=== PATIENT | male | born 1975 | race Caucasian/White ===

== ENCOUNTER 2022-03-02 08:08 | Inpatient (IN) | payer BC ==
--- NOTE | 2022-03-02 08:35 | ED ---
General Adult HPI - General Chief complaint: Chest Pain Stated complaint: Chest pain Time Seen by Provider: 03/02/22 08:16 Source: patient, RN notes reviewed, old records reviewed Mode of arrival: ambulatory Limitations: no limitations - History of Present Illness Initial comments: 46-year-old male with an episode of chest pain while at rest or patient was driving his car, developed pain in the center of his chest with bilateral arm pain. Patient did have associated nausea without vomiting.. He has no prior history of coronary artery disease. No cough. No fever. No dyspnea. He is a current smoker. Patient has since improved. - Related Data Allergies Allergy/AdvReac Type Severity Reaction Status Date / Time No Known Allergies Allergy Verified 03/02/22 08:18 Review of Systems ROS Statement: Those systems with pertinent positive or pertinent negative responses have been documented in the HPI. ROS Other: All systems not noted in ROS Statement are negative. Past Medical History Past Medical History: No Reported History History of Any Multi-Drug Resistant Organisms: None Reported Past Surgical History: Appendectomy Past Psychological History: Anxiety Smoking Status: Current every day smoker Past Alcohol Use History: Occasional Past Drug Use History: None Reported General Exam Limitations: no limitations General appearance: alert, in no apparent distress Head exam: Present: atraumatic, normocephalic Eye exam: Present: normal appearance, PERRL ENT exam: Present: normal exam Neck exam: Present: normal inspection. Absent: tenderness, meningismus Respiratory exam: Present: normal lung sounds bilaterally. Absent: respiratory distress, wheezes, rales Cardiovascular Exam: Present: regular rate, normal rhythm GI/Abdominal exam: Present: soft. Absent: distended, tenderness, guarding Extremities exam: Present: normal inspection, normal capillary refill. Absent: pedal edema, calf tenderness Neurological exam: Present: alert, oriented X3, CN II-XII intact. Absent: motor sensory deficit Psychiatric exam: Present: normal affect, normal mood Skin exam: Present: warm, dry, intact. Absent: cyanosis, diaphoretic Course Vital Signs 03/02/22 08:16 Temperature 97.7 F Pulse Rate 85 Respiratory 20 Rate Blood Pressure 163/99 O2 Sat by Pulse 98 Oximetry - Reevaluation(s) Reevaluation #1: 03/02/22 10:11 Patient is asymptomatic. EKG Findings - EKG Comments: EKG Findings:: EKG: Sinus rhythm rate of 84, W[place] interval 196, QRS duration 99, QTC 42, either tremor artifact versus flutter wave. No ST segment elevation. Medical Decision Making - Medical Decision Making 46-year-old male with no prior history of CAD presents with an episode of typical chest pain. EKG sinus rhythm without ST segment elevation. Chest x-ray is clear. Normal CBC, normal electrolytes, patient does have an elevated troponin at 0.07. His symptoms began just prior to arrival in the emergency department. Believe this is consistent with a non-ST segment elevated [place]. Patient is given aspirin and started on heparin in the emergency department. He will be admitted with cardiology on consult. The admitting physician and playground attendant have been paged. - Lab Data Result diagrams: 03/02/22 08:31 03/02/22 08:31 Lab Results 03/02/22 03/02/22 03/02/22 Range/Units 08:31 08:31 08:31 WBC 8.0 (3.8-10.6) k/uL RBC 4.57 (4.30-5.90) m/uL Hgb 14.0 (13.0-17.5) gm/dL Hct 38.7 L (39.0-53.0) % MCV 84.7 (80.0-100.0) fL MCH 30.6 (25.0-35.0) pg MCHC 36.2 (31.0-37.0) g/dL RDW 13.0 (11.5-15.5) % Plt Count 283 (150-450) k/uL MPV 8.4 Neutrophils % 63 % Lymphocytes % 24 % Monocytes % 8 % Eosinophils % 2 % Basophils % 0 % Neutrophils # 5.1 (1.3-7.7) k/uL Lymphocytes # 1.9 (1.0-4.8) k/uL Monocytes # 0.6 (0-1.0) k/uL Eosinophils # 0.2 (0-0.7) k/uL Basophils # 0.0 (0-0.2) k/uL PT 10.0 (9.0-12.0) sec INR 0.9 (<1.2) APTT 22.3 (22.0-30.0) sec D-Dimer 0.37 (<0.60) mg/L FEU Sodium 138 (137-145) mmol/L Potassium 4.7 (3.5-5.1) mmol/L Chloride 109 H (98-107) mmol/L Carbon Dioxide 17 L (22-30) mmol/L Anion Gap 12 mmol/L BUN 14 (9-20) mg/dL Creatinine 0.74 (0.66-1.25) mg/dL Est GFR (CKD-EPI)AfAm >90 (>60 ml/min/1.73 sqM) Est GFR (CKD-EPI)NonAf >90 (>60 ml/min/1.73 sqM) Glucose 123 H (74-99) mg/dL Calcium 9.7 (8.4-10.2) mg/dL Magnesium 1.9 (1.6-2.3) mg/dL Total Bilirubin 0.5 (0.2-1.3) mg/dL AST 38 (17-59) U/L ALT 49 (4-49) U/L Alkaline Phosphatase 71 (38-126) U/L Troponin I (0.000-0.034) ng/mL Total Protein 7.0 (6.3-8.2) g/dL Albumin 4.5 (3.5-5.0) g/dL Lipase 101 (23-300) U/L 03/02/22 Range/Units 08:31 WBC (3.8-10.6) k/uL RBC (4.30-5.90) m/uL Hgb (13.0-17.5) gm/dL Hct (39.0-53.0) % MCV (80.0-100.0) fL MCH (25.0-35.0) pg MCHC (31.0-37.0) g/dL RDW (11.5-15.5) % Plt Count (150-450) k/uL MPV Neutrophils % % Lymphocytes % % Monocytes % % Eosinophils % % Basophils % % Neutrophils # (1.3-7.7) k/uL Lymphocytes # (1.0-4.8) k/uL Monocytes # (0-1.0) k/uL Eosinophils # (0-0.7) k/uL Basophils # (0-0.2) k/uL PT (9.0-12.0) sec INR (<1.2) APTT (22.0-30.0) sec D-Dimer (<0.60) mg/L FEU Sodium (137-145) mmol/L Potassium (3.5-5.1) mmol/L Chloride (98-107) mmol/L Carbon Dioxide (22-30) mmol/L Anion Gap mmol/L BUN (9-20) mg/dL Creatinine (0.66-1.25) mg/dL Est GFR (CKD-EPI)AfAm (>60 ml/min/1.73 sqM) Est GFR (CKD-EPI)NonAf (>60 ml/min/1.73 sqM) Glucose (74-99) mg/dL Calcium (8.4-10.2) mg/dL Magnesium (1.6-2.3) mg/dL Total Bilirubin (0.2-1.3) mg/dL AST (17-59) U/L ALT (4-49) U/L Alkaline Phosphatase (38-126) U/L Troponin I 0.077 H* (0.000-0.034) ng/mL Total Protein (6.3-8.2) g/dL Albumin (3.5-5.0) g/dL Lipase (23-300) U/L Critical Care Time Critical Care Time: Yes Total Critical Care Time: 35 Disposition Clinical Impression: Acute non-ST elevation myocardial infarction (NSTEMI) Disposition: ADMITTED IP TO THIS HOSP Condition: Stable Is patient prescribed a controlled substance at d/c from ED?: No Referrals: Karissa Whitten MD [Primary Care Provider] - 1-2 days Time of Disposition: 10:12
--- NOTE | 2022-03-02 08:49 | XR ---
EXAMINATION TYPE: XR chest 2V DATE OF EXAM: 03/02/2022 COMPARISON: NONE HISTORY: Chest pain TECHNIQUE: Frontal and lateral views of the chest are obtained. FINDINGS: There is no focal air space opacity, pleural effusion, or pneumothorax seen. The cardiac silhouette size is within normal limits. The osseous structures are intact. There are overlying cynthia ds. IMPRESSION: No acute cardiopulmonary process.
[2022-03-02 08:50] LABS: Basophils % (A) 0 %; Eosinophils # (A) 0.2 k/uL (0-0.7); Eosinophils % (A) 2 %; HCT 38.7 % (39.0-53.0); Lymphocytes # (A) 1.9 k/uL (1.0-4.8); Lymphocytes % (A) 24 %; MCH 30.6 pg (25.0-35.0); MCHC 36.2 g/dL (31.0-37.0); MCV 84.7 fL (80.0-100.0); Mean Platelet Volume 8.4; Monocytes # (A) 0.6 k/uL (0-1.0); Monocytes % (A) 8 %; Neutrophils # (A) 5.1 k/uL (1.3-7.7); Neutrophils % (A) 63 %; Platelet Count 283 k/uL (150-450); RBC 4.57 m/uL (4.30-5.90)
[2022-03-02 09:12] LABS: ALT 49 U/L (4-49); AST 38 U/L (17-59); African American GFR (CKD) >90 (>60 ml/min/1.73 sqM); Albumin 4.5 g/dL (3.5-5.0); Alkaline Phosphatase 71 U/L (38-126); Anion Gap 12 mmol/L; Blood Urea Nitrogen 14 mg/dL (9-20); Calcium 9.7 mg/dL (8.4-10.2); Carbon Dioxide 17 mmol/L (22-30); Chloride 109 mmol/L (98-107); Glucose 123 mg/dL (74-99); Lipase 101 U/L (23-300); Magnesium 1.9 mg/dL (1.6-2.3); Non-African American GFR(CKD) >90 (>60 ml/min/1.73 sqM); Potassium 4.7 mmol/L (3.5-5.1); Sodium 138 mmol/L (137-145); Total Bilirubin 0.5 mg/dL (0.2-1.3)
[2022-03-02 09:14] LABS: INR 0.9 (<1.2); Partial Thromboplastin Time 22.3 sec (22.0-30.0)
[2022-03-02] MEDS ORDERED: ASPIRIN 325 MG TAB PO STA (10:08)
[2022-03-02] MEDS ORDERED: HEPARIN SODIUM 1,000 UN/ML (10ML VL) IV ONE ×2 (10:10→11:58)
[2022-03-02] MEDS ORDERED: NITROGLYCERIN SL TABS 0.4 MG TAB SUBLINGUAL PRN (10:10)
[2022-03-02] MEDS ORDERED: HEPARIN SOD,PORK IN 0.45% NACL 25,000 UNIT in 0.45% NACL 1 250ML.BAG IV SCH ×2 (10:15→16:00)
[2022-03-02] MEDS: ATORVASTATIN 80 MG TAB PO SCH (10:16)
[2022-03-02] MEDS ORDERED: ALPRAZolam 0.5 MG TAB PO PRN (11:08)
[2022-03-02] MEDS ORDERED: ATORVASTATIN 80 MG TAB PO STA (11:08)
[2022-03-02] MEDS ORDERED: ALPRAZolam 0.25 MG TAB PO PRN (11:08)
[2022-03-02] MEDS ORDERED: NITROGLYCERIN OINT 1 INCH/GM PACKET TOPICAL STA (11:13)
[2022-03-02] MEDS: SODIUM CHLORIDE 0.9% 1,000 ML in EMPTY BAG 1 BAG IV SCH (11:19)
[2022-03-02] MEDS ORDERED: VERAPAMIL 2.5 MG/ML 2 ML AMP ONE (11:32)
--- NOTE | 2022-03-02 11:36 | P.CRDCN ---
History of Present Illness History of present illness: This is a 46 year old male with a past medical history of hypertension currently not on medication, dyslipidemia, chronic tobacco use, family history of CAD (mother had IL in her 40s). 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 We have been asked to see in consultation for NSTEMI. He presents to the ER with chest discomfort. Began this morning, he was getting ready for work. It was located on the left side of his chest, radiating to his bilateral arms. He had associated shortness of breath and nausea. It progressively got worse throughout the day. Aggravated by activity. He denies any palpitations, lightheadedness, dizziness, syncope or near syncope. No specific alleviating factors. He states his chest pain resolved on its own when he arrived to the emergency department. He denies any history of CAD, IL, stroke, diabetes. He currently smokes one pack per day. Occasional alcohol use. Denies illicit drug use. DIAGNOSTICS * EKG reveals sinus rhythm, heart rate 84, nonspecific STT wave abnormalities. * Telemetry tracings indicate at bedside, sinus rhythm. * Chest xray no acute cardiopulmonary process * Laboratory reviewed, troponin 0.07 sodium 138, potassium 4.7, BUN 14, serum c rit 0.7, magnesium 1.9, WBC 8.0, hemoglobin 14, platelets 283, d-dimer negative * Current home cardiac medications include simvastatin 20 mg daily. REVIEW OF SYSTEMS At the time of my exam: CONSTITUTIONAL: Denies fever or chills. CARDIOVASCULAR: + chest pain,Denies shortness of breath, orthopnea, PND or palpitations. RESPIRATORY: Denies cough. GASTROINTESTINAL: Denies abdominal pain, diarrhea, constipation, nausea or vomiting. MUSCULOSKELETAL: Denies myalgias. NEUROLOGIC: Denies numbness, tingling, headacbe or weakness. ENDOCRINE: Denies fatigue, weight change, polydipsia or polyurina. GENITOURINARY: Denies burning, hematuria or urgency with micturation. HEMATOLOGIC: Denies history of anemia or bleeding. PHYSICAL EXAMINATION Blood pressure 152/94, heart rate 82, afebrile, oxygen saturation 95% on room air CONSTITUTIONAL: No apparent distress. HEENT: Head is normocephalic. Pupils are equal, round. Sclerae anicteric. Mucous membranes of the mouth are moist. No JVD. No carotid bruit. CHEST EXAMINATION: Lungs are clear to auscultation. No chest wall tenderness is noted on palpation or with deep breathing. HEART EXAMINATION: Regular rate and rhythm. S1, S2 heard. No murmurs, gallops or rub. ABDOMEN: Soft, nontender. Positive bowel sounds. EXTREMITIES: 2+ peripheral pulses, no lower extremity edema and no calf tenderness. NEUROLOGIC EXAMINATION: Patient is awake, alert and oriented x3. ASSESSMENT NSTEMI History of hypertension Dyslipidemia Chronic nicotine dependence Family history of coronary artery disease PLAN Plan for cardiac catheterization today with Dr. Young. Keep patient NPO Aspirin, statin, nitropaste Obtain 2D echocardiogram and doppler study to assess cardiac structure and function. I have discussed the risks, benefits and alternative therapies for the above- mentioned procedure and for both sedation/analgesia as well as necessary blood product administration, if indicated, as they pertain to this patient. The patient has indicated understanding and acceptance of the risks and procedures discussed. Questions have been answered appropriately and he is agreeable to move forward with the above-stated procedure. Further recommendations based on clinical course Nurse practitioner note has been reviewed by physician. Signing provider agrees with the documented findings, assessment, and plan of care. Past Medical History Past Medical History: No Reported History History of Any Multi-Drug Resistant Organisms: None Reported Past Surgical History: Appendectomy Past Psychological History: Anxiety Smoking Status: Current every day smoker Past Alcohol Use History: Occasional Past Drug Use History: None Reported Medications and Allergies Home Medications Medication Instructions Recorded Confirmed Type Rosuvastatin [Crestor] 20 mg PO DAILY 03/02/22 03/02/22 History Vortioxetine Hydrobromide 10 mg PO DAILY 03/02/22 03/02/22 History [Trintellix] Allergies Allergy/AdvReac Type Severity Reaction Status Date / Time No Known Allergies Allergy Verified 03/02/22 10:40 Physical Exam Vitals: Vital Signs Temp Pulse Resp BP Pulse Ox 03/02/22 08:16 97.7 F 85 20 163/99 98 Intake and Output 03/01/22 03/02/22 03/02/22 22:59 06:59 14:59 Other: Weight 99.79 kg Results 03/02/22 08:31 03/02/22 08:31 Cardiac Enzymes 03/02/22 03/02/22 Range/Units 08:31 08:31 AST 38 (17-59) U/L Troponin I 0.077 H* (0.000-0.034) ng/mL Coagulation 03/02/22 Range/Units 08:31 PT 10.0 (9.0-12.0) sec APTT 22.3 (22.0-30.0) sec CBC 03/02/22 Range/Units 08:31 WBC 8.0 (3.8-10.6) k/uL RBC 4.57 (4.30-5.90) m/uL Hgb 14.0 (13.0-17.5) gm/dL Hct 38.7 L (39.0-53.0) % Plt Count 283 (150-450) k/uL Comprehensive Metabolic Panel 03/02/22 Range/Units 08:31 Sodium 138 (137-145) mmol/L Potassium 4.7 (3.5-5.1) mmol/L Chloride 109 H (98-107) mmol/L Carbon Dioxide 17 L (22-30) mmol/L BUN 14 (9-20) mg/dL Creatinine 0.74 (0.66-1.25) mg/dL Glucose 123 H (74-99) mg/dL Calcium 9.7 (8.4-10.2) mg/dL AST 38 (17-59) U/L ALT 49 (4-49) U/L Alkaline Phosphatase 71 (38-126) U/L Total Protein 7.0 (6.3-8.2) g/dL Albumin 4.5 (3.5-5.0) g/dL Current Medications Generic Name Dose Route Start Last Admin Trade Name Freq PRN Reason Stop Dose Admin Aspirin 325 mg 03/03/22 09:00 Aspirin 325 Mg Tab PO DAILY [facility] Atorvastatin Calcium 80 mg 03/02/22 10:15 03/02/22 10:16 Atorvastatin 80 Mg Tab PO 80 mg DAILY [facility] Administration Heparin Sodium/Sodium Chloride 250 mls @ 9.999 mls/hr 03/02/22 10:15 03/02/22 10:22 25,000 unit/ Sodium Chloride IV 10.02 units/kg/hr .Q24H RICHA 9.999 mls/hr Administration Protocol 10.02 UNITS/KG/HR Nitroglycerin 0.4 mg 03/02/22 10:10 Nitroglycerin Sl Tabs 0.4 Mg Tab SUBLINGUAL Q5M PRN Chest Pain Intake and Output 03/01/22 03/02/22 03/02/22 22:59 06:59 14:59 Other: Weight 99.79 kg Patient Weight 03/03/22 06:59 Weight 99.79 kg 03/02/22 08:31 03/02/22 08:31
[2022-03-02] MEDS ORDERED: SODIUM CHLORIDE 0.9% 1,000 ML IV ONE (11:43)
[2022-03-02] MEDS ORDERED: fentaNYL (PF) 50 MCG/ML 2 ML AMP ONE (11:49)
[2022-03-02] MEDS ORDERED: fentaNYL (PF) 50 MCG/ML 2 ML AMP IV ONE (11:53)
[2022-03-02] MEDS ORDERED: LIDOCAINE 1% INJ 10MG/ML (30 ML VIAL-PF) SQ ONE (11:55)
[2022-03-02] MEDS ORDERED: MIDAZOLAM 2 MG/2 ML VIAL IV ONE (11:55)
[2022-03-02] MEDS ORDERED: VERAPAMIL SYRINGE (5 MG/10 ML) INTRAARTER ONE (11:56)
[2022-03-02] MEDS ORDERED: NITROGLYCERIN OINT 1 INCH/GM PACKET TOPICAL ONE ×2 (12:09→12:11)
[2022-03-02] MEDS ORDERED: IOPAMIDOL-370 125ML BTL INJ ONE (12:33)
[2022-03-02] MEDS ORDERED: RX INFO: IV CONTRAST WAS GIVEN 1 EACH MISC MISCELLANE PRN (12:39)
[2022-03-02] MEDS ORDERED: MD COMMUNICATION TO PHARMACY 1 EACH MISC PO ONE ×2 (14:12)
[2022-03-02] MEDS: lisinopriL 5 MG TAB PO SCH (14:19)
[2022-03-02] MEDS: SODIUM CHLORIDE 0.9% 1,000 ML IV SCH (14:30)
--- NOTE | 2022-03-02 14:54 | P.CONS ---
History of Present Illness - Reason for Consult Consult date: 03/02/22 History of colon polyps Requesting physician: Kj Kaba - Chief Complaint Chest pain - History of Present Illness This a pleasant 46-year-old male with a past medical history including hypertension, dyslipidemia, chronic tobacco use who presented to the emergency department today with complaints of chest pain. Apparently patient was driving and had substernal chest pain that radiated down both of his arms. He had associated nausea but no vomiting. 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 Reportedly had extensive LAD disease and is scheduled for coronary bypass on Saturday with cardiothoracic. Cardio thoracic surgery reached out to gastroenterology because they had some concerns patient had previous history of colon polyps last colonoscopy 15 years ago and has had some intermittent bright red blood per rectum with stools. Patient states last colonoscopy about 15 years ago while he was in the , at that time it was related to blood in stool. He was told that he had colon polyps, hemorrhoids and bleeding was likely related to his hemorrhoids. Patient never had a follow-up colonoscopy since that time. He states his bowel movements are regular, usually daily, denies any hard stools or straining. However he does state that he will have intermittent bright red blood with stools on occasion. He notes it as small amount. On admission hemoglobin stable at 14. He denies any history of colitis or Crohn's disease, no associated abdominal cramping or pain with bleeding. Denies any previous history of ulcers. Denies any current rectal bleeding or blood in his stool. Review of Systems REVIEW OF SYSTEMS: CARDIOPULMONARY: Presented with chest pain, shortness of breath. Resolved at this time. Gastrointestinal: Denies any abdominal pain. No nausea or vomiting. No hematemesis, coffee-ground emesis. No rectal bleeding, or melena. GENITOURINARY: No dysuria or hematuria. MUSCULOSKELETAL: Reports normal range of motion., Joint pain. SKIN: No rashes. No jaundice. ENDOCRINE: No chills, fevers. No excessive weight gain or loss. No polydipsia or polyuria. PSYCHIATRIC: Unremarkable. NEUROLOGY: No change in mental status. Denies dizziness, headache. ENT: Vision unremarkable. CONSTITUTIONAL: No recent weight loss. No fever, chills, night sweats. Past Medical History Past Medical History: No Reported History History of Any Multi-Drug Resistant Organisms: None Reported Past Surgical History: Appendectomy Past Psychological History: Anxiety Smoking Status: Current every day smoker Past Alcohol Use History: Occasional Past Drug Use History: None Reported - Past Family History Mother Family Medical History: Diabetes Mellitus, Myocardial Infarction (ID) (At age 48) Father Family Medical History: No Reported History Medications and Allergies Home Medications Medication Instructions Recorded Confirmed Type Rosuvastatin [Crestor] 20 mg PO DAILY 03/02/22 03/02/22 History Vortioxetine Hydrobromide 10 mg PO DAILY 03/02/22 03/02/22 History [Trintellix] Allergies Allergy/AdvReac Type Severity Reaction Status Date / Time No Known Allergies Allergy Verified 03/02/22 10:40 Physical Exam Vitals: Vital Signs Temp Pulse Pulse Resp BP BP Pulse Ox 03/02/22 13:54 67 16 139/73 97 03/02/22 13:24 77 16 148/74 98 03/02/22 13:09 67 16 143/70 97 03/02/22 12:54 68 16 143/68 98 03/02/22 12:42 82 16 150/82 97 03/02/22 11:00 82 18 152/94 95 03/02/22 10:30 72 22 140/90 97 03/02/22 10:00 64 22 137/87 96 03/02/22 09:30 77 22 129/83 97 03/02/22 09:00 82 18 156/91 97 03/02/22 08:16 97.7 F 85 20 163/99 98 Intake and Output 03/01/22 03/02/22 03/02/22 22:59 06:59 14:59 Intake Total 400 Balance 400 Intake: IV 400 Other: Weight 99.79 kg General appearance: The patient is alert, oriented, appears in no acute distress. HET: Head is normocephalic and atraumatic. Conjunctiva pink. Sclera anicteric. Neck: Supple without lymphadenopathy. Trachea midline. Heart: S1 S2. Regular rate and rhythm. Lungs: Clear to auscultation. Abdomen: Soft, nontender, nondistended with bowel sounds. No guarding or rigidity. Skin: No rashes. No jaundice. Extremities: Normal skin color and turgor. No pedal edema. Neurological: No focal deficits. Alert and oriented x3. Results CBC & Chem 7: 03/02/22 08:31 03/02/22 08:31 Labs: Abnormal Lab Results - Last 24 Hours (Table) 03/02/22 03/02/22 03/02/22 Range/Units 08:31 08:31 08:31 Hct 38.7 L (39.0-53.0) % Chloride 109 H (98-107) mmol/L Carbon Dioxide 17 L (22-30) mmol/L Glucose 123 H (74-99) mg/dL Troponin I 0.077 H* (0.000-0.034) ng/mL 03/02/22 Range/Units 11:13 Hct (39.0-53.0) % Chloride (98-107) mmol/L Carbon Dioxide (22-30) mmol/L Glucose (74-99) mg/dL Troponin I 0.212 H* (0.000-0.034) ng/mL Chest x-ray: report reviewed (No acute cardiopulmonary process) Assessment and Plan (1) Rectal bleeding Narrative/Plan: 46-year-old male who presented to the emergency department with chest pain diagn osed with NSTEMI and underwent cardiac catheterization showing disease of the LAD. Patient is scheduled for bypass surgery on Saturday. Cardiothoracic surgery was obtaining history and patient had made it to a colonoscopy 15 years ago findings of colon polyps and occasional intermittent rectal bleeding. The reason behind initial colonoscopy was due to occasional rectal bleeding which he told was likely due to hemorrhoids. Patient states that he still does have occasional intermittent bright red blood with bowel movements. Patient's hemoglobin is stable at 14. Likely etiology is related to hemorrhoids, however other possible etiologies need to be considered such as AVM, colon polyps, and/ or colon cancer. Patient would have to undergo colonoscopy to assess all etiologies, unfortunately there is no gastroenterology available through the weekend. Due to patient's history of colon polyps would recommend at some point in the future, he undergo a colonoscopy which is reasonable to do post bypass surgery. There is no absolute contraindication from our standpoint for anticoagulation. Current Visit: Yes Status: Acute Code(s): K62.5 - HEMORRHAGE OF ANUS AND RECTUM SNOMED Code(s): 14416063 (2) History of colon polyps Current Visit: Yes Status: Acute Code(s): Z86.010 - PERSONAL HISTORY OF COLONIC POLYPS SNOMED Code(s): 526118138 (3) History of hypertension Current Visit: Yes Status: Acute Code(s): Z86.79 - PERSONAL HISTORY OF OTHER DISEASES OF THE CIRCULATORY SYSTEM SNOMED Code(s): 847942659 (4) History of hemorrhoids Current Visit: Yes Status: Acute Code(s): Z87.19 - PERSONAL HISTORY OF OTHER DISEASES OF THE DIGESTIVE SYSTEM SNOMED Code(s): 72723958216696684 (5) Acute non-ST elevation myocardial infarction (NSTEMI) Current Visit: Yes Status: Acute Code(s): I21.4 - NON-ST ELEVATION (NSTEMI) MYOCARDIAL INFARCTION SNOMED Code(s): 210488619 Plan: 1. Continue symptomatic and supportive care 2. Continue recommendations from cardiology and cardiothoracic surgery 3. Recommend colonoscopy for history of colon polyps, rectal bleeding as an ou tpatient. Likely rectal bleeding is related to hemorrhoids, no indication to anticoagulation as patient does not have any active rectal bleeding, hemoglobin stable at 14 Thank you for allowing us to participate in the care of the patient, the GI service will sign off, gastroenterology will not be available at the hospital this weekend and through next week. If further evaluation by gastroenterology is required the patient will need transfer as per the primary team's discretion. Dr. Narinder Young I agree with the dictator's note, documented as a scribe by Crissy Grande.
--- NOTE | 2022-03-02 15:00 | P.GSCN ---
History of Present Illness Consult date: 03/02/22 Reason for Consult: Coronary artery disease, non-ST elevated myocardial infarction this admission evaluation for myocardial revascularization Requesting physician: Jose Young History of present illness: This is a 46-year-old gentleman who follows on an outpatient basis with Dr. Whitten for his primary care service. He has a past medical history significant for hyperlipidemia, hypertension, depression, chronic ongoing tobacco dependence and a family history of early onset coronary artery disease with his mother having a myocardial infarction at age 48. The patient also has a history of colon polyps and has recently been having episodes of diarrhea with occasional bloody stools 1-2 times per month. He presented to the emergency department here at [facility] today with complaints of chest pain associated with shortness of breath, nausea and pain radiating down his bilateral upper extremities. He reports he felt fairly fuzzy in his head during the episode of chest pain. He denies any recent fever, chills, vomiting, palpitations, dizziness, near syncope, syncope, orthopnea, headache, or cough. A 12-lead EKG was completed in the emergency department which showed normal sinus rhythm with nonspecific STT wave abnormalities with a heart rate of 84 BPM. A chest x-ray was completed which showed no acute cardiopulmonary process. Initial laboratory results showed a WBC count of 8.0, hemoglobin 14.0, hematocrit 38.7, platelets 283, PT 10.0, INR 0.9, PTT 22.3, d-dimer 0.37, sodium 138, potassium 4.7, chloride 109, CO2 17, BUN 14, creatinine 0.74, glucose 123, calcium 9.7, magnesium 1.9, initial troponin was slightly elevated at 0.77 and a repeat troponin was elevated at 0.212 ruling him in for a non-ST elevated myocardial infarction. Due to the patient's presenting symptoms, family history of early onset coronary artery disease and his elevated troponins a consult was placed to Dr. valladares from [facility]. The patient subsequently underwent a heart catheterization which demonstrated a 90% stenosis to his proximal left anterior descending coronary artery. The patient's transthoracic 2-D echocardiogram report remains pending. Due to the findings on the heart catheterization a consult was placed to Dr. Angel Colby from cardiothoracic surgery for further treatment recommendations including myocardial revascularization surgery. Review of Systems A 14 point review of systems was completed was negative except as mentioned in HPI. Past Medical History Past Medical History: Hyperlipidemia, Hypertension Last Myocardial Infarction Date:: 03/02/2022 History of Any Multi-Drug Resistant Organisms: None Reported Past Surgical History: Appendectomy Additional Past Surgical History / Comment(s): Colonoscopy 15 years ago with findings of polyps Past Psychological History: Anxiety, Depression Smoking Status: Current every day smoker Past Alcohol Use History: Occasional Past Drug Use History: None Reported - Past Family History Mother Family Medical History: Diabetes Mellitus, Myocardial Infarction ([place]) (At age 48) Father Family Medical History: No Reported History Medications and Allergies Home Medications Medication Instructions Recorded Confirmed Type Rosuvastatin [Crestor] 20 mg PO DAILY 03/02/22 03/02/22 History Vortioxetine Hydrobromide 10 mg PO DAILY 03/02/22 03/02/22 History [Trintellix] Allergies Allergy/AdvReac Type Severity Reaction Status Date / Time No Known Allergies Allergy Verified 03/05/22 06:36 Surgical - Exam Vital Signs Temp Pulse Resp BP Pulse Ox 97.7 F 85 20 163/99 98 03/02/22 08:16 03/02/22 08:16 03/02/22 08:16 03/02/22 08:16 03/02/22 08:16 - General well developed, well nourished, no distress, no pain, obese - Eyes PERRL, normal ocular movement, no pale, no icteric, no deviation - ENT normal pinna, normal nares, normal mucosa, no hearing loss, no congestion, dentures (Upper plate dentures) - Neck Neck is supple, no JVD. no masses, no bruits, trachea midline, no venous distension - Respiratory Lungs essentially clear throughout area and no wheezes, rhonchi or crackles. Respirations are symmetrical and nonlabored. - Cardiovascular Regular rhythm and rate. S1 and S2 present, negative for S3, gallop or murmur. Peripheral pulses palpable. No edema present. - Abdomen Abdomen is soft, nontender and nondistended. Active bowel sounds present in all 4 abdominal quadrants. No guarding or rigidity. No organomegaly appreciated. - Genitourinary Deferred - Rectum Deferred - Integumentary Skin is warm and dry. No clubbing or cyanosis is present. no rash, no growths, no abnormal pigmentation - Neurologic No focal deficits. Cranial nerves II through XII intact. normal coordination, normal sensation - Musculoskeletal Moves all 4 extremities with equal strength bilaterally. - Psychiatric oriented to time, oriented to person, oriented to place, speech is normal, memory intact Results - Labs 03/05/22 12:27 03/05/22 12:27 Abnormal Lab Results - Last 24 Hours (Table) 03/02/22 03/02/22 03/02/22 Range/Units 08:31 08:31 08:31 Hct 38.7 L (39.0-53.0) % Chloride 109 H (98-107) mmol/L Carbon Dioxide 17 L (22-30) mmol/L Glucose 123 H (74-99) mg/dL Troponin I 0.077 H* (0.000-0.034) ng/mL 03/02/22 Range/Units 11:13 Hct (39.0-53.0) % Chloride (98-107) mmol/L Carbon Dioxide (22-30) mmol/L Glucose (74-99) mg/dL Troponin I 0.212 H* (0.000-0.034) ng/mL Diabetes panel 03/02/22 Range/Units 08:31 Sodium 138 (137-145) mmol/L Potassium 4.7 (3.5-5.1) mmol/L Chloride 109 H (98-107) mmol/L Carbon Dioxide 17 L (22-30) mmol/L BUN 14 (9-20) mg/dL Creatinine 0.74 (0.66-1.25) mg/dL Glucose 123 H (74-99) mg/dL Calcium 9.7 (8.4-10.2) mg/dL AST 38 (17-59) U/L ALT 49 (4-49) U/L Alkaline Phosphatase 71 (38-126) U/L Total Protein 7.0 (6.3-8.2) g/dL Albumin 4.5 (3.5-5.0) g/dL Calcium panel 03/02/22 Range/Units 08:31 Calcium 9.7 (8.4-10.2) mg/dL Albumin 4.5 (3.5-5.0) g/dL Pituitary panel 03/02/22 Range/Units 08:31 Sodium 138 (137-145) mmol/L Potassium 4.7 (3.5-5.1) mmol/L Chloride 109 H (98-107) mmol/L Carbon Dioxide 17 L (22-30) mmol/L BUN 14 (9-20) mg/dL Creatinine 0.74 (0.66-1.25) mg/dL Glucose 123 H (74-99) mg/dL Calcium 9.7 (8.4-10.2) mg/dL Adrenal panel 03/02/22 Range/Units 08:31 Sodium 138 (137-145) mmol/L Potassium 4.7 (3.5-5.1) mmol/L Chloride 109 H (98-107) mmol/L Carbon Dioxide 17 L (22-30) mmol/L BUN 14 (9-20) mg/dL Creatinine 0.74 (0.66-1.25) mg/dL Glucose 123 H (74-99) mg/dL Calcium 9.7 (8.4-10.2) mg/dL Total Bilirubin 0.5 (0.2-1.3) mg/dL AST 38 (17-59) U/L ALT 49 (4-49) U/L Alkaline Phosphatase 71 (38-126) U/L Total Protein 7.0 (6.3-8.2) g/dL Albumin 4.5 (3.5-5.0) g/dL - Imaging Chest x-ray: report reviewed, image reviewed EKG: image reviewed Assessment and Plan Assessment: 1. Coronary artery disease with a 90% stenosis to his proximal left anterior descending coronary artery 2. Non-ST elevated myocardial infarction this admission 3. Hypertension 4. Hyperlipidemia 5. History of depression 6. Chronic ongoing tobacco dependence smokes 1 pack of cigarettes per day 7. Frequent episodes of diarrhea with occasional bloody stools 1-2 times per month Plan: The patient was seen and examined at his bedside in the extended stay unit. His chart and diagnostics were reviewed. His case was discussed in detail with Dr. Angel Colby from cardiothoracic surgery. Preoperative testing and preoperative workup has been initiated. Treatment options have been discussed with the patient including myocardial revascularization. Once his preoperative workup has been completed an STS risk score will be calculated and discussed with the patient. Once the patient is able to ambulate a 5 m walk test will be completed. Continue to optimize medical management with aspirin, statin and beta shahid. Medical management and other comorbidities per primary care service. The patient has been tentatively scheduled for off-pump myocardial revascularization surgery with left internal mammary artery, exclusion of left atrial appendage and intraoperative transesophageal echocardiogram for 03/05/2022 to be performed by Dr. Angel Colby. We have consulted Dr. Narinder Young from gastroenterology to follow the episodes of diarrhea and occasional bloody stools. Dr. Vargas has also been consulted for pulmonary and critical care management. More recommendations to follow based on patient's clinical course. Thank you Dr. Bridgette Young for this consult and we look for to working with you in the care of this patient. I have personally seen and examined the patient, performed the documentation and the assessment and plan as written. 30 minutes spent on the visit . Arthur GALLEGOS The patient is a 46 year old male with a past medical history significant for hypertension, hypercholesterolemia, and tobacco use, who presented to the hospital complaining of chest pain. Workup revealed a myocardial infarction. Cardiac catheterization revealed a tight proximal/ostial left anterior descending artery lesion. A coronary artery bypass was recommended. The risks, benefits, and alternatives to the procedure were discussed with the patient and with his family members. All of their questions were answered. Consent was obtained. We will plan on performing his procedure on 03/05/2022.
--- NOTE | 2022-03-02 15:01 | P.CNPUL ---
History of Present Illness Consult date: 03/02/22 Requesting physician: [place] Calero Reason for consult: other (Preoperative pulmonary clearance) Chief complaint: Chest discomfort History of present illness: This is a 46-year-old white male, [id number] smoking history, known history of dyslipidemia, strong family history of coronary artery disease, mother had ND in her 40s, patient presented to the ER with chest discomfort. Patient felt that the pain was left-sided, radiating to upper extremities, it was associated with slight shortness of breath and nausea/diaphoresis. Patient was seen by cardiology and felt to have non-ST elevation myocardial infarction. Patient underwent cardiac catheterization, he was found to have significant extensive LAD disease, patient was advised by cardiology to have myocardial revascularization, and this is scheduled to be done next Saturday. We were asked to see the patient on consultation for pulmonary clearance. Patient doesn't smoke, and he denies any symptoms of cough wheezing or shortness of breath. Never been diagnosed with COPD, not on any inhalers. Patient has been quite active able to walk a mile easily and able to climb a few flights of stairs without any difficulty. Again he had no previous documented pulmonary bedside PFT is pending Review of Systems Constitutional: Negative HEENT: Negative GI: Negative Genitourinary: Negative Pulmonary: Negative Cardiac: As noted in HPI Genitourinary: Negative Muscular skeletal: Negative Urologic: Negative Psychiatric: Negative Hematologic: Negative Skin: Negative Past Medical History Past Medical History: No Reported History History of Any Multi-Drug Resistant Organisms: None Reported Past Surgical History: Appendectomy Past Psychological History: Anxiety Smoking Status: Current every day smoker Past Alcohol Use History: Occasional Past Drug Use History: None Reported Medications and Allergies Home Medications Medication Instructions Recorded Confirmed Type Rosuvastatin [Crestor] 20 mg PO DAILY 03/02/22 03/02/22 History Vortioxetine Hydrobromide 10 mg PO DAILY 03/02/22 03/02/22 History [Trintellix] Allergies Allergy/AdvReac Type Severity Reaction Status Date / Time No Known Allergies Allergy Verified 03/02/22 10:40 Physical Exam Vitals: Vital Signs Temp Pulse Pulse Resp BP BP Pulse Ox 03/02/22 13:54 67 16 139/73 97 03/02/22 13:24 77 16 148/74 98 03/02/22 13:09 67 16 143/70 97 03/02/22 12:54 68 16 143/68 98 03/02/22 12:42 82 16 150/82 97 03/02/22 11:00 82 18 152/94 95 03/02/22 10:30 72 22 140/90 97 03/02/22 10:00 64 22 137/87 96 03/02/22 09:30 77 22 129/83 97 03/02/22 09:00 82 18 156/91 97 03/02/22 08:16 97.7 F 85 20 163/99 98 Intake and Output 03/01/22 03/02/22 03/02/22 22:59 06:59 14:59 Intake Total 400 Balance 400 Intake: IV 400 Other: Weight 99.79 kg Physical Exam: Revealed a 46-year-old white male in no distress very pleasant. Head: Atraumatic, normocephalic. HEENT:[Neck is supple.] [No neck masses.] [No thyromegaly.] [No JVD.] Chest: [Clear throughout, no crackles, no rhonchi, no wheezes.] Cardiac Exam: [Normal S1 and S2, no S3 gallop, no murmur.] Abdomen: [Soft, nontender, no megaly, no rebound, no guarding, normal bowel sounds.] Extremities: [No clubbing, no edema, no cyanosis.] Neurological Exam: [No focal neurologic deficit.] Alert oriented 3 Psychiatric: Normal mood, affect and normal mental status examination. Skin: No rashes. Results - Laboratory Findings CBC and BMP: 03/02/22 08:31 03/02/22 08:31 PT/INR, D-dimer PT 10.0 sec (9.0-12.0) 03/02/22 08:31 INR 0.9 (<1.2) 03/02/22 08:31 D-Dimer 0.37 mg/L FEU (<0.60) 03/02/22 08:31 Abnormal lab findings: Abnormal Labs 03/02/22 03/02/22 03/02/22 08:31 08:31 08:31 Hct 38.7 L Chloride 109 H Carbon Dioxide 17 L Glucose 123 H Troponin I 0.077 H* 03/02/22 11:13 Hct Chloride Carbon Dioxide Glucose Troponin I 0.212 H* - Diagnostic Findings Chest x-ray: image reviewed (Chest x-ray on admission showed no evidence of cardiopulmonary process) Assessment and Plan Assessment: Impression: Coronary artery disease, patient is scheduled for myocardial revascularization next Saturday Tobacco dependence syndrome, [id number] smoking history but the patient has no symptoms to suggest COPD Family history of premature coronary artery disease Dyslipidemia Recommendation: Patient is considered low operative risk We'll clear the patient for surgery as scheduled Incentive spirometry. Counseled regarding smoking cessation Counseled regarding vaccination for COVID-19 on outpatient basis We will continue to follow Time with Patient: Greater than 30
[2022-03-02] MEDS: HEPARIN SOD,PORK IN 0.45% NACL 25,000 UNIT in 0.45% NACL 1 250ML.BAG IV SCH (16:18)
[2022-03-02] MEDS: NITROGLYCERIN OINT 1 INCH/GM PACKET TOPICAL SCH (16:21)
[2022-03-02 17:16] LABS: Appearance,Urine Clear (Clear); Bilirubin,Urine Negative (Negative); Blood,Urine Negative (Negative); Color,Urine Light Yellow; Glucose,Urine (UA) Negative (Negative); Ketones,Urine Negative (Negative); Leukocyte Esterase,Urine Negative (Negative); Nitrite,Urine Negative (Negative); Protein,Urine Negative (Negative); Specific Gravity,Urine 1.016 (1.001-1.035); Urobilinogen,Urine <2.0 mg/dL (<2.0)
[2022-03-02] MEDS: NICOTINE 21MG/24HR PATCH TRANSDERM SCH (17:32)
--- NOTE | 2022-03-02 17:51 | CA ---
Transthoracic Echo Report Name: Rambo De Los Santos Age: 46 Gender: M : 1975 Exam Date: 03/02/2022 13:30 Exam Location: [facility] Ht (in): 70 Wt (lb): 220 Ordering Physician: Laura Garcia Attending/Referring Phys: Environmental Assistant Joan Dennis RDCS Procedure CPT: Indications: nstemi Cardiac Hx: Technical Quality: Technically difficult study Contrast 1: Lumason Total Dose (mL): 4 Contrast 2: Total Dose (mL): MEASUREMENTS (Male / Female) Normal Values 2D ECHO LV Diastolic Diameter PLAX 3.5 cm 4.2 - 5.9 / 3.9 - 5.3 cm LV Systolic Diameter PLAX 2.1 cm IVS Diastolic Thickness 1.3 cm 0.6 - 1.0 / 0.6 - 0.9 cm LVPW Diastolic Thickness 1.4 cm 0.6 - 1.0 / 0.6 - 0.9 cm LV Relative Wall Thickness 0.8 RV Internal Dim ED PLAX 3.1 cm LA Volume 45.8 cm??? 18 - 58 / 22 - 52 cm??? M-MODE Aortic Root Diameter MM 3.8 cm LA Systolic Diameter MM 4.4 cm LA Ao Ratio MM 1.2 AV Cusp Separation MM 2.3 cm DOPPLER AV Peak Velocity 118.1 cm/s AV Peak Gradient 5.6 mmHg LVOT Peak Velocity 94.8 cm/s LVOT Peak Gradient 3.6 mmHg MV Area PHT 4.6 cm??? Mitral E Point Velocity 115.2 cm/s Mitral A Point Velocity 57.6 cm/s Mitral E to A Ratio 2.0 MV Deceleration Time 164.8 ms MV E' Velocity 11.3 cm/s Mitral E to MV E' Ratio 10.2 TR Peak Velocity 156.6 cm/s TR Peak Gradient 9.8 mmHg Right Ventricular Systolic Press 14.4 mmHg FINDINGS Left Ventricle Mildly increased left ventricular wall thickness. No obvious regional wall motion abnormalities. Left ventricular ejection fraction is estimated at 50-55 %. Right Ventricle Normal right ventricular size and function. Right ventricular systolic pressure within normal limits. Right Atrium Normal right atrial size. Left Atrium Normal left atrial size. Mitral Valve No mitral stenosis. Mild mitral regurgitation. Aortic Valve No aortic valve stenosis or regurgitation. Tricuspid Valve Structurally normal tricuspid valve. Mild tricuspid regurgitation. Pulmonic Valve Trace pulmonic regurgitation. Pericardium No pericardial effusion. Aorta Normal size aortic root and proximal ascending aorta. CONCLUSIONS Technically difficult study for interpretation Normal left ventricular dimension and systolic function Previewed by: Dr. Dustin Candelaria MD (Electronically Signed) Final Date: 02 March 2022 17:50
[2022-03-02] MEDS: ACETAMINOPHEN TAB 325 MG TAB PO PRN (19:00)
[2022-03-02] MEDS: METOPROLOL TARTRATE 25 MG TAB PO SCH (21:06)
--- NOTE | 2022-03-02 22:07 | US ---
EXAMINATION TYPE: US carotid duplex BILAT DATE OF EXAM: 03/02/2022 COMPARISON: NONE CLINICAL HISTORY: Pre-Op Cardiac Surgery. Pre-op cardiac surgery. Current smoker, hypertension, hyper lipidemia. TECHNIQUE: Carotid duplex ultrasound examination. Indirect Doppler criteria was utilized. FINDINGS: EXAM MEASUREMENTS: RIGHT: Peak Systolic Velocity (PSV) cm/sec ----- Right CCA: 95.6 ----- Right ICA: 111.3 ----- Right ECA: 142.1 ICA/CCA ratio: 1.2 RIGHT: End Diastole cm/sec ----- Right CCA: 16.7 ----- Right ICA: 33.4 ----- Right ECA: 16.6 LEFT: Peak Systolic Velocity (PSV) cm/sec ----- Left CCA: 99.1 ----- Left ICA: 189.6 ----- Left ECA: 196.8 ICA/CCA ratio: 1.9 LEFT: End Diastole cm/sec ----- Left CCA: 24.1 ----- Left ICA: 36.2 ----- Left ECA: 29.5 VERTEBRALS (direction of flow): Right Vertebral: Antegrade Left Vertebral: Antegrade Rhythm: Normal TRAIN MASTER NOTES: Elevated velocities noted within bilateral ECA and left ICA. Plaque seen within bilateral bulbs IMPRESSION: Elevated velocity in the left internal carotid artery suggestive of 50-70% stenosis. There is 50-70% stenosis in both external carotid arteries. There is antegrade flow in the vertebral arteries. Criteria for Assigning % of Stenosis / Diameter reduction (Estimation based on the indirect measurements of the internal carotid artery velocities (ICA PSV). 1. Normal (no stenosis)=ICA PSV < 125 cm/s: ratio < 2.0: ICA EDV<40 cm/s. 2. Less than 50% stenosis=ICA PSV < 125 cm/s: ratio < 2.0: ICA EDV<40 cm/s. 3. 50 to 69% stenosis=ICA PSV of 125 to 230 cm/s: ration 2.0 ? 4.0: ICA EDV 40-100 cm/s. 4. Greater than 70% stenosis to near occlusion= ICA PSV > 230 cm/s: ratio > 4.0: ICA EDV > 100 cm/s. 5. Near occlusion= ICA PSV velocities may be low or undetectable: variable ratio and ICA EDV. 6. Total occlusion=unable to detect flow.
[2022-03-02] MEDS: MUPIROCIN 2% OINT 22 GM TUBE NASAL SCH (22:19)
--- NOTE | 2022-03-02 23:44 | CC ---
CARDIAC CATHETERIZATION REPORT INDICATION: Acute [id number] elevation SC. PROCEDURE NOTE: After obtaining informed consent, left heart catheterization and coronary angiogram were performed via the right radial artery. A size 5 right Selena catheter was used to engage the right coronary artery, and I obtained hemodynamics with the same catheter. The left coronary artery was engaged using a 6-Telugu Selena catheter. Tolerated the procedure well without any obvious immediate complications. The patient received 1000 units of IV heparin. He already was on heparin in the emergency room and received a bolus. He also received 5 mg of verapamil as per protocol. I obtained right radial artery access with a micropuncture needle using Seldinger technique. A 6-Telugu sheath was placed, and under fluoroscopic guidance, catheters and wires were floated into the ascending aorta. The patient tolerated the procedure well without any obvious immediate complications. Total sedation time was 17 minutes. FINDINGS: 1. Hemodynamics: Left ventricular end-diastolic pressure is 15 mmHg. There is no significant gradient across the aortic valve. 2. Left ventriculogram: Left ventriculogram is not performed. 3. Angiographic data: a.Right coronary artery: Right coronary artery is a large dominant vessel and is free of significant stenosis. b.Left main coronary artery is a very short vessel, that divides into LAD, ramus intermedius, and a nondominant circumflex coronary artery. Ramus and circumflex are free of significant stenosis. LAD has a very tight stenosis in its very proximal part almost involving the ostium. At its worst, it seems to be a 90% stenosis. Proximal to the first diagonal, there is also a 40% to 50% stenosis noted. CONCLUSIONS: Severe single-vessel coronary artery disease involving the proximal portion of the LAD. I am going to review the angiographic data with Dr. Candelaria, the on-call fire safety director, and see if catheter-based intervention is feasible. If not, the patient might undergo bypass surgery with SAHU to LAD and venous or radial artery graft to the diagonal branch. I discussed these issues at length with the patient and his , and we will decide on further course of action. [id number] / CHRISTIANNEN: [id number] /
[2022-03-03] MEDS: NITROGLYCERIN OINT 1 INCH/GM PACKET TOPICAL SCH ×4 (00:14→23:32)
[2022-03-03 03:00] LABS: LDL Cholesterol,Calculated 102.4 mg/dL (0.0-131.0)
[2022-03-03 03:09] LABS: Hepatitis A Antibody IgM Nonreactive (Nonreactive); Hepatitis B Core IgM Nonreactive (Nonreactive); Hepatitis B Surface Antigen Nonreactive (Nonreactive); Hepatitis C IgG Antibody Nonreactive (Nonreactive)
[2022-03-03 04:22] LABS: Basophils % (A) 1 %; Eosinophils # (A) 0.2 k/uL (0-0.7); Eosinophils % (A) 3 %; HCT 35.8 % (39.0-53.0); HGB 12.4 gm/dL (13.0-17.5); Lymphocytes # (A) 3.2 k/uL (1.0-4.8); Lymphocytes % (A) 42 %; MCH 29.4 pg (25.0-35.0); MCHC 34.5 g/dL (31.0-37.0); MCV 85.4 fL (80.0-100.0); Mean Platelet Volume 7.9; Monocytes # (A) 0.6 k/uL (0-1.0); Monocytes % (A) 8 %; Neutrophils # (A) 3.3 k/uL (1.3-7.7); Neutrophils % (A) 44 %; Platelet Count 254 k/uL (150-450); WBC 7.5 k/uL (3.8-10.6)
[2022-03-03 05:06] LABS: African American GFR (CKD) >90 (>60 ml/min/1.73 sqM); Anion Gap 9 mmol/L; Blood Urea Nitrogen 12 mg/dL (9-20); Calcium 8.8 mg/dL (8.4-10.2); Carbon Dioxide 21 mmol/L (22-30); Chloride 109 mmol/L (98-107); Glucose 107 mg/dL (74-99); Non-African American GFR(CKD) >90 (>60 ml/min/1.73 sqM); Potassium 4.5 mmol/L (3.5-5.1); Sodium 139 mmol/L (137-145)
[2022-03-03] MEDS: SODIUM CHLORIDE 0.9% 1,000 ML IV SCH ×2 (05:57→17:57)
[2022-03-03] MEDS ORDERED: HEPARIN SODIUM,PORCINE 2,500 UNIT in SODIUM CHLORIDE 0.9% 250 ML IRRIGATION PRN (07:00)
[2022-03-03] MEDS ORDERED: HEPARIN SODIUM,PORCINE 10,000 UNIT in SODIUM CHLORIDE 0.9% 1,000 ML IRRIGATION PRN (07:00)
[2022-03-03] MEDS ORDERED: ASPIRIN 325 MG TAB PO SCH (09:00)
[2022-03-03] MEDS: lisinopriL 5 MG TAB PO SCH (09:16)
[2022-03-03] MEDS: ASPIRIN 81 MG PO SCH (09:16)
[2022-03-03] MEDS: METOPROLOL TARTRATE 25 MG TAB PO SCH ×2 (09:16→20:23)
[2022-03-03] MEDS: ATORVASTATIN 80 MG TAB PO SCH (09:16)
[2022-03-03] MEDS: MUPIROCIN 2% OINT 22 GM TUBE NASAL SCH ×2 (09:17→20:23)
[2022-03-03] MEDS: NICOTINE 21MG/24HR PATCH TRANSDERM SCH (09:17)
[2022-03-03] MEDS: ACETAMINOPHEN TAB 325 MG TAB PO PRN (09:23)
[2022-03-03 09:58] LABS: Chol/HDL Ratio 4.47 Ratio; LDL Cholesterol,Calculated 107.2 mg/dL (0.0-131.0)
--- NOTE | 2022-03-03 10:39 | P.HPIM ---
History of Present Illness H&P Date: 03/02/22 Chief Complaint: Chest pain Patient is a 46-year-old male with a known history of anxiety, currently every day smoker presents to ER with complaints of chest pain. Patient says that today morning when he was getting ready to go to work he felt like heartburn- like sensation in the mid retrosternal region. He also had pain on bilateral arms associated with nausea and mild shortness of breath. He felt fuzzy and diaphoretic. Pain was getting worse which made him to come to ER. Patient states that he has been having fluttering of the heart on and off for the past couple of weeks. Chest pain did improve by the time he come to ER. Denied any complaints of fever or chills. No cough or sputum production. No leg swelling. Denied any recent illnesses or sick contacts. Family history of coronary artery disease in his mother at age 48 and patient does smoke daily. EKG showed sinus rhythm with ST-T wave abnormalities Chest x-ray showed no acute cardiopulmonary process Laboratory data showed WBC 8.0 hemoglobin 14.0 and platelets 283 D-dimer is 0.37 Sodium 138 potassium 4.7 GERD with grade bicarb is 17 BUN 14 and creatinine 0.74 A1c 6.2 LDL 102 TSH 1.43 Troponin 0.077 and 0.212. Cardiology was consulted and patient underwent catheterization today. This showed severe single-vessel coronary disease involving the proximal portion of the LAD. Review of Systems Constitutional: Patient denies any fever or chills . No generalized weakness or weight loss. Abdomen: Patient denied nausea vomiting and diarrhea and abdominal pain. Cardiovascular: Patient denies any chest pain or short of breath no palpitations. Respiratory: patient denied any cough is from production. No shortness of breath Neurologic: Patient denied any numbness or tingling headache. Musculoskeletal: Patient denies any complaints of joint swelling or deformity. Skin: Negative Psychiatric: Negative Endocrine: No heat or cold intolerance. No recent weight gain. Genitourinary: No dysuria or hematuria. All other 14 point ROS negative except the above Past Medical History Past Medical History: No Reported History History of Any Multi-Drug Resistant Organisms: None Reported Past Surgical History: Appendectomy Past Psychological History: Anxiety Smoking Status: Current every day smoker Past Alcohol Use History: Occasional Past Drug Use History: None Reported - Past Family History Mother Family Medical History: Diabetes Mellitus, Myocardial Infarction (DC) (At age 48) Father Family Medical History: No Reported History Medications and Allergies Home Medications Medication Instructions Recorded Confirmed Type Rosuvastatin [Crestor] 20 mg PO DAILY 03/02/22 03/02/22 History Vortioxetine Hydrobromide 10 mg PO DAILY 03/02/22 03/02/22 History [Trintellix] Allergies Allergy/AdvReac Type Severity Reaction Status Date / Time No Known Allergies Allergy Verified 03/02/22 10:40 Physical Exam Vitals: Vital Signs Temp Pulse Pulse Resp BP BP Pulse Ox 03/02/22 13:54 67 16 139/73 97 03/02/22 13:24 77 16 148/74 98 03/02/22 13:09 67 16 143/70 97 03/02/22 12:54 68 16 143/68 98 03/02/22 12:42 82 16 150/82 97 03/02/22 11:00 82 18 152/94 95 03/02/22 10:30 72 22 140/90 97 03/02/22 10:00 64 22 137/87 96 03/02/22 09:30 77 22 129/83 97 03/02/22 09:00 82 18 156/91 97 03/02/22 08:16 97.7 F 85 20 163/99 98 Intake and Output 03/01/22 03/02/22 03/02/22 22:59 06:59 14:59 Intake Total 400 Balance 400 Intake: IV 400 Other: Weight 99.79 kg PHYSICAL EXAMINATION: Patient is lying in the bed comfortably, no acute distress, awake alert and oriented.. HEENT: Normocephalic. Neck is supple. Pupils reactive. Nostrils clear. Oral cavity is moist. Neck reveals no JVD, carotid bruits, or thyromegaly. CHEST EXAMINATION: Trachea is central. Symmetrical expansion. Lung guzman clear to auscultation and percussion. CARDIAC: Normal S1, S2 with no gallops. No murmurs ABDOMEN: Soft. Bowel sounds normal. No organomegaly. No abdominal bruits. Extremities: reveal no edema. No clubbing or cyanosis Neurologically awake, alert, oriented x3 with well-coordinated movements. No focal deficits noted Skin: No rash or skin lesions. Psychiatric: Coperative. Nonsuicidal Musculoskeletal: No joint swelling or deformity. Normal range of motion. Results CBC & Chem 7: 03/03/22 04:11 03/03/22 04:11 Labs: Abnormal Lab Results - Last 24 Hours (Table) 03/02/22 03/02/22 03/02/22 Range/Units 08:31 08:31 08:31 Hct 38.7 L (39.0-53.0) % Chloride 109 H (98-107) mmol/L Carbon Dioxide 17 L (22-30) mmol/L Glucose 123 H (74-99) mg/dL Troponin I 0.077 H* (0.000-0.034) ng/mL 03/02/22 Range/Units 11:13 Hct (39.0-53.0) % Chloride (98-107) mmol/L Carbon Dioxide (22-30) mmol/L Glucose (74-99) mg/dL Troponin I 0.212 H* (0.000-0.034) ng/mL Thrombosis Risk Factor Assmnt - DVT/VTE Prophylaxis DVT/VTE Prophylaxis: Pharmacologic Prophylaxis ordered Assessment and Plan Assessment: Acute non-ST elevated DC status post cardiac catheterization Severe single-vessel CAD involving the proximal LAD. Hyperlipidemia Hypertension Ongoing nicotine addiction Family history of premature coronary artery disease DVT prophylaxis Plan: Patient was started on heparin drip. Continue with telemetry monitoring. Status post cardiac catheterization which showed severe disease involving proximal LAD. Patient is being evaluated for coronary artery bypass graft. CT surgery was consulted and also pulmonary evaluation. Discussed the patient at bedside in detail. Prognosis is guarded stent. Time with Patient: Greater than 30
--- NOTE | 2022-03-03 12:03 | P.PN ---
Subjective Progress Note Date: 03/03/22 This is a 46-year-old white male, 15-hdfp-bweq smoking history, known history of dyslipidemia, strong family history of coronary artery disease, mother had DE in her 40s, patient presented to the ER with chest discomfort. Patient felt that the pain was left-sided, radiating to upper extremities, it was associated with slight shortness of breath and nausea/diaphoresis. Patient was seen by cardiology and felt to have non-ST elevation myocardial infarction. Patient underwent cardiac catheterization, he was found to have significant extensive LAD disease, patient was advised by cardiology to have myocardial revascularization, and this is scheduled to be done next Saturday. We were asked to see the patient on consultation for pulmonary clearance. Patient doesn't smoke, and he denies any symptoms of cough wheezing or shortness of breath. Never been diagnosed with COPD, not on any inhalers. Patient has been quite active able to walk a mile easily and able to climb a few flights of stairs without any difficulty. Again he had no previous documented pulmonary bedside PFT is pending The patient is seen today 03/03/2022 in follow-up on the selective care unit. He is currently sitting up in bed. Awake and alert in no acute distress. No complaints of chest pain, palpitations lightheadedness or dizziness. His maintaining good O2 saturations in the 90s on room air. FEV1 value found to be at 4.51 L which is 110% of predicted. Working with the incentive spirometer pulling 4000 ML's. Plan is for coronary revascularization surgery on 03/05/2022. Carotid Dopplers revealed 50-70% stenosis in the left internal carotid artery. Echocardiogram reveals preserved left ventricular systolic function with ejection fraction 50-55%. White count 7.5. Hemoglobin 12.4. Sodium 139. Potassium 4.5. Bicarb 21. BUN 12. Creatinine 0.76. He remains on a heparin drip. NicoDerm patch in place. Objective - Vital Signs Vital signs: Vital Signs Temp 97.8 F 03/03/22 09:07 Pulse 80 03/03/22 10:48 Resp 18 03/03/22 10:48 BP 119/63 03/03/22 09:07 Pulse Ox 97 03/03/22 09:07 FiO2 Intake & Output 03/02/22 03/03/22 03/03/22 18:59 06:59 18:59 Intake Total 1210 743.781 465 Output Total 650 Balance 560 743.781 465 Weight 99.79 kg Intake: IV 400 Intake, IV Titration 450 143.781 225 Amount Heparin Sod,Pork in 0.45% 143.781 NaCl 25,000 unit In 0.45 % NaCl 1 250ml.bag @ 10. 02 UNITS/KG/HR 9.999 mls/ hr IV .Q24H RICHA Rx#: [id number] Sodium Chloride 0.9% 1, 450 225 000 ml @ 75 mls/hr IV . [id number] RICHA Rx#:[id number] Oral 360 600 240 Output: Urine 650 Other: Voiding Method Toilet Toilet Urinal Urinal # Voids 1 2 - Exam GENERAL EXAM: Alert, active, very pleasant 46-year-old male, on room air, comfortable in no apparent distress. HEAD: Normocephalic. EYES: Normal reaction of pupils, equal size. NOSE: Clear with pink turbinates. THROAT: No erythema or exudates. NECK: No masses, no JVD. CHEST: No chest wall deformity. LUNGS: Equal air entry with no crackles, wheeze, rhonchi or dullness. CVS: S1 and S2 normal with no audible murmur, regular rhythm. ABDOMEN: No hepatosplenomegaly, normal bowel sounds, no guarding or rigidity. SPINE: No scoliosis or deformity SKIN: No rashes CENTRAL NERVOUS SYSTEM: No focal deficits, tone is normal in all 4 extremities. EXTREMITIES: There is no peripheral edema. No clubbing, no cyanosis. Peripheral pulses are intact. - Labs CBC & Chem 7: 03/03/22 04:11 03/03/22 04:11 Labs: Abnormal Lab Results - Last 24 Hours (Table) 03/02/22 03/02/22 03/02/22 Range/Units 08:31 08:31 11:13 RBC (4.30-5.90) m/uL Hgb (13.0-17.5) gm/dL Hct (39.0-53.0) % APTT (22.0-30.0) sec Chloride (98-107) mmol/L Carbon Dioxide (22-30) mmol/L Glucose (74-99) mg/dL Hemoglobin A1c 6.2 H (0.0-6.0) % Troponin I 0.212 H* (0.000-0.034) ng/mL Triglycerides 307.00 H (0.00-149.00) mg/dL Cholesterol 201.00 H (0.00-200.00) mg/dL VLDL Cholesterol, Calc 61.40 H (5.00-40.00) mg/dL HDL Cholesterol 37.20 L (40.00-60.00) mg/dL 03/03/22 03/03/22 03/03/22 Range/Units 04:11 04:11 04:11 RBC 4.20 L (4.30-5.90) m/uL Hgb 12.4 L (13.0-17.5) gm/dL Hct 35.8 L (39.0-53.0) % APTT (22.0-30.0) sec Chloride 109 H (98-107) mmol/L Carbon Dioxide 21 L (22-30) mmol/L Glucose 107 H (74-99) mg/dL Hemoglobin A1c (0.0-6.0) % Troponin I (0.000-0.034) ng/mL Triglycerides (0.00-149.00) mg/dL Cholesterol (0.00-200.00) mg/dL VLDL Cholesterol, Calc (5.00-40.00) mg/dL HDL Cholesterol 37.60 L (40.00-60.00) mg/dL 03/03/22 03/03/22 Range/Units 04:11 04:11 RBC (4.30-5.90) m/uL Hgb (13.0-17.5) gm/dL Hct (39.0-53.0) % APTT 31.0 H (22.0-30.0) sec Chloride (98-107) mmol/L Carbon Dioxide (22-30) mmol/L Glucose (74-99) mg/dL Hemoglobin A1c (0.0-6.0) % Troponin I 0.293 H* (0.000-0.034) ng/mL Triglycerides (0.00-149.00) mg/dL Cholesterol (0.00-200.00) mg/dL VLDL Cholesterol, Calc (5.00-40.00) mg/dL HDL Cholesterol (40.00-60.00) mg/dL Microbiology - Last 24 Hours (Table) 03/02/22 16:30 Nasal Screen MRSA/MSSA - Preliminary Nasal Swab Assessment and Plan Assessment: Coronary artery disease with a 90% stenosis to his proximal left anterior descending coronary artery Non-ST elevated myocardial infarction this admission Hypertension Hyperlipidemia History of depression Chronic ongoing tobacco dependence smokes 1 pack of cigarettes per day Plan: The patient was seen and evaluated Pulmonary function testing, labs and medications reviewed Cleared for surgery from the pulmonary standpoint Educated regarding the importance of complete smoking cessation NicoDerm patch in place Educated regarding the use of the incentive spirometer Continue heparin drip for now Plan is for surgery 03/05/2022 We will continue to follow and make further recommendations based on his clinical status I have personally seen and examined the patient, performed the documentation and the assessment and plan as written. Number of minutes spent on the visit: 10.
[2022-03-03] MEDS: HEPARIN SOD,PORK IN 0.45% NACL 25,000 UNIT in 0.45% NACL 1 250ML.BAG IV SCH (12:21)
--- NOTE | 2022-03-03 12:38 | P.PN ---
Subjective Progress Note Date: 03/03/22 Principal diagnosis: This is a 46-year-old gentleman who follows on an outpatient basis with Dr. Whitten for his primary care service. He has a past medical history significant for hyperlipidemia, hypertension, depression, chronic ongoing tobacco dependence and a family history of early onset coronary artery disease with his mother having a myocardial infarction at age 48. The patient also has a history of colon polyps and has recently been having episodes of diarrhea with occasional bloody stools 1-2 times per month. He presented to the emergency department here at [facility] today with complaints of chest pain associated with shortness of breath, nausea and pain radiating down his bilateral upper extremities. He reports he felt fairly fuzzy in his head during the episode of chest pain. He denies any recent fever, chills, vomiting, palpitations, dizziness, near syncope, syncope, orthopnea, headache, or cough. A 12-lead EKG was completed in the emergency department which showed normal sinus rhythm with nonspecific STT wave abnormalities with a heart rate of 84 BPM. A chest x-ray was completed which showed no acute cardiopulmonary process. Initial laboratory results showed a WBC count of 8.0, hemoglobin 14.0, hematocrit 38.7, platelets 283, PT 10.0, INR 0.9, PTT 22.3, d-dimer 0.37, sodium 138, potassium 4.7, chloride 109, CO2 17, BUN 14, creatinine 0.74, glucose 123, calcium 9.7, magnesium 1.9, initial troponin was slightly elevated at 0.77 and a repeat troponin was elevated at 0.212 ruling him in for a non-ST elevated myocardial infarction. Due to the patient's presenting symptoms, family history of early onset coronary artery disease and his elevated troponins a consult was placed to Dr. valladares from [facility]. The patient subsequently underwent a heart catheterization which demonstrated a 90% stenosis to his pr oximal left anterior descending coronary artery. The patient's transthoracic 2- D echocardiogram report remains pending. Due to the findings on the heart catheterization a consult was placed to Dr. Angel Colby from cardiothoracic surgery for further treatment recommendations including myocardial rev ascularization surgery. The patient was seen in follow-up today 03/03/2022 at his bedside on the cardiac stepdown unit. Currently sitting up on the bedside edge, is awake, alert, oriented 3 and is in no acute apparent distress. Denies any further complaints of shortness of breath, chest pain or chest pressure. At this time he is complaining of a headache which he is relating to the nitroglycerin patch. A transthoracic 2-D echocardiogram was completed just today which showed his left ventricular ejection fraction to be estimated at 50-55%, no mitral valve stenosis with mild mitral valve regurgitation, no aortic valve stenosis or regurgitation, mild tricuspid valve regurgitation, trace pulmonic regurgitation and no pericardial effusion. As part of his preoperative workup a carotid du plex study was completed which demonstrated elevated velocity in the left internal carotid artery suggestive of a 50-70% stenosis. A bedside FEV1 was completed today which showed a predicted value of 110% with a base volume of 4.51. A 5 m walk test was completed with the patient with time 1: 2.53 seconds, time 2: 2.32 seconds, time 3: 2.27 seconds. Preoperative teaching has been reinforced with the patient and his questions were answered. He is tentatively scheduled for off-pump myocardial revascularization surgery with left internal mammary artery, exclusion of left atrial appendage and intraoperative transesophageal echocardiogram to be performed by Dr. Angel Colby on 03/05/2022. Objective - Vital Signs Vital signs: Vital Signs Temp 97.4 F L 03/03/22 03:24 Pulse 63 03/03/22 03:24 Resp 14 03/03/22 03:24 BP 107/71 03/03/22 03:24 Pulse Ox 97 03/03/22 03:24 FiO2 Intake & Output 03/02/22 03/03/22 03/03/22 18:59 06:59 18:59 Intake Total 1210 743.781 240 Output Total 650 Balance 560 743.781 240 Weight 99.79 kg Intake: IV 400 Intake, IV Titration 450 143.781 Amount Heparin Sod,Pork in 0.45% 143.781 NaCl 25,000 unit In 0.45 % NaCl 1 250ml.bag @ 10. 02 UNITS/KG/HR 9.999 mls/ hr IV .Q24H RICHA Rx#: [id number] Sodium Chloride 0.9% 1, 450 000 ml @ 75 mls/hr IV . [id number] RICHA Rx#:[id number] Oral 360 600 240 Output: Urine 650 Other: Voiding Method Toilet Urinal # Voids 1 2 - Exam CONSTITUTIONAL: Sitting up to the bedside edge on the cardiac stepdown unit, appears comfortable, cooperative, no apparent acute distress. HEENT: Neck is supple, no JVD, no lymphadenopathy. RESPIRATORY: Lungs sounds essentially clear throughout. Respirations are symmetrical and nonlabored. Currently on room air with oxygen saturations 97%. Able to achieve 4000 mL on his incentive spirometry. Strong cough. CARDIOVASCULAR: Regular rhythm and rate. S1 and S2 present, negative for S3, gallop or murmur. Palpable peripheral pulses bilaterally. GASTROINTESTINAL: Abdomen soft, nontender, nondistended. Active bowel sounds present 4 quadrants. Tolerating diet. Passing flatus. No guarding or rigidit y. GENITOURINARY: Continues to void. INTEGUMENTARY: Skin is warm and dry with no evidence of clubbing or cyanosis. NEUROLOGIC: Cranial nerves II through XII intact. No focal deficits. MUSKULOSKELETAL: Able to move all extremities, strength equal bilaterally. PSYCHIATRIC: Alert and oriented to person place and time, appropriate affect, intact judgment and insight. - Allied health notes Allied health notes reviewed: nursing - Labs CBC & Chem 7: 03/03/22 04:11 03/03/22 04:11 Labs: Abnormal Lab Results - Last 24 Hours (Table) 03/02/22 03/02/22 03/02/22 Range/Units 08:31 08:31 08:31 RBC (4.30-5.90) m/uL Hgb (13.0-17.5) gm/dL Hct (39.0-53.0) % APTT (22.0-30.0) sec Chloride (98-107) mmol/L Carbon Dioxide (22-30) mmol/L Glucose (74-99) mg/dL Hemoglobin A1c 6.2 H (0.0-6.0) % Troponin I 0.077 H* (0.000-0.034) ng/mL Triglycerides 307.00 H (0.00-149.00) mg/dL Cholesterol 201.00 H (0.00-200.00) mg/dL VLDL Cholesterol, Calc 61.40 H (5.00-40.00) mg/dL HDL Cholesterol 37.20 L (40.00-60.00) mg/dL 03/02/22 03/03/22 03/03/22 Range/Units 11:13 04:11 04:11 RBC 4.20 L (4.30-5.90) m/uL Hgb 12.4 L (13.0-17.5) gm/dL Hct 35.8 L (39.0-53.0) % APTT (22.0-30.0) sec Chloride 109 H (98-107) mmol/L Carbon Dioxide 21 L (22-30) mmol/L Glucose 107 H (74-99) mg/dL Hemoglobin A1c (0.0-6.0) % Troponin I 0.212 H* (0.000-0.034) ng/mL Triglycerides (0.00-149.00) mg/dL Cholesterol (0.00-200.00) mg/dL VLDL Cholesterol, Calc (5.00-40.00) mg/dL HDL Cholesterol (40.00-60.00) mg/dL 03/03/22 03/03/22 Range/Units 04:11 04:11 RBC (4.30-5.90) m/uL Hgb (13.0-17.5) gm/dL Hct (39.0-53.0) % APTT 31.0 H (22.0-30.0) sec Chloride (98-107) mmol/L Carbon Dioxide (22-30) mmol/L Glucose (74-99) mg/dL Hemoglobin A1c (0.0-6.0) % Troponin I 0.293 H* (0.000-0.034) ng/mL Triglycerides (0.00-149.00) mg/dL Cholesterol (0.00-200.00) mg/dL VLDL Cholesterol, Calc (5.00-40.00) mg/dL HDL Cholesterol (40.00-60.00) mg/dL Microbiology - Last 24 Hours (Table) 03/02/22 16:30 Nasal Screen MRSA/MSSA - Preliminary Nasal Swab - Imaging and Cardiology Transthoracic 2-D echo cardiogram results reviewed. Carotid duplex results reviewed. Assessment and Plan Assessment: 1. Coronary artery disease with a 90% stenosis to his proximal left anterior descending coronary artery 2. Non-ST elevated myocardial infarction this admission 3. Hypertension 4. Hyperlipidemia 5. History of depression 6. Chronic ongoing tobacco dependence smokes 1 pack of cigarettes per day 7. Frequent episodes of diarrhea with occasional bloody stools 1-2 times per month 8. Left internal carotid artery stenosis 50-70% per carotid duplex study Plan: 1. Continue preoperative teaching. 2. The patient is tentatively scheduled for off-pump myocardial revascularization surgery with left internal mammary artery, exclusion of left atrial appendage and intraoperative transesophageal echocardiogram for 03/05/2022 to be performed by Dr. Angel Colby. 3. Heparin drip management per cardiology recommendations. 4. 5 minute walk test was completed with the patient time 1: 2.53 seconds, time 2: 2.32 seconds, time 3: 2.27 seconds. 5. An STS risk score was calculated and discussed with the patient. 6. Medical management and other comorbidities per primary care service. 7. Continue optimize medical management with aspirin, statin and beta shahid. 8. More recommendations to follow based on patient's clinical course. Time with Patient: Greater than 30
--- NOTE | 2022-03-03 22:08 | PN ---
PROGRESS NOTE SUBJECTIVE: This is a 46-year-old gentleman, who is admitted to hospital with acute laj-BG-rltenxs elevation [place], underwent cardiac catheterization and was found to have a focal stenosis involving ostial LAD. He was evaluated by the school vocational educator and also by the cardiothoracic surgeon. He was thought not to be an optimal candidate for catheter- based revascularization; hence, the patient will undergo bypass surgery on Saturday. He is doing well and is free of symptoms. OBJECTIVE: VITAL SIGNS: Heart rate is 80 beats per minute, blood pressure is 119/62, respiratory rate is 18. CHEST: Reveals good air entry bilaterally. HEART: Reveals first and second heart sounds. No gallop. No murmur. ABDOMEN: Soft. EXTREMITIES: Did not reveal any edema. Peripheral pulses are felt. LABORATORY DATA: Show a hemoglobin of 12.4, platelet count is 254. Potassium is 4.5, creatinine is 0.7. An echocardiogram on this admission revealed normal LV systolic function. A carotid duplex study showed 50% to 75% stenosis involving the left internal carotid artery. CURRENT MEDICATIONS: Include: 1. Aspirin. 2. Lipitor. 3. IV heparin. 4. Lisinopril. 5. Nitroglycerin paste. 6. Metoprolol. ASSESSMENT: Severe proximal left anterior descending stenosis. PLAN: The patient will undergo bypass surgery on Saturday. He will continue with the optimal medical therapy that he is on at the moment. MMODL / CHRISTIANNEN: [id number] /
[2022-03-04] MEDS: HEPARIN SOD,PORK IN 0.45% NACL 25,000 UNIT in 0.45% NACL 1 250ML.BAG IV SCH ×2 (02:52→18:25)
[2022-03-04] MEDS: SODIUM CHLORIDE 0.9% 1,000 ML IV SCH ×2 (06:50→18:23)
--- NOTE | 2022-03-04 08:43 | P.PN ---
Subjective Progress Note Date: 03/04/22 Principal diagnosis: This is a 46-year-old gentleman who follows on an outpatient basis with Dr. Whitten for his primary care service. He has a past medical history significant for hyperlipidemia, hypertension, depression, chronic ongoing tobacco dependence and a family history of early onset coronary artery disease with his mother having a myocardial infarction at age 48. The patient also has a history of colon polyps and has recently been having episodes of diarrhea with occasional bloody stools 1-2 times per month. He presented to the emergency department here at [facility] today with complaints of chest pain associated with shortness of breath, nausea and pain radiating down his bilateral upper extremities. He reports he felt fairly fuzzy in his head during the episode of chest pain. He denies any recent fever, chills, vomiting, palpitations, dizziness, near syncope, syncope, orthopnea, headache, or cough. A 12-lead EKG was completed in the emergency department which showed normal sinus rhythm with nonspecific STT wave abnormalities with a heart rate of 84 BPM. A chest x-ray was completed which showed no acute cardiopulmonary process. Initial laboratory results showed a WBC count of 8.0, hemoglobin 14.0, hematocrit 38.7, platelets 283, PT 10.0, INR 0.9, PTT 22.3, d-dimer 0.37, sodium 138, potassium 4.7, chloride 109, CO2 17, BUN 14, creatinine 0.74, glucose 123, calcium 9.7, magnesium 1.9, initial troponin was slightly elevated at 0.77 and a repeat troponin was elevated at 0.212 ruling him in for a non-ST elevated myocardial infarction. Due to the patient's presenting symptoms, family history of early onset coronary artery disease and his elevated troponins a consult was placed to Dr. valladares from [facility]. The patient subsequently underwent a heart catheterization which demonstrated a 90% stenosis to his pr oximal left anterior descending coronary artery. The patient's transthoracic 2- D echocardiogram report remains pending. Due to the findings on the heart catheterization a consult was placed to Dr. Angel Colby from cardiothoracic surgery for further treatment recommendations including myocardial rev ascularization surgery. The patient is seen in follow-up today 03/04/2022 at his bedside on the cardiac stepdown unit. He denies any complaints of shortness of breath, or chest pain/pressure. Currently he is laying in bed, is awake, alert, oriented 3 and is in no acute apparent distress. Preoperative teaching reinforced regarding myocardial revascularization surgery and his questions were answered. He is scheduled for off-pump myocardial revascularization surgery with left internal mammary artery, exclusion of left atrial appendage and intraoperative transesophageal echocardiogram tomorrow 03/05/2022 to be performed by Dr. Angel Colby. Oxygen saturation are 95% on room air and he is achieving 4000 mL on his incentive spirometry with encouragement. His troponin this morning is trending down at 0.193. Remote telemetry is showing normal sinus rhythm heart rate 69 BPM. A bedside FEV1 was completed yesterday which showed a predicted value of 110% with a baseball of 4.51 L. He has been afebrile the last 24 hours. Objective - Vital Signs Vital signs: Vital Signs Temp 97.5 F L 03/04/22 02:56 Pulse 57 L 03/04/22 02:56 Resp 16 03/04/22 02:56 BP 112/65 03/04/22 02:56 Pulse Ox 93 L 03/04/22 02:56 FiO2 Intake & Output 03/03/22 03/04/22 03/04/22 18:59 06:59 18:59 Intake Total 1176.134 5522.336 Balance 4800.957 8799.336 Weight 108 kg Intake: Intake, IV Titration 123.309 1308.336 Amount Heparin Sod,Pork in 0.45% 108.883 247.336 NaCl 25,000 unit In 0.45 % NaCl 1 250ml.bag @ 10. 02 UNITS/KG/HR 9.999 mls/ hr IV .Q24H RICHA Rx#: [id number] Sodium Chloride 0.9% 1, 825 900 000 ml @ 75 mls/hr IV . [id number] RICHA Rx#:[id number] Oral 600 500 Other: Voiding Method Toilet Toilet Urinal Urinal # Voids 2 - Exam CONSTITUTIONAL: Sitting up in bed on the cardiac stepdown unit, appears comfortable, cooperative, no apparent acute distress. HEENT: Neck is supple, no JVD, no lymphadenopathy. RESPIRATORY: Lungs sounds essentially clear throughout. Respirations are symmetrical and nonlabored. Currently on room air with oxygen saturations 95%. Able to achieve 4000 mL on his incentive spirometry. Strong cough. CARDIOVASCULAR: Regular rhythm and rate. S1 and S2 present, negative for S3, gallop or murmur. Palpable peripheral pulses bilaterally. Remote telemetry showing normal sinus rhythm heart rate 69 BPM. GASTROINTESTINAL: Abdomen soft, nontender, nondistended. Active bowel sounds present 4 quadrants. Tolerating diet. Passing flatus. No guarding or rigidity. GENITOURINARY: Continues to void. INTEGUMENTARY: Skin is warm and dry with no evidence of clubbing or cyanosis. NEUROLOGIC: Cranial nerves II through XII intact. No focal deficits. MUSKULOSKELETAL: Able to move all extremities, strength equal bilaterally. PSYCHIATRIC: Alert and oriented to person place and time, appropriate affect, intact judgment and insight. - Allied health notes Allied health notes reviewed: nursing - Labs CBC & Chem 7: 03/03/22 04:11 03/03/22 04:11 Labs: Abnormal Lab Results - Last 24 Hours (Table) 03/03/22 03/03/22 03/03/22 Range/Units 04:11 11:20 18:37 APTT 42.7 H 49.7 H (22.0-30.0) sec Troponin I (0.000-0.034) ng/mL HDL Cholesterol 37.60 L (40.00-60.00) mg/dL Crossmatch 03/04/22 03/04/22 03/04/22 Range/Units 05:50 05:50 05:50 APTT 58.1 H (22.0-30.0) sec Troponin I 0.193 H* (0.000-0.034) ng/mL HDL Cholesterol (40.00-60.00) mg/dL Crossmatch See Detail Microbiology - Last 24 Hours (Table) 03/02/22 16:30 Nasal Screen MRSA/MSSA - Final Nasal Swab Assessment and Plan Assessment: 1. Coronary artery disease with a 90% stenosis to his proximal left anterior descending coronary artery 2. Non-ST elevated myocardial infarction this admission 3. Hypertension 4. Hyperlipidemia 5. History of depression 6. Chronic ongoing tobacco dependence smokes 1 pack of cigarettes per day 7. Frequent episodes of diarrhea with occasional bloody stools 1-2 times per month 8. Left internal carotid artery stenosis 50-70% per carotid duplex study Plan: 1. Continue to reinforce preoperative teaching. 2. The patient is scheduled for off-pump myocardial revascularization surgery with left internal mammary artery, exclusion of left atrial appendage and intraoperative transesophageal echocardiogram for 03/05/2022 to be performed by Dr. Angel Colby. 3. Heparin drip management per cardiology recommendations. 4. Medical management and other comorbidities per primary care service. 5. Continue optimize medical management with aspirin, statin and beta shahid. 6. Nothing by mouth after midnight. 7. More recommendations to follow based on patient's clinical course. Time with Patient: Greater than 30
[2022-03-04] MEDS: NITROGLYCERIN OINT 1 INCH/GM PACKET TOPICAL SCH ×2 (08:51→17:48)
[2022-03-04] MEDS: MUPIROCIN 2% OINT 22 GM TUBE NASAL SCH ×2 (08:51→21:18)
[2022-03-04] MEDS: lisinopriL 5 MG TAB PO SCH (08:51)
[2022-03-04] MEDS: METOPROLOL TARTRATE 25 MG TAB PO SCH ×2 (08:51→21:18)
[2022-03-04] MEDS: ATORVASTATIN 80 MG TAB PO SCH (08:51)
[2022-03-04] MEDS: NICOTINE 21MG/24HR PATCH TRANSDERM SCH (08:51)
[2022-03-04] MEDS: ASPIRIN 81 MG PO SCH (08:51)
[2022-03-04] MEDS: VORTIOXETINE HYDROBROMIDE 10 MG TABLET PO SCH (09:56)
[2022-03-04] MEDS: ACETAMINOPHEN TAB 325 MG TAB PO PRN (11:55)
--- NOTE | 2022-03-04 14:07 | P.PN ---
Subjective Progress Note Date: 03/04/22 Patient seen today resting comfortably in bed with his at the bedside. He is no signs of acute distress. At this time he denies chest pain and increase shortness of breath. Patient continues on heparin drip. Patient is on aspirin, atorvastatin, lisinopril, metoprolol. He remains sinus rhythm on the monitor Patient is awaiting to undergo open-heart tomorrow. Objective - Vital Signs Vital signs: Vital Signs Temp 98.0 F 03/04/22 08:49 Pulse 60 03/04/22 11:51 Resp 18 03/04/22 11:51 BP 115/69 03/04/22 11:51 Pulse Ox 96 03/04/22 11:51 FiO2 Intake & Output 03/03/22 03/04/22 03/04/22 18:59 06:59 18:59 Intake Total 2900.508 4357.336 Balance 0350.941 3183.336 Weight 108 kg Intake: Intake, IV Titration 809.176 4879.336 Amount Heparin Sod,Pork in 0.45% 108.883 247.336 NaCl 25,000 unit In 0.45 % NaCl 1 250ml.bag @ 10. 02 UNITS/KG/HR 9.999 mls/ hr IV .Q24H RICHA Rx#: [id number] Sodium Chloride 0.9% 1, 825 900 000 ml @ 75 mls/hr IV . [id number] R[facility] Rx#:[id number] Oral 600 500 Other: Voiding Method Toilet Toilet Toilet Urinal Urinal Urinal # Voids 2 - Exam PHYSICAL EXAM: VITAL SIGNS: Reviewed. GENERAL: Well-developed in no acute distress. HEENT: Head is normocephalic. Pupils are equal, round. Sclerae anicteric. Mucous membranes of the mouth are moist. NECK: Supple. No JVD or thyromegaly RESPIRATORY: Respirations even and unlabored. Lungs diminished to auscultation bilaterally. CARDIO: Regular rate and rhythm. S1 and S2 heard. No murmur or gallops. EXTREMITIES: Normal range of motion. No clubbing or cyanosis. Peripheral pulses intact. Negative for bilateral lower extremity edema NEURO: Orientated to person, time, mood is appropriate - Labs CBC & Chem 7: 03/03/22 04:11 03/03/22 04:11 Labs: Abnormal Lab Results - Last 24 Hours (Table) 03/03/22 03/04/22 03/04/22 Range/Units 18:37 05:50 05:50 APTT 49.7 H 58.1 H (22.0-30.0) sec Troponin I (0.000-0.034) ng/mL Crossmatch See Detail 03/04/22 Range/Units 05:50 APTT (22.0-30.0) sec Troponin I 0.193 H* (0.000-0.034) ng/mL Crossmatch Microbiology - Last 24 Hours (Table) 03/02/22 16:30 Nasal Screen MRSA/MSSA - Final Nasal Swab Assessment and Plan Assessment: Severe proximal left anterior descending stenosis Plan: Patient is not a candidate for catheter revascularization Patient will undergo bypass surgery on Saturday. Continue with all current cardiac medications Continue with telemetry monitoring Further recommendations based on clinical course The above impression and plan of care have been discussed and directed by the signing physician. Nathalie Morales, nurse practitioner, acting as scribe for signing physician.
--- NOTE | 2022-03-04 14:14 | P.PN ---
Subjective Progress Note Date: 03/04/22 Principal diagnosis: Coronary artery disease, scheduled for CABG in a.m. This is a 46-year-old white male, 32-mnbr-aihr smoking history, known history of dyslipidemia, strong family history of coronary artery disease, mother had MO in her 40s, patient presented to the ER with chest discomfort. Patient felt that the pain was left-sided, radiating to upper extremities, it was associated with slight shortness of breath and nausea/diaphoresis. Patient was seen by cardiology and felt to have non-ST elevation myocardial infarction. Patient underwent cardiac catheterization, he was found to have significant extensive LAD disease, patient was advised by cardiology to have myocardial revascularization, and this is scheduled to be done next Saturday. We were asked to see the patient on consultation for pulmonary clearance. Patient doesn't smoke, and he denies any symptoms of cough wheezing or shortness of breath. Never been diagnosed with COPD, not on any inhalers. Patient has been quite active able to walk a mile easily and able to climb a few flights of stairs without any difficulty. Again he had no previous documented pulmonary bedside PFT is pending Reevaluated today on 03/06/22, patient is doing great, asymptomatic, in no distress, scheduled for myocardial revascularization in a.m. Objective - Vital Signs Vital signs: Vital Signs Temp 98.0 F 03/04/22 08:49 Pulse 60 03/04/22 11:51 Resp 18 03/04/22 11:51 BP 115/69 03/04/22 11:51 Pulse Ox 96 03/04/22 11:51 FiO2 Intake & Output 03/03/22 03/04/22 03/04/22 18:59 06:59 18:59 Intake Total 0937.966 3535.336 Balance 6027.609 1022.336 Weight 108 kg Intake: Intake, IV Titration 482.759 2036.336 Amount Heparin Sod,Pork in 0.45% 108.883 247.336 NaCl 25,000 unit In 0.45 % NaCl 1 250ml.bag @ 10. 02 UNITS/KG/HR 9.999 mls/ hr IV .Q24H RIC[facility] Rx#: [id number] Sodium Chloride 0.9% 1, 825 900 000 ml @ 75 mls/hr IV . [id number] RIC[facility] Rx#:[id number] Oral 600 500 Other: Voiding Method Toilet Toilet Toilet Urinal Urinal Urinal # Voids 2 - Exam Physical Exam: Revealed a 46-year-old white male in no distress very pleasant. Head: Atraumatic, normocephalic. HEENT:[Neck is supple.] [No neck masses.] [No thyromegaly.] [No JVD.] Chest: [Clear throughout, no crackles, no rhonchi, no wheezes.] Cardiac Exam: [Normal S1 and S2, no S3 gallop, no murmur.] Abdomen: [Soft, nontender, no megaly, no rebound, no guarding, normal bowel sounds.] Extremities: [No clubbing, no edema, no cyanosis.] Neurological Exam: [No focal neurologic deficit.] Alert oriented 3 Psychiatric: Normal mood, affect and normal mental status examination. Skin: No rashes. - Labs CBC & Chem 7: 03/03/22 04:11 03/03/22 04:11 Labs: Abnormal Lab Results - Last 24 Hours (Table) 03/03/22 03/04/22 03/04/22 Range/Units 18:37 05:50 05:50 APTT 49.7 H 58.1 H (22.0-30.0) sec Troponin I (0.000-0.034) ng/mL Crossmatch See Detail 03/04/22 Range/Units 05:50 APTT (22.0-30.0) sec Troponin I 0.193 H* (0.000-0.034) ng/mL Crossmatch Microbiology - Last 24 Hours (Table) 03/02/22 16:30 Nasal Screen MRSA/MSSA - Final Nasal Swab Assessment and Plan Assessment: Impression: Coronary artery disease, patient is scheduled for myocardial revascularization in a.m. Tobacco dependence syndrome, 95-[id number]-[id number] smoking history but the patient has no symptoms to suggest COPD Family history of premature coronary artery disease Dyslipidemia Recommendation: Cleared for surgery, considered low operative risk Continue Incentive spirometry. Counseled regarding smoking cessation We will continue to follow Time with Patient: Less than 30
[2022-03-04] MEDS: SODIUM CHLORIDE 0.9% 1,000 ML in EMPTY BAG 1 BAG IV SCH (21:32)
[2022-03-05] MEDS: NITROGLYCERIN OINT 1 INCH/GM PACKET TOPICAL SCH (00:01)
[2022-03-05] MEDS: SODIUM CHLORIDE 0.9% 1,000 ML in EMPTY BAG 1 BAG IV SCH ×3 (00:02→13:41)
[2022-03-05] MEDS ORDERED: MANNITOL 25% 12.5 GM/50 ML VIAL IV ONE ×2 (05:00)
[2022-03-05] MEDS ORDERED: HEPARIN SODIUM,PORCINE 5,000 UNIT in SODIUM CHLORIDE 0.9% 500 ML 500 ML IV ONE (05:00)
[2022-03-05] MEDS ORDERED: METOPROLOL TARTRATE 12.5 MG TAB PO ONE (05:00)
[2022-03-05] MEDS ORDERED: CHLORHEXIDINE GLUCONATE 15 ML CUP MUCOUS MEM ONE (05:00)
[2022-03-05] MEDS ORDERED: ALBUMIN HUMAN 25% 50 ML in EMPTY BAG 1 BAG IVPB ONE (05:00)
[2022-03-05] MEDS ORDERED: CLEVIDIPINE BUTYRATE 25 MG in EMPTY BAG 1 BAG IV ONE (05:00)
[2022-03-05] MEDS ORDERED: MAGNESIUM SULFATE 16.24 MEQ in EMPTY SYRINGE 1 SYR IV ONE (05:00)
[2022-03-05] MEDS ORDERED: TRANEXAMIC ACID 2,000 MG in SODIUM CHLORIDE 0.9% 80 ML IV ONE ×4 (05:00)
[2022-03-05] MEDS ORDERED: ATORVASTATIN 10 MG TAB PO ONE (05:00)
[2022-03-05] MEDS ORDERED: ELECTROLYTE-A SOLUTION 1,000 ML with POTASSIUM CHLORIDE 40 MEQ, MAGNESIUM SULFATE 16 ME... IV ONE ×5 (05:00)
[2022-03-05] MEDS ORDERED: HEPARIN SODIUM 1,000 UN/ML (10ML VL) IV ONE (05:00)
[2022-03-05] MEDS ORDERED: PROTAMINE SULFATE 10 MG/ML 25 ML VIAL IV ONE (05:00)
[2022-03-05] MEDS ORDERED: NITROGLYCERIN-D5W PMX 25 MG/250 ML BTL IV ONE (05:00)
[2022-03-05] MEDS ORDERED: INSULIN REGULAR 100 UNIT in SODIUM CHLORIDE 0.9% 100 ML IV ONE (05:00)
[2022-03-05] MEDS ORDERED: PHENYLEPHRINE 40 MG in SODIUM CHLORIDE 0.9% 250 ML IV ONE (05:00)
[2022-03-05] MEDS ORDERED: ASPIRIN 325 MG TAB PO ONE (05:00)
[2022-03-05] MEDS ORDERED: ALBUMIN HUMAN 5% 500 ML in EMPTY BAG 1 BAG IVPB ONE ×6 (05:00)
[2022-03-05] MEDS ORDERED: PHENYLEPHRINE 10 MG/ML VIAL IV ONE (05:00)
[2022-03-05] MEDS ORDERED: SODIUM BICARB 8.4% 50 ML SYR (1 MEQ/ML) IV ONE (05:00)
[2022-03-05] MEDS ORDERED: ceFAZolin 1,000 MG in SODIUM CHLORIDE 0.9% IRRIGATIO 1,000 ML IRRIGATION ONE (05:00)
[2022-03-05] MEDS ORDERED: PROTAMINE SULFATE 250 MG in EMPTY BAG 1 BAG IV ONE (05:00)
[2022-03-05] MEDS ORDERED: NITROGLYCERIN-D5W PMX 50 MG in DEXTROSE/WATER 1 250ML.BAG IV ONE (05:00)
[2022-03-05] MEDS ORDERED: NOREPINEPHRINE 4 MG in SODIUM CHLORIDE 0.9% 250 ML IV ONE (05:00)
[2022-03-05] MEDS ORDERED: PAPAVERINE 360 MG in SODIUM CHLORIDE 0.9% 90 ML IV ONE ×2 (05:00→09:26)
[2022-03-05] MEDS ORDERED: ELECTROLYTE-A SOLUTION 1,000 ML with POTASSIUM CHLORIDE 100 MEQ, MAGNESIUM SULFATE 16 M... IV ONE ×5 (05:00)
[2022-03-05] MEDS ORDERED: CALCIUM CHLORIDE 100 MG/ML 10 ML SYRINGE IVP ONE (05:00)
[2022-03-05 06:30] LABS: Glucose,Whole Blood 109 mg/dL (70-110)
[2022-03-05] MEDS ORDERED: LACTATED RINGERS 1,000 ML IV ONE (06:35)
[2022-03-05] MEDS ORDERED: HEPARIN SODIUM,PORCINE 10,000 UNIT/ML 1 ML VIAL ONE (07:30)
[2022-03-05] MEDS ORDERED: SODIUM CHLORIDE 0.9% 100 ML BAG ONE (07:30)
[2022-03-05] MEDS ORDERED: PROPOFOL 10 MG/ML 20 ML VIAL IV ONE (07:30)
[2022-03-05] MEDS ORDERED: SODIUM BICARB 8.4% 50 ML SYR (1 MEQ/ML) ONE (07:30)
[2022-03-05] MEDS ORDERED: ALBUMIN HUMAN 5% (25gm) 500 ML VIAL IVPB ONE (07:30)
[2022-03-05] MEDS ORDERED: MIDAZOLAM HCL 10 MG/10 ML VIAL ONE (07:30)
[2022-03-05] MEDS ORDERED: LABETALOL 5 MG/ML VIAL MDV ONE (07:30)
[2022-03-05] MEDS ORDERED: NITROGLYCERIN-D5W PMX 50 MG/250 ML BOTTLE IV ONE (07:30)
[2022-03-05] MEDS ORDERED: ceFAZolin 1,000 MG VIAL ONE (07:30)
[2022-03-05] MEDS ORDERED: LIDOCAINE 2% SYG (PF) 100 MG/5 ML ONE (07:30)
[2022-03-05] MEDS ORDERED: fentaNYL (PF) 50 MCG/ML 50 ML VIAL ONE (07:30)
[2022-03-05] MEDS ORDERED: ePHEDrine 50 MG/ML 1 ML VIAL ONE (07:30)
[2022-03-05] MEDS ORDERED: SODIUM CHLORIDE 0.9% IRRIG 1,000 ML BTL IRRIGATION ONE (07:30)
[2022-03-05] MEDS ORDERED: CALCIUM CHLORIDE 100 MG/ML 10 ML SYRINGE ONE (07:30)
[2022-03-05] MEDS ORDERED: MAGNESIUM SULFATE 4 MEQ/ML 10ML VIAL ONE (07:30)
[2022-03-05] MEDS ORDERED: PROTAMINE SULFATE 10 MG/ML 5 ML VIAL IV ONE (07:30)
[2022-03-05 08:31] LABS: ABG Base Excess -2.2 mmol/L; ABG Glucose Whole Blood 97 mg/dL (75-99); ABG HCO3 23 mmol/L (21-25); ABG Hematocrit 35 % (34.0-46.0); ABG Ionized Calcium 4.9 mg/dL (4.5-5.3); ABG Lactic Acid Whole Blood 1.1 mmol/L (0.5-1.6); ABG Oxygen Saturation 99.2 % (94-97); ABG PCO2 41 mmHg (35-45); ABG PH 7.36 (7.35-7.45); ABG PO2 192 mmHg (83-108); ABG Potassium Whole Blood 4.1 mmol/L (3.4-4.5); ABG Sodium Whole Blood 143 mmol/L (135-146); ABG TCO2 24 mmol/L (19-24)
[2022-03-05] MEDS ORDERED: SODIUM CHLORIDE 0.9% 500 ML 500 ML with HEPARIN SODIUM,PORCINE 5,000 UNIT IV ONE ×2 (09:25)
[2022-03-05] MEDS ORDERED: ceFAZolin 1,000 MG in SODIUM CHLORIDE 0.9% 1,000 ML IRRIGATION ONE (09:26)
[2022-03-05 10:30] LABS: ABG Base Excess -3.5 mmol/L; ABG Glucose Whole Blood 109 mg/dL (75-99); ABG HCO3 22 mmol/L (21-25); ABG Hematocrit 34 % (34.0-46.0); ABG Ionized Calcium 4.6 mg/dL (4.5-5.3); ABG Lactic Acid Whole Blood 1.1 mmol/L (0.5-1.6); ABG Oxygen Saturation 98.2 % (94-97); ABG PCO2 41 mmHg (35-45); ABG PH 7.34 (7.35-7.45); ABG PO2 118 mmHg (83-108); ABG Potassium Whole Blood 4.3 mmol/L (3.4-4.5); ABG Sodium Whole Blood 142 mmol/L (135-146); ABG TCO2 23 mmol/L (19-24)
[2022-03-05 10:50] LABS: ABG Base Excess -0.9 mmol/L; ABG Glucose Whole Blood 110 mg/dL (75-99); ABG HCO3 24 mmol/L (21-25); ABG Hematocrit 32 % (34.0-46.0); ABG Ionized Calcium 4.5 mg/dL (4.5-5.3); ABG Lactic Acid Whole Blood 1.6 mmol/L (0.5-1.6); ABG PCO2 40 mmHg (35-45); ABG PH 7.39 (7.35-7.45); ABG PO2 102 mmHg (83-108); ABG Potassium Whole Blood 4.2 mmol/L (3.4-4.5); ABG Sodium Whole Blood 143 mmol/L (135-146); ABG TCO2 25 mmol/L (19-24)
[2022-03-05] MEDS ORDERED: AMIODARONE 450 MG in DEXTROSE 5% IN WATER 250 ML IV PRN ×2 (11:15)
[2022-03-05] MEDS ORDERED: DEXTROSE 5% IN WATER 100 ML with AMIODARONE 150 MG IV PRN (11:15)
[2022-03-05] MEDS ORDERED: AMIODARONE 360 MG in DEXTROSE 5% IN WATER 200 ML IV PRN ×2 (11:15)
[2022-03-05] MEDS ORDERED: DEXTROSE 50% SYRINGE 50 ML IVP PRN ×2 (11:15)
[2022-03-05] MEDS ORDERED: INSULIN REGULAR 100 UNIT in SODIUM CHLORIDE 0.9% 100 ML IV SCH (11:15)
--- NOTE | 2022-03-05 11:57 | P.PN ---
Subjective Progress Note Date: 03/03/22 Patient is a 46-year-old male with a known history of anxiety, currently every day smoker presents to ER with complaints of chest pain. Patient says that today morning when he was getting ready to go to work he felt like heartburn- like sensation in the mid retrosternal region. He also had pain on bilateral arms associated with nausea and mild shortness of breath. He felt fuzzy and diaphoretic. Pain was getting worse which made him to come to ER. Patient states that he has been having fluttering of the heart on and off for the past couple of weeks. Chest pain did improve by the time he come to ER. Denied any complaints of fever or chills. No cough or sputum production. No leg swelling. Denied any recent illnesses or sick contacts. Family history of coronary artery disease in his mother at age 48 and patient does smoke daily. EKG showed sinus rhythm with ST-T wave abnormalities Chest x-ray showed no acute cardiopulmonary process Laboratory data showed WBC 8.0 hemoglobin 14.0 and platelets 283 D-dimer is 0.37 Sodium 138 potassium 4.7 GERD with grade bicarb is 17 BUN 14 and creatinine 0.74 A1c 6.2 LDL 102 TSH 1.43 Troponin 0.077 and 0.212. Cardiology was consulted and patient underwent catheterization today. This showed severe single-vessel coronary disease involving the proximal portion of the LAD. 03/03/2022 Patient is currently resting in the bed. Awake alert oriented 3. No further episodes of chest pain or shortness of breath. Patient did have some lightheadedness. Improved with Tylenol. Otherwise patient is Nitro Paste. Carotid Duplex Showed 50-70% stenosis in the left ICA. Echocardiogram showed ejection fraction 50-55%. Patient otherwise denied any nausea vomiting abdominal pain and diarrhea. No cough or sputum production. No other acute overnight issues. Patient is scheduled for coronary artery bypass graft on Saturday. Next and current medications reviewed. Objective - Vital Signs Vital signs: Vital Signs Temp 98.4 F 03/03/22 20:19 Pulse 67 03/03/22 20:19 Resp 18 03/03/22 20:19 BP 114/61 03/03/22 20:19 Pulse Ox 97 03/03/22 20:19 FiO2 Intake & Output 03/03/22 03/03/22 03/04/22 06:59 18:59 06:59 Intake Total 116.279 3671.883 Balance 197.673 0015.883 Intake: Intake, IV Titration 143.781 933.883 Amount Heparin Sod,Pork in 0.45% 143.781 108.883 NaCl 25,000 unit In 0.45 % NaCl 1 250ml.bag @ 10. 02 UNITS/KG/HR 9.999 mls/ hr IV .Q24H [facility] Rx#: [id number] Sodium Chloride 0.9% 1, 825 000 ml @ 75 mls/hr IV . [id number] R[facility] Rx#:[id number] Oral 600 600 Other: Voiding Method Toilet Toilet Toilet Urinal Urinal Urinal # Voids 2 - Exam PHYSICAL EXAMINATION: Patient is lying in the bed comfortably, no acute distress, awake alert and oriented.. HEENT: Normocephalic. Neck is supple. Pupils reactive. Nostrils clear. Oral cavity is moist. Neck reveals no JVD, carotid bruits, or thyromegaly. CHEST EXAMINATION: Trachea is central. Symmetrical expansion. Lung guzman clear to auscultation and percussion. CARDIAC: Normal S1, S2 with no gallops. No murmurs ABDOMEN: Soft. Bowel sounds normal. No organomegaly. No abdominal bruits. Extremities: reveal no edema. No clubbing or cyanosis Neurologically awake, alert, oriented x3 with well-coordinated movements. No focal deficits noted Skin: No rash or skin lesions. Psychiatric: Coperative. Nonsuicidal Musculoskeletal: No joint swelling or deformity. Normal range of motion. - Labs CBC & Chem 7: 03/03/22 04:11 03/03/22 04:11 Labs: Abnormal Lab Results - Last 24 Hours (Table) 03/02/22 03/02/22 03/03/22 Range/Units 08:31 08:31 04:11 RBC (4.30-5.90) m/uL Hgb (13.0-17.5) gm/dL Hct (39.0-53.0) % APTT (22.0-30.0) sec Chloride (98-107) mmol/L Carbon Dioxide (22-30) mmol/L Glucose (74-99) mg/dL Hemoglobin A1c 6.2 H (0.0-6.0) % Troponin I (0.000-0.034) ng/mL Triglycerides 307.00 H (0.00-149.00) mg/dL Cholesterol 201.00 H (0.00-200.00) mg/dL VLDL Cholesterol, Calc 61.40 H (5.00-40.00) mg/dL HDL Cholesterol 37.20 L 37.60 L (40.00-60.00) mg/dL 03/03/22 03/03/22 03/03/22 Range/Units 04:11 04:11 04:11 RBC 4.20 L (4.30-5.90) m/uL Hgb 12.4 L (13.0-17.5) gm/dL Hct 35.8 L (39.0-53.0) % APTT 31.0 H (22.0-30.0) sec Chloride 109 H (98-107) mmol/L Carbon Dioxide 21 L (22-30) mmol/L Glucose 107 H (74-99) mg/dL Hemoglobin A1c (0.0-6.0) % Troponin I (0.000-0.034) ng/mL Triglycerides (0.00-149.00) mg/dL Cholesterol (0.00-200.00) mg/dL VLDL Cholesterol, Calc (5.00-40.00) mg/dL HDL Cholesterol (40.00-60.00) mg/dL 03/03/22 03/03/22 03/03/22 Range/Units 04:11 11:20 18:37 RBC (4.30-5.90) m/uL Hgb (13.0-17.5) gm/dL Hct (39.0-53.0) % APTT 42.7 H 49.7 H (22.0-30.0) sec Chloride (98-107) mmol/L Carbon Dioxide (22-30) mmol/L Glucose (74-99) mg/dL Hemoglobin A1c (0.0-6.0) % Troponin I 0.293 H* (0.000-0.034) ng/mL Triglycerides (0.00-149.00) mg/dL Cholesterol (0.00-200.00) mg/dL VLDL Cholesterol, Calc (5.00-40.00) mg/dL HDL Cholesterol (40.00-60.00) mg/dL Microbiology - Last 24 Hours (Table) 03/02/22 16:30 Nasal Screen MRSA/MSSA - Preliminary Nasal Swab Assessment and Plan Assessment: Acute non-ST elevated [place] status post cardiac catheterization Severe single-vessel CAD involving the proximal LAD. Hyperlipidemia Hypertension Ongoing nicotine addiction Family history of premature coronary artery disease DVT prophylaxis Plan: Patient was started on heparin drip. Continue with telemetry monitoring. Status post cardiac catheterization which showed severe disease involving proximal LAD. Patient is being evaluated for coronary artery bypass graft. Patient is scheduled for coronary revascularization on Saturday Continue with incentive spirometry and pulmonary testing was done.. Discussed the patient at bedside in detail. Prognosis is guarded stent. Time with Patient: Greater than 30
--- NOTE | 2022-03-05 11:58 | P.PN ---
Subjective Progress Note Date: 03/04/22 Patient is a 46-year-old male with a known history of anxiety, currently every day smoker presents to ER with complaints of chest pain. Patient says that today morning when he was getting ready to go to work he felt like heartburn- like sensation in the mid retrosternal region. He also had pain on bilateral arms associated with nausea and mild shortness of breath. He felt fuzzy and diaphoretic. Pain was getting worse which made him to come to ER. Patient states that he has been having fluttering of the heart on and off for the past couple of weeks. Chest pain did improve by the time he come to ER. Denied any complaints of fever or chills. No cough or sputum production. No leg swelling. Denied any recent illnesses or sick contacts. Family history of coronary artery disease in his mother at age 48 and patient does smoke daily. EKG showed sinus rhythm with ST-T wave abnormalities Chest x-ray showed no acute cardiopulmonary process Laboratory data showed WBC 8.0 hemoglobin 14.0 and platelets 283 D-dimer is 0.37 Sodium 138 potassium 4.7 GERD with grade bicarb is 17 BUN 14 and creatinine 0.74 A1c 6.2 LDL 102 TSH 1.43 Troponin 0.077 and 0.212. Cardiology was consulted and patient underwent catheterization today. This showed severe single-vessel coronary disease involving the proximal portion of the LAD. 03/03/2022 Patient is currently resting in the bed. Awake alert oriented 3. No further episodes of chest pain or shortness of breath. Patient did have some lightheadedness. Improved with Tylenol. Otherwise patient is Nitro Paste. Carotid Duplex Showed 50-70% stenosis in the left ICA. Echocardiogram showed ejection fraction 50-55%. Patient otherwise denied any nausea vomiting abdominal pain and diarrhea. No cough or sputum production. No other acute overnight issues. Patient is scheduled for coronary artery bypass graft on Saturday. 03/04/2022 Patient is resting in bed. Awake alert and oriented 3. No episodes of chest pain or shortness of breath overnight. No nausea vomiting or abdominal pain. No headache or dizziness or lightheadedness. No other acute overnight issues. Patient is scheduled for coronary revascularization tomorrow. Laboratory data reviewed. current medications reviewed. Objective - Vital Signs Vital signs: Vital Signs Temp 98.5 F 03/04/22 20:00 Pulse 65 03/04/22 20:00 Resp 16 10/02/22 20:00 BP 123/79 03/04/22 20:00 Pulse Ox 93 L 03/04/22 20:00 FiO2 Intake & Output 03/04/22 03/04/22 03/05/22 06:59 18:59 06:59 Intake Total 8437.857 2793 Balance 7402.724 0231 Weight 108 kg Intake: Intake, IV Titration 1147.336 775 Amount Heparin Sod,Pork in 0.45% 247.336 250 NaCl 25,000 unit In 0.45 % NaCl 1 250ml.bag @ 10. 02 UNITS/KG/HR 9.999 mls/ hr IV .Q24H R[facility] Rx#: [id number] Sodium Chloride 0.9% 1, 900 525 000 ml @ 75 mls/hr IV . [id number] R[facility] Rx#:[id number] Oral 500 1318 Other: Voiding Method Toilet Toilet Toilet Urinal Urinal Urinal # Voids 2 - Exam PHYSICAL EXAMINATION: Patient is lying in the bed comfortably, no acute distress, awake alert and oriented.. HEENT: Normocephalic. Neck is supple. Pupils reactive. Nostrils clear. Oral cavity is moist. Neck reveals no JVD, carotid bruits, or thyromegaly. CHEST EXAMINATION: Trachea is central. Symmetrical expansion. Lung guzman clear to auscultation and percussion. CARDIAC: Normal S1, S2 with no gallops. No murmurs ABDOMEN: Soft. Bowel sounds normal. No organomegaly. No abdominal bruits. Extremities: reveal no edema. No clubbing or cyanosis Neurologically awake, alert, oriented x3 with well-coordinated movements. No focal deficits noted Skin: No rash or skin lesions. Psychiatric: Coperative. Nonsuicidal Musculoskeletal: No joint swelling or deformity. Normal range of motion. - Labs CBC & Chem 7: 03/03/22 04:11 03/03/22 04:11 Labs: Abnormal Lab Results - Last 24 Hours (Table) 03/04/22 03/04/22 03/04/22 Range/Units 05:50 05:50 05:50 APTT 58.1 H (22.0-30.0) sec Troponin I 0.193 H* (0.000-0.034) ng/mL Crossmatch See Detail Microbiology - Last 24 Hours (Table) 03/02/22 16:30 Nasal Screen MRSA/MSSA - Final Nasal Swab Assessment and Plan Assessment: Acute non-ST elevated [place] status post cardiac catheterization Severe single-vessel CAD involving the proximal LAD. Hyperlipidemia Hypertension Ongoing nicotine addiction Family history of premature coronary artery disease DVT prophylaxis Plan: Patient was started on heparin drip. Continue with telemetry monitoring. Status post cardiac catheterization which showed severe disease involving proximal LAD. Patient is being evaluated for coronary artery bypass graft. Patient is scheduled for coronary revascularization on Saturday Continue with incentive spirometry and pulmonary testing was done.. Discussed the patient at bedside in detail. Prognosis is guarded stent.
[2022-03-05] MEDS: LACTATED RINGERS 1,000 ML IV SCH (12:15)
[2022-03-05] MEDS ORDERED: ALBUMIN HUMAN 5% 250 ML IVPB ONE (12:16)
[2022-03-05 12:27] LABS: Glucose,Whole Blood 98 mg/dL (70-110)
[2022-03-05] MEDS ORDERED: Potassium Replacement Protocol 1 EACH MISC MISCELLANE PRN ×2 (12:40→13:47)
[2022-03-05] MEDS ORDERED: Phosphorus Replacement Protoco 1 EACH MISC MISCELLANE PRN (12:40)
[2022-03-05] MEDS ORDERED: CALCIUM GLUCONATE IN NACL 2 GM in SALINE 1 100ML.BAG IVPB PRN (12:40)
[2022-03-05] MEDS ORDERED: IPRATROPIUM-ALBUTEROL 3 ML NEB INHALATION PRN (12:40)
[2022-03-05] MEDS ORDERED: METOCLOPRAMIDE 5 MG/ML 2 ML VIAL IVP PRN (12:40)
[2022-03-05] MEDS ORDERED: ONDANSETRON 4 MG/2 ML VIAL IVP PRN (12:40)
[2022-03-05] MEDS ORDERED: BENZOCAINE/MENTHOL LOZENG 1 EACH LOZENGE MUCOUS MEM PRN (12:40)
[2022-03-05] MEDS ORDERED: Magnesium Replacement Protocol 1 EACH MISC MISCELLANE PRN (12:40)
[2022-03-05] MEDS ORDERED: hydrALAZINE HCL 20 MG/ML 1 ML VIAL IVP PRN (12:40)
[2022-03-05] MEDS ORDERED: NITROGLYCERIN-D5W PMX 50 MG in DEXTROSE/WATER 1 250ML.BAG IV SCH (12:45)
--- NOTE | 2022-03-05 12:56 | XR ---
EXAMINATION TYPE: XR chest 1V portable DATE OF EXAM: 03/05/2022 COMPARISON: 03/02/2022 HISTORY: Post open heart TECHNIQUE: Single frontal view of the chest is obtained. FINDINGS: ET and NG tube noted. Tip of the ET tube seen approximately 4.9 cm above akil. [place]-Meaghan catheter seen with the tip overlying the proximal pulmonary outflow tract there is a mediastinal rosemarie in and chest tubes. No sizable pneumothorax. There is a diffuse interstitial pattern with small bilat eral effusions and bibasilar consolidation. Postsurgical changes noted. IMPRESSION: 1. Postoperative changes correlate for venous congestion and small bilateral effusions. Basilar atele ctasis versus infiltrate.
[2022-03-05 13:03] LABS: Basophils % (A) 0 %; Eosinophils # (A) 0.1 k/uL (0-0.7); Eosinophils % (A) 1 %; HCT 28.5 % (39.0-53.0); HGB 10.1 gm/dL (13.0-17.5); Lymphocytes # (A) 1.9 k/uL (1.0-4.8); Lymphocytes % (A) 21 %; MCH 31.1 pg (25.0-35.0); MCHC 35.6 g/dL (31.0-37.0); MCV 87.3 fL (80.0-100.0); Monocytes # (A) 0.4 k/uL (0-1.0); Monocytes % (A) 4 %; Neutrophils # (A) 6.5 k/uL (1.3-7.7); Neutrophils % (A) 72 %; Platelet Count 189 k/uL (150-450); RBC 3.26 m/uL (4.30-5.90); RDW 12.9 % (11.5-15.5); WBC 8.9 k/uL (3.8-10.6)
[2022-03-05 13:07] LABS: ABG Base Excess -1.4 mmol/L; ABG HCO3 24 mmol/L (21-25); ABG PCO2 40 mmHg (35-45); ABG PH 7.38 (7.35-7.45); ABG PO2 165 mmHg (83-108); ABG TCO2 25 mmol/L (19-24); Allen Test Performed? Yes
[2022-03-05 13:15] LABS: Partial Thromboplastin Time 22.4 sec (22.0-30.0); Prothrombin Time 10.8 sec (9.0-12.0)
[2022-03-05 13:18] LABS: ALT 34 U/L (4-49); AST 29 U/L (17-59); African American GFR (CKD) >90 (>60 ml/min/1.73 sqM); Alkaline Phosphatase 42 U/L (38-126); Anion Gap 8 mmol/L; Blood Urea Nitrogen 9 mg/dL (9-20); Calcium 7.7 mg/dL (8.4-10.2); Carbon Dioxide 22 mmol/L (22-30); Chloride 110 mmol/L (98-107); Glucose 89 mg/dL (74-99); Non-African American GFR(CKD) >90 (>60 ml/min/1.73 sqM); Potassium 3.8 mmol/L (3.5-5.1); Sodium 140 mmol/L (137-145); Total Bilirubin 0.4 mg/dL (0.2-1.3); Total Protein 4.8 g/dL (6.3-8.2)
[2022-03-05] MEDS: CLEVIDIPINE BUTYRATE 25 MG in EMPTY BAG 1 BAG IV SCH ×3 (13:20→19:56)
[2022-03-05 13:40] LABS: Glucose,Whole Blood 93 mg/dL (70-110)
--- NOTE | 2022-03-05 13:41 | US ---
EXAMINATION TYPE: US vein mapping BIL DATE OF EXAM: 03/02/2022 9:05 PM COMPARISON: NONE CLINICAL HISTORY: PreOp Cardiac Surgery. Pre-Op cardiac surgery. SIDE PERFORMED: Bilateral TECHNIQUE: Lower extremity saphenous vein is examined and measured utilizing real time linear array sonography. Patient History: Smoker: Yes Heart Disease: Yes Previous DVT: No Vascular Surgery: No Discoloration: No Hypertension: Yes Diabetes: No Paralysis: No Varicosities: No Edema: No DUPLEX FINDINGS: Greater Saphenous: Color flow seen Measurements in mm: Right Greater Saphenous: Groin: 7.0 x 8.9 mm mm High Thigh: 5.4 x 7.4 mm Mid Thigh: 5.4 x 7.0 mm Above Knee: 5.2 x 5.4 mm Knee: 4.6 x 5.5 mm Below Knee: 4.7 x 5.7 mm Mid Calf: 2.9 x 3.8 mm At Ankle: 2.9 x 4.9 mm Left Greater Saphenous: Groin: 7.5 x 7.2 mm High Thigh: 6.4 x 6.8 mm Mid Thigh: 5.1 x 5.7 mm Above Knee: 5.4 x 6.0 mm Knee: 4.4 x 5.6 mm Below Knee: 4.1 x 5.4 mm Mid Calf: 2.3 x 3.7 mm At Ankle: 2.3 x 3.7 mm IMPRESSION: 1. Bilateral GSV measurements listed above. 2. Performing surgeon to determine viability as conduit.
--- NOTE | 2022-03-05 13:42 | US ---
EXAMINATION TYPE: Pre-Operative Non-Invasive Evaluation of the hand for Potential Radial Artery Avi mireles, Measurements only DATE OF EXAM: 03/02/2022 9:05 PM CLINICAL HISTORY: Pre-Op Cardiac Surgery. Pre-Op cardiac surgery. Ordered for left radial measurement s only. SIDE PERFORMED: Left TECHNIQUE: Radial artery is measured utilizing real time linear array sonography. Dominant hand: Right Duplex Findings: Radial Artery: Color flow seen Measurements in mm, transverse view: Left Radial: Proximal: 3.7 x 3.5 mm Mid: 3.4 x 4.0 mm Distal: 3.1 x 4.0 mm IMPRESSION: Left upper extremity radial arterial measurements as detailed above. Performing surgeon to determine what vessel is used as conduit for surgical planning.
[2022-03-05] MEDS: VORTIOXETINE HYDROBROMIDE 10 MG TABLET PO SCH (13:43)
[2022-03-05] MEDS: SODIUM CHLORIDE 0.9% 1,000 ML IV SCH (13:43)
[2022-03-05 14:11] LABS: ABG Base Excess -1.8 mmol/L; ABG HCO3 24 mmol/L (21-25); ABG Oxygen Saturation 86.7 % (94-97); ABG PCO2 46 mmHg (35-45); ABG PH 7.33 (7.35-7.45); ABG TCO2 26 mmol/L (19-24); Allen Test Performed? Yes
[2022-03-05] MEDS ORDERED: CISATRACURIUM 2 MG/ML 5 ML VIAL IV ONE (14:35)
[2022-03-05 14:48] LABS: ABG PO2 53 mmHg (83-108)
[2022-03-05] MEDS: POTASSIUM CHLORIDE 10 MEQ in WATER FOR INJECTION 1 100ML.BAG IVPB SCH ×2 (14:52→15:52)
[2022-03-05] MEDS: CISATRACURIUM 200 MG in SODIUM CHLORIDE 0.9% 180 ML IV SCH (14:58)
[2022-03-05] MEDS: ARTIFICIAL TEARS-HYPROMELLOSE DROPS 15 ML BTL BOTH EYES SCH ×2 (14:58→20:48)
--- NOTE | 2022-03-05 15:03 | XR ---
EXAMINATION TYPE: XR chest 1V portable DATE OF EXAM: 03/05/2022 2:57 PM COMPARISON: Chest radiographs from 03/05/2022 TECHNIQUE: XR chest 1V portable Portable AP radiograph of the chest. CLINICAL INDICATION:Male, 46 years old with history of desats; FINDINGS: Lungs/Pleura: Low lung volumes are present. Generalized haziness the lungs likely secondary to atelec tasis. There is no evidence of pleural effusion, or pneumothorax. Pulmonary vascularity: Unremarkable. Heart/mediastinum: Cardiomediastinal silhouette is partially obscured due to overlying and adjacent o pacities. Musculoskeletal: No acute osseous pathology. Lines/Tubes: Endotracheal tube with distal tip 5.3 cm above the akil Nasogastric tube with its distal tip and side-port projecting under the diaphragm. Bilateral thoracotomy tubes are present without evidence of pneumothorax. There is a [place]-Meaghan catheter with tip projecting over the spine. Drainage tubes with tips projecting over the mediastinum. IMPRESSION: Post surgical changes with lines and tubes in appropriate position. No pneumothorax.
[2022-03-05 15:12] LABS: Glucose,Whole Blood 107 mg/dL (70-110)
--- NOTE | 2022-03-05 15:12 | P.PN ---
Subjective Progress Note Date: 03/05/22 Principal diagnosis: Status post single-vessel bypass. Coronary artery disease, scheduled for CABG in a.m. This is a 46-year-old white male, [id number] smoking history, known history of dyslipidemia, strong family history of coronary artery disease, mother had ND in her 40s, patient presented to the ER with chest discomfort. Patient felt that the pain was left-sided, radiating to upper extremities, it was associated with slight shortness of breath and nausea/diaphoresis. Patient was seen by cardiology and felt to have non-ST elevation myocardial infarction. Patient un derwent cardiac catheterization, he was found to have significant extensive LAD disease, patient was advised by cardiology to have myocardial revascularization, and this is scheduled to be done next Saturday. We were asked to see the patient on consultation for pulmonary clearance. Patient doesn't smoke, and he denies any symptoms of cough wheezing or shortness of breath. Never been diagnosed wit h COPD, not on any inhalers. Patient has been quite active able to walk a mile easily and able to climb a few flights of stairs without any difficulty. Again he had no previous documented pulmonary bedside PFT is pending Reevaluated today on 03/06/22, patient is doing great, asymptomatic, in no di stress, scheduled for myocardial revascularization in a.m. Progress note dated 03/05/2022. Today is postop day #0, status post SAHU to LAD single-vessel off-pump bypass. The patient came back to the ICU, and room 264, and initially, he was on the volume assist control, rate 16, tidal volume 550, FiO2 100%, and PEEP of 10. Initial blood gases showed a pO2 of 165, pCO2 of 40, pH is 7.38. FiO2 was dropped down to 40%. Subsequent to that, the patient's saturations dropped down into the 80s and even high 70s. A repeat blood gas showed a pO2 of 53, pCO2 of 46, and pH is 7.33. The patient was increased back up to 100%. Currently, the patient's on IV nitroglycerin at 5 mcg/m, propofol at 50 mcg/kg/m, and Cleveprex at 2 mg an hour. I was called down to the intensive care unit, because of the low saturations. I assessed the patient at the bedside. The chest x-ray initially looked better than the subsequent chest x-ray which seemed to show some bilateral infiltrates. Could relate to pulmonary edema. In addition, I felt endotracheal tube she be pushed down 1 cm. Also, I decided to paralyzed the patient, giving him 10 mg a Nimbex IV push, and then a drip at 2 mcg/kg/m, with the idea that we would keep him paralyzed, overnight, and work on getting him extubated in the morning. Additional labs today include a white count of 8.9, hemoglobin 10.1, hematocrit 28.5, and a platelet count of 289,000. Sodium 140, potassium 3.8, chlorides 110, CO2 22, with a normal anion gap, BUN, and creatinine. All x-rays from today were reviewed. Objective - Vital Signs Vital signs: Vital Signs Temp 98.6 F 03/05/22 13:30 Pulse 86 03/05/22 13:30 Resp 16 03/05/22 13:30 BP 143/84 03/05/22 13:30 Pulse Ox 95 03/05/22 13:30 FiO2 40 03/05/22 13:15 Intake & Output 03/04/22 03/05/22 03/05/22 18:59 06:59 18:59 Intake Total 2093 1448 6.900 Output Total 810 Balance 2093 1448 -803.100 Weight 109.1 kg Intake: IV 100 3 Intake, IV Titration 775 948 3.900 Amount Clevidipine Butyrate 25 3.900 mg In Empty Bag 1 bag @ 1 MG/HR 2 mls/hr IV .Q24H RICHA Rx#:[id number] Heparin Sod,Pork in 0.45% 250 NaCl 25,000 unit In 0.45 % NaCl 1 250ml.bag @ 10. 02 UNITS/KG/HR 9.999 mls/ hr IV .Q24H RICHA Rx#: [id number] Sodium Chloride 0.9% 1, 525 300 000 ml @ 75 mls/hr IV . [id number] RICHA Rx#:[id number] Sodium Chloride 0.9% 1, 648 000 ml In Empty Bag 1 bag @ 1 ML/KG/HR 99.79 mls/ hr IV .Q10H2M RICHA Rx#: [id number] Oral 1318 400 Output: Urine 510 Estimated Blood Loss 300 Other: Voiding Method Toilet Toilet Urinal Urinal ABP, PAP, CO, CI - Last Documented Arterial Blood Pressure 182/76 Pulmonary Artery Pressure 39/27 Cardiac Output 8.4 Cardiac Index 3.7 - Exam Agitated, moving head from side to side, with an orally placed endotracheal tube. The patient was biting down on the endotracheal tube. HEENT examination is grossly unremarkable. Neck supple. Full range of motion. No adenopathy thyromegaly or neck vein distention. Cardiovascular examination reveals regular rhythm rate. S1-S2 normal. No S3 or S4. No discernible murmur noted. Heart rate 100 bpm. Lungs reveal scattered bilateral rhonchi. No wheezes or crackles. Breath sounds equal bilaterally. Saturations improved to 96%. Abdomen soft bowel sounds are heard. No masses or tenderness. Extremities are intact. No cyanosis clubbing or edema. Skin is without rash or lesion. Neurologic examination cannot be adequately assessed. - Labs CBC & Chem 7: 03/05/22 12:27 03/05/22 12:27 Labs: Abnormal Lab Results - Last 24 Hours (Table) 03/04/22 03/05/22 03/05/22 Range/Units 05:50 08:35 10:34 RBC (4.30-5.90) m/uL Hgb (13.0-17.5) gm/dL Hct (39.0-53.0) % ABG pH 7.34 L (7.35-7.45) ABG pCO2 (35-45) mmHg ABG pO2 192 H 118 H (83-108) mmHg ABG Total CO2 (19-24) mmol/L ABG O2 Saturation 99.2 H 98.2 H (94-97) % ABG Hematocrit (34.0-46.0) % ABG Glucose 109 H (75-99) mg/dL Hemoglobin 11.5 L 11.0 L (13.0-17.5) gm/dL Chloride (98-107) mmol/L Calcium (8.4-10.2) mg/dL Total Protein (6.3-8.2) g/dL Albumin (3.5-5.0) g/dL Arterial Blood Glucose 109 H (75-99) mg/dL Crossmatch See Detail 03/05/22 03/05/22 03/05/22 Range/Units 10:54 12:27 12:27 RBC 3.26 L (4.30-5.90) m/uL Hgb 10.1 L (13.0-17.5) gm/dL Hct 28.5 L (39.0-53.0) % ABG pH (7.35-7.45) ABG pCO2 (35-45) mmHg ABG pO2 (83-108) mmHg ABG Total CO2 25 H (19-24) mmol/L ABG O2 Saturation 98.0 H (94-97) % ABG Hematocrit 32 L (34.0-46.0) % ABG Glucose 110 H (75-99) mg/dL Hemoglobin 10.6 L (13.0-17.5) gm/dL Chloride 110 H (98-107) mmol/L Calcium 7.7 L (8.4-10.2) mg/dL Total Protein 4.8 L (6.3-8.2) g/dL Albumin 3.0 L (3.5-5.0) g/dL Arterial Blood Glucose 110 H (75-99) mg/dL Crossmatch 03/05/22 03/05/22 Range/Units 12:40 14:09 RBC (4.30-5.90) m/uL Hgb (13.0-17.5) gm/dL Hct (39.0-53.0) % ABG pH 7.33 L (7.35-7.45) ABG pCO2 46 H (35-45) mmHg ABG pO2 165 H 53 L* (83-108) mmHg ABG Total CO2 25 H 26 H (19-24) mmol/L ABG O2 Saturation 100.0 H 86.7 L (94-97) % ABG Hematocrit (34.0-46.0) % ABG Glucose (75-99) mg/dL Hemoglobin (13.0-17.5) gm/dL Chloride (98-107) mmol/L Calcium (8.4-10.2) mg/dL Total Protein (6.3-8.2) g/dL Albumin (3.5-5.0) g/dL Arterial Blood Glucose (75-99) mg/dL Crossmatch Assessment and Plan Assessment: Postop day #0, status post single-vessel bypass, SAHU to LAD, off pump. Chronic nicotine dependence. Family history of premature coronary disease. Hyperlipidemia. Plan: Plan dated 03/05/2022. The patient came back to the intensive care unit, with an initial blood gas showing a pO2 of 165 on 10 of PEEP. The FiO2 was dropped down to 40%. The patient saturations drop, and the repeat PaO2 was only 53. The FiO2 was then increased back up to 100%. I was called down to the ICU, to evaluate the patient. X-rays were reviewed. The patient was a bit agitated and moving his head from [id number], and probably biting down on the endotracheal tube. I decided to paralyze the patient with tendon Nimbex IV push, and immediately, the patient's saturations improved. He also placed endotracheal tube down 1 cm. The patient was placed on Nimbex drip at 2 mcg/kg/m. The patient will remain paralyzed overnight. Additional recommendations and suggestions are forthcoming. Labs, x-rays, and medications are reviewed. A repeat blood gas will be done in about an hour. Time with Patient: Greater than 30
--- NOTE | 2022-03-05 15:13 | XR ---
EXAMINATION TYPE: XR chest 1V portable DATE OF EXAM: 03/05/2022 2:57 PM COMPARISON: Chest radiographs from same day. TECHNIQUE: XR chest 1V portable Portable AP radiograph of the chest. CLINICAL INDICATION:Male, 46 years old with history of desat; FINDINGS: Lungs/Pleura: Inspiratory effort on this exam. Persistent left basilar probable atelectasis. There is no evidence of pleural effusion, or pneumothorax. Pulmonary vascularity: Unremarkable. Heart/mediastinum: Cardiomediastinal silhouette is partially obscured due to overlying and adjacent o pacities. Musculoskeletal: No acute osseous pathology. Lines/Tubes: Endotracheal tube with distal tip 6.3 cm above the akil Nasogastric tube with its distal tip and side-port projecting under the diaphragm. Bilateral thoracotomy tubes are present without evidence of pneumothorax. There is a [place]-Meaghan catheter with tip projecting over the spine. Drainage tubes with tips projecting over the mediastinum. IMPRESSION: Improved inspiration effort with streaky atelectasis in the left lung base Post surgical changes with lines and tubes in appropriate position. No pneumothorax.
[2022-03-05 15:22] LABS: ABG Base Excess -1.9 mmol/L; ABG HCO3 24 mmol/L (21-25); ABG Oxygen Saturation 99.2 % (94-97); ABG PCO2 43 mmHg (35-45); ABG PH 7.35 (7.35-7.45); ABG PO2 126 mmHg (83-108); ABG TCO2 25 mmol/L (19-24); Allen Test Performed? Yes
[2022-03-05] MEDS: HEPARIN SODIUM,PORCINE/PF 5,000 UNIT/0.5 ML SYRINGE SQ SCH (16:02)
[2022-03-05 16:15] LABS: Glucose,Whole Blood 111 mg/dL (70-110)
[2022-03-05] MEDS: IPRATROPIUM-ALBUTEROL 3 ML NEB INHALATION SCH ×2 (16:37→19:44)
--- NOTE | 2022-03-05 16:41 | P.ANPRN ---
Procedure Note - Anesthesia - Invasive Line Right Central Line Time Out Performed: Yes ([id number]) Date of Procedure: 03/05/22 Time of Procedure: 07:32 Location of Patient: PreOp Preparation: Sterile Prep, Sterile Dressing Ultrasound Used: Yes Purpose - Visualization and Identification of Vasculature: Yes Image Stored and Saved: Yes Narrative: Central line placement per sterile protocol utilized. Informed consent obtained. Central line placement per sterile protocol utilized. Right Internal jugular vein cannulated under aseptic precautions. 3cc 1% lidocaine infiltrated initially after cleaning with iodine based prep and draping. Ultrasound used to locate the vein and selginger technique used. 9Fr introduced sheath inserted and after the finding the needle with barge pilot needle/catheter. After the insertion of PA Catheter in the operating room, the line is dressed with biopatch and tegaderm. Patient tolerated the procedure well. Right [place] Meaghan Time Out Performed: Yes Date of Procedure: 03/05/22 Time of Procedure: 07:42 Location of Patient: PreOp Preparation: Sterile Prep, Sterile Dressing Ultrasound Used: Yes Purpose - Visualization and Identification of Vasculature: Yes Narrative: Central line placement per sterile protocol utilized. Central line placement per sterile protocol utilized. 8Ff PA catheter threaded through the Right IJ introducer sheath under asepsis with continuous waveform monitoring. Catheter at 48 cms molly. - RADHA Intraop Pre Bypass RADHA Intraop - Anesthesia Indication: Coronary artery bypass graft off-pump Date of Procedure: 03/05/22 Pre-operative Diagnosis: Coronary artery disease Post-operative Diagnosis: Coronary artery disease status post CABG Surgeon: Angel Colby Left Ventricle: Ejection fraction 55-60%, normal regional wall motion abnormalities noted. Mild LVH noted. Ejection Fraction: Normal Regional Wall Motion Abnormalities: None Left Ventricle Hypertrophy: Yes (Mild) R. Ventricle Function: Normal Anatomy: Trileaflet Aortic Stenosis: None Aortic Regurgitation: None Other Findings: Peak gradient 7 mmHg and mean gradient 3 mm of Hg Mitral Stenosis: None Mitral Regurgitation: Mild Tricuspid Stenosis: None Tricuspid Regurgitation: Trace Pulmonic Stenosis: None Pulmonic Regurgitation: None R. Atrial Dilation: No R. Atrial PFO: No Left Atrium: No clot Seen in the appendage L. Atrial Dilation: No Aorta: Grade 1-2 atheroma seen. Aortic Dissection: No Aortic Calcification: None Plural Effusion: None - RADHA Intraop Post Bypass RADHA Intraop Post Bypass Procedure Performed: Coronary artery bypass graft off-pump Left Ventricle: Ejection fraction 55-60%. No regional wall motion abnormalities noted. Ejection Fraction: Normal Regional Wall Motion Abnormalities: None R. Ventricle Function: Normal Aortic Valve: Unchanged Mitral Valve: Unchanged Tricuspid: Unchanged Pulmonic: Unchanged Aortic Dissection: No
[2022-03-05 16:57] LABS: Basophils % (A) 0 %; Eosinophils # (A) 0.1 k/uL (0-0.7); Eosinophils % (A) 1 %; HGB 11.6 gm/dL (13.0-17.5); Lymphocytes # (A) 1.3 k/uL (1.0-4.8); Lymphocytes % (A) 11 %; MCH 30.9 pg (25.0-35.0); MCHC 35.1 g/dL (31.0-37.0); Mean Platelet Volume 8.4; Monocytes # (A) 0.7 k/uL (0-1.0); Monocytes % (A) 5 %; Neutrophils % (A) 83 %; Platelet Count 212 k/uL (150-450); RBC 3.74 m/uL (4.30-5.90); RDW 12.9 % (11.5-15.5); WBC 12.1 k/uL (3.8-10.6)
[2022-03-05 17:09] LABS: Glucose,Whole Blood 115 mg/dL (70-110)
[2022-03-05] MEDS: ACETAMINOPHEN IV (For NPO) 1,000 MG in EMPTY BAG 1 BAG IVPB SCH (18:02)
[2022-03-05 18:07] LABS: Glucose,Whole Blood 123 mg/dL (70-110)
[2022-03-05] MEDS: KETOROLAC 15 MG/ML 1 ML VIAL IVP SCH (18:09)
[2022-03-05 18:42] LABS: Magnesium 1.9 mg/dL (1.6-2.3); Potassium 4.2 mmol/L (3.5-5.1)
[2022-03-05 19:07] LABS: Basophils % (A) 0 %; Eosinophils # (A) 0.1 k/uL (0-0.7); Eosinophils % (A) 0 %; HCT 33.4 % (39.0-53.0); HGB 11.8 gm/dL (13.0-17.5); Lymphocytes # (A) 0.9 k/uL (1.0-4.8); Lymphocytes % (A) 6 %; MCH 31.2 pg (25.0-35.0); MCHC 35.3 g/dL (31.0-37.0); MCV 88.5 fL (80.0-100.0); Mean Platelet Volume 7.8; Monocytes # (A) 0.8 k/uL (0-1.0); Monocytes % (A) 5 %; Neutrophils # (A) 12.9 k/uL (1.3-7.7); Neutrophils % (A) 87 %; Platelet Count 224 k/uL (150-450); RBC 3.77 m/uL (4.30-5.90); WBC 14.8 k/uL (3.8-10.6)
[2022-03-05 19:14] LABS: Glucose,Whole Blood 131 mg/dL (70-110)
[2022-03-05 20:05] LABS: Glucose,Whole Blood 130 mg/dL (70-110)
[2022-03-05] MEDS: CHLORHEXIDINE GLUCONATE 15 ML CUP MUCOUS MEM SCH (20:59)
[2022-03-05] MEDS: MAGNESIUM SULFATE-D5W PMX 1 GM in DEXTROSE/WATER 1 100ML.BAG IVPB SCH ×2 (20:59→22:55)
--- NOTE | 2022-03-05 20:59 | OP ---
OPERATIVE REPORT PREOPERATIVE DIAGNOSIS: Coronary artery disease. POSTOPERATIVE DIAGNOSIS: Coronary artery disease. PROCEDURES PERFORMED: 1. Off-pump coronary artery bypass grafting x1 vessel (left internal mammary artery to left anterior descending artery). 2. Lysis of adhesions. 3. Graft measurements using Medistim flow device. 4. Transesophageal echocardiogram. ASSISTANTS: 1. Jadiel Bales MD. 2. Carlos Albrecht PA-C. ANESTHESIA: General. SPECIMENS: None. COMPLICATIONS: None. INDICATIONS FOR PROCEDURE: The patient is a 46-year-old male with a past medical history extensive for hyperlipidemia, hypertension, and tobacco use, who presented to the emergency department with chest pain associated with shortness of breath. Workup revealed a non ST elevation myocardial infarction. Cardiac catheterization reveals a tight proximal LAD lesion. A coronary artery bypass recommended. The risks, benefits, and alternatives to this procedure were discussed with the patient. All his questions were answered. Consent was obtained. FINDINGS: The left internal mammary artery was a good conduit with brisk flow. The left anterior descending artery measured 1.75 mm. DESCRIPTION OF PROCEDURE: The patient was taken to the operating room, placed supine on the operating table. After induction of general anesthesia, he was prepped and draped in the usual sterile fashion. Preoperative transesophageal echocardiogram confirmed a preserved ejection fraction with no significant valvular pathology. Starting pulmonary artery systolic pressures were in the high 40s to low 50s. A median sternotomy was performed. The left internal mammary artery was harvested in a standard fashion taking care to clip all branches. Intravenous heparin was administered to achieve ACT greater than 250. The vessel was transected distally revealing brisk flow. I began to open the pericardium. There were extensive dense adhesions noted throughout the pericardial space. These were carefully lysed sharply using scissors. The left atrial appendage was identified, it was dense. It was tightly stuck to the heart itself. I did not feel it was worth trying to dissect it out given the fact that he does not have a history of atrial fibrillation. At this point, a folded moistened lap pad was placed behind the heart. Using a stabilizing device, the mid LAD was isolated. Dissection was taken down and the vessel was identified. A small arteriotomy was created and a 1.75 mm flow through shunt was introduced without difficulty. Using the left internal mammary artery, an end-to-side anastomosis was created. This was performed using running 8-0 Prolene suture. The graft was hemostatic. The mammary pedicle was intact on the anterior surface of the heart. Protamine was administered. There were no adverse reactions. At this point, graft flow measurements were performed on the left internal mammary artery to left anterior descending artery. Graft flow was approximately 29 mL/minute. The PI was 2.3. The mediastinum was then copiously irrigated with warm saline solution. All surgical sites were inspected and appeared to be hemostatic. Soft tissues reapproximated with ascending aorta as well as the apex of the heart. Chest tubes were placed in both the left pleural space and mediastinum. A Erasto drain was placed in the right pleural space. These were all secured to the skin using sutures. The sternum was then reapproximated using the [place] cable system. The cables were placed in a figure-of- eight fashion. At the completion of closure, the sternum was well aligned. The remainder of the wound was closed in layers. A sterile dressing was applied. The patient appeared to tolerate the procedure well. There were no immediate complications. He returned to the ICU in critical, but stable condition. MMODL / IJN: [id number] /
[2022-03-05 21:06] LABS: Glucose,Whole Blood 138 mg/dL (70-110)
[2022-03-05] MEDS: MUPIROCIN 2% OINT 22 GM TUBE NASAL SCH (21:34)
[2022-03-05 22:08] LABS: Glucose,Whole Blood 161 mg/dL (70-110)
[2022-03-05 23:05] LABS: Glucose,Whole Blood 134 mg/dL (70-110)
[2022-03-06 00:14] LABS: Glucose,Whole Blood 137 mg/dL (70-110)
--- NOTE | 2022-03-06 00:14 | P.PN ---
Subjective Progress Note Date: 03/05/22 Patient is a 46-year-old male with a known history of anxiety, currently every day smoker presents to ER with complaints of chest pain. Patient says that today morning when he was getting ready to go to work he felt like heartburn- like sensation in the mid retrosternal region. He also had pain on bilateral arms associated with nausea and mild shortness of breath. He felt fuzzy and diaphoretic. Pain was getting worse which made him to come to ER. Patient states that he has been having fluttering of the heart on and off for the past couple of weeks. Chest pain did improve by the time he come to ER. Denied any complaints of fever or chills. No cough or sputum production. No leg swelling. Denied any recent illnesses or sick contacts. Family history of coronary artery disease in his mother at age 48 and patient does smoke daily. EKG showed sinus rhythm with ST-T wave abnormalities Chest x-ray showed no acute cardiopulmonary process Laboratory data showed WBC 8.0 hemoglobin 14.0 and platelets 283 D-dimer is 0.37 Sodium 138 potassium 4.7 GERD with grade bicarb is 17 BUN 14 and creatinine 0.74 A1c 6.2 LDL 102 TSH 1.43 Troponin 0.077 and 0.212. Cardiology was consulted and patient underwent catheterization today. This showed severe single-vessel coronary disease involving the proximal portion of the LAD. 03/03/2022 Patient is currently resting in the bed. Awake alert oriented 3. No further episodes of chest pain or shortness of breath. Patient did have some lightheadedness. Improved with Tylenol. Otherwise patient is Nitro Paste. Carotid Duplex Showed 50-70% stenosis in the left ICA. Echocardiogram showed ejection fraction 50-55%. Patient otherwise denied any nausea vomiting abdominal pain and diarrhea. No cough or sputum production. No other acute overnight issues. Patient is scheduled for coronary artery bypass graft on Saturday. 03/04/2022 Patient is resting in bed. Awake alert and oriented 3. No episodes of chest pain or shortness of breath overnight. No nausea vomiting or abdominal pain. No headache or dizziness or lightheadedness. No other acute overnight issues. Patient is scheduled for coronary revascularization tomorrow. Laboratory data reviewed. 03/05/2022 Patient is status post LAD/single-vessel coronary bypass graft. Postoperative day 0 Patient was transferred to MICU postsurgery. Currently intubated and on mechanical ventilator with assist control. Patient is also sedated and paralyzed. Laboratory data showed WBC 10.8 hemoglobin 11.8 and platelets 224 magnesium 1.9 Chest x-ray showed improved inspiration effort with streaky atelectasis in the left lung base postsurgical changes with lines and tubes in appropriate placement. No pneumothorax. current medications reviewed. Objective - Vital Signs Vital signs: Vital Signs Temp 99.0 F 03/05/22 20:00 Pulse 91 03/05/22 21:30 Resp 18 03/05/22 21:30 BP 128/70 03/05/22 21:30 Pulse Ox 94 L 03/05/22 21:30 FiO2 100 03/05/22 20:00 Intake & Output 03/05/22 03/05/22 03/06/22 06:59 18:59 06:59 Intake Total 1448 758.084 441.180 Output Total 3055 485 Balance 1448 -2296.916 -43.820 Weight 109.1 kg Intake: IV 100 613.5 309.5 Co/Ci 40 Lactated Ringers 1,000 ml 350 150 @ 50 mls/hr IV .Q20H R[facility] Rx#:[id number] Magnesium Sulfate-D5w Pmx 100 1 gm In Dextrose/Water 1 100ml.bag @ 100 mls/hr IVPB Q1H RICHA Rx#: [id number] Nitroglycerin-D5w Pmx 50 10.5 1.5 mg In Dextrose/Water 1 250ml.bag @ 5 MCG/MIN 1.5 mls/hr IV .Q24H RICHA Rx#: [id number] Potassium Chloride 10 meq 200 In Water For Injection 1 100ml.bag @ 100 mls/hr IVPB Q1H RICHA Rx#: [id number] ceFAZolin 2 gm In Sodium 50 Chloride 0.9% 50 ml @ 100 mls/hr IVPB Q8HR RICHA Rx# :[id number] pressure bag 18 Intake, IV Titration 948 144.584 131.680 Amount Cisatracurium 200 mg In 42.767 Sodium Chloride 0.9% 180 ml @ 1 MCG/KG/MIN 6.546 mls/hr IV .Q24H RICHA Rx#: [id number] Clevidipine Butyrate 25 40.834 80.833 mg In Empty Bag 1 bag @ 1 MG/HR 2 mls/hr IV .Q24H RICHA Rx#:[id number] Insulin Regular 100 unit 3.805 In Sodium Chloride 0.9% 100 ml @ Per Protocol IV .Q0M RICHA Rx#:[id number] Nitroglycerin-D5w Pmx 50 3.75 4.275 mg In Dextrose/Water 1 250ml.bag @ 5 MCG/MIN 1.5 mls/hr IV .Q24H RICHA Rx#: [id number] Sodium Chloride 0.9% 1, 300 000 ml @ 75 mls/hr IV . [id number] RIC[facility] Rx#:[id number] Sodium Chloride 0.9% 1, 648 000 ml In Empty Bag 1 bag @ 1 ML/KG/HR 99.79 mls/ hr IV .Q10H2M RIC[facility] Rx#: [id number] propofoL 1,000 mg In 100 Empty Bag 1 bag @ Titrate IV .Q0M RICHA Rx#: [id number] Oral 400 Output: Chest Tube Drainage 470 60 Chest Tube Bilateral 380 30 Lateral Chest Chest Tube Mediastinal 90 30 Urine 2285 425 Estimated Blood Loss 300 Other: Voiding Method Toilet Indwelling Catheter Indwelling Catheter Urinal ABP, PAP, CO, CI - Last Documented Arterial Blood Pressure 143/66 Pulmonary Artery Pressure 40/28 Cardiac Output 9.5 Cardiac Index 4.2 - Exam PHYSICAL EXAMINATION: Patient is intubated and on mechanical ventilator. Sedated... HEENT: Normocephalic. Neck is supple. Pupils reactive. Nostrils clear. Oral cavity is moist. Neck reveals no JVD, carotid bruits, or thyromegaly. CHEST EXAMINATION: Trachea is central. Symmetrical expansion. Bibasilar diminished sounds. Chest tubes in place. No wheezing or rhonchi.. CARDIAC: Normal S1, S2 with no gallops. No murmurs ABDOMEN: Soft. Bowel sounds present. Nontender. No organomegaly. No abdominal bruits. Extremities: reveal no edema. No clubbing or cyanosis Neurologically patient is sedated. No gross focal deficits noted Skin: No rash or skin lesions. Psychiatric: Could not be assessed at this time., Musculoskeletal: No joint swelling or deformity. - Labs CBC & Chem 7: 03/05/22 18:33 03/05/22 18:05 Labs: Abnormal Lab Results - Last 24 Hours (Table) 10/07/2503/05/22 03/05/22 Range/Units 05:50 08:35 10:34 WBC (3.8-10.6) k/uL RBC (4.30-5.90) m/uL Hgb (13.0-17.5) gm/dL Hct (39.0-53.0) % Neutrophils # (1.3-7.7) k/uL Lymphocytes # (1.0-4.8) k/uL ABG pH 7.34 L (7.35-7.45) ABG pCO2 (35-45) mmHg ABG pO2 192 H 118 H (83-108) mmHg ABG Total CO2 (19-24) mmol/L ABG O2 Saturation 99.2 H 98.2 H (94-97) % ABG Hematocrit (34.0-46.0) % ABG Glucose 109 H (75-99) mg/dL Hemoglobin 11.5 L 11.0 L (13.0-17.5) gm/dL Chloride (98-107) mmol/L POC Glucose (mg/dL) (70-110) mg/dL Calcium (8.4-10.2) mg/dL Total Protein (6.3-8.2) g/dL Albumin (3.5-5.0) g/dL Arterial Blood Glucose 109 H (75-99) mg/dL Crossmatch See Detail 03/05/22 03/05/22 03/05/22 Range/Units 10:54 12:27 12:27 WBC (3.8-10.6) k/uL RBC 3.26 L (4.30-5.90) m/uL Hgb 10.1 L (13.0-17.5) gm/dL Hct 28.5 L (39.0-53.0) % Neutrophils # (1.3-7.7) k/uL Lymphocytes # (1.0-4.8) k/uL ABG pH (7.35-7.45) ABG pCO2 (35-45) mmHg ABG pO2 (83-108) mmHg ABG Total CO2 25 H (19-24) mmol/L ABG O2 Saturation 98.0 H (94-97) % ABG Hematocrit 32 L (34.0-46.0) % ABG Glucose 110 H (75-99) mg/dL Hemoglobin 10.6 L (13.0-17.5) gm/dL Chloride 110 H (98-107) mmol/L POC Glucose (mg/dL) (70-110) mg/dL Calcium 7.7 L (8.4-10.2) mg/dL Total Protein 4.8 L (6.3-8.2) g/dL Albumin 3.0 L (3.5-5.0) g/dL Arterial Blood Glucose 110 H (75-99) mg/dL Crossmatch 03/05/22 03/05/22 03/05/22 Range/Units 12:40 14:09 15:16 WBC (3.8-10.6) k/uL RBC (4.30-5.90) m/uL Hgb (13.0-17.5) gm/dL Hct (39.0-53.0) % Neutrophils # (1.3-7.7) k/uL Lymphocytes # (1.0-4.8) k/uL ABG pH 7.33 L (7.35-7.45) ABG pCO2 46 H (35-45) mmHg ABG pO2 165 H 53 L* 126 H (83-108) mmHg ABG Total CO2 25 H 26 H 25 H (19-24) mmol/L ABG O2 Saturation 100.0 H 86.7 L 99.2 H (94-97) % ABG Hematocrit (34.0-46.0) % ABG Glucose (75-99) mg/dL Hemoglobin (13.0-17.5) gm/dL Chloride (98-107) mmol/L POC Glucose (mg/dL) (70-110) mg/dL Calcium (8.4-10.2) mg/dL Total Protein (6.3-8.2) g/dL Albumin (3.5-5.0) g/dL Arterial Blood Glucose (75-99) mg/dL Crossmatch 03/05/22 03/05/22 03/05/22 Range/Units 15:40 16:14 17:08 WBC 12.1 H (3.8-10.6) k/uL RBC 3.74 L (4.30-5.90) m/uL Hgb 11.6 L (13.0-17.5) gm/dL Hct 33.0 L (39.0-53.0) % Neutrophils # 10.0 H (1.3-7.7) k/uL Lymphocytes # (1.0-4.8) k/uL ABG pH (7.35-7.45) ABG pCO2 (35-45) mmHg ABG pO2 (83-108) mmHg ABG Total CO2 (19-24) mmol/L ABG O2 Saturation (94-97) % ABG Hematocrit (34.0-46.0) % ABG Glucose (75-99) mg/dL Hemoglobin (13.0-17.5) gm/dL Chloride (98-107) mmol/L POC Glucose (mg/dL) 111 H 115 H (70-110) mg/dL Calcium (8.4-10.2) mg/dL Total Protein (6.3-8.2) g/dL Albumin (3.5-5.0) g/dL Arterial Blood Glucose (75-99) mg/dL Crossmatch 03/05/22 03/05/22 03/05/22 Range/Units 18:06 18:33 19:12 WBC 14.8 H (3.8-10.6) k/uL RBC 3.77 L (4.30-5.90) m/uL Hgb 11.8 L (13.0-17.5) gm/dL Hct 33.4 L (39.0-53.0) % Neutrophils # 12.9 H (1.3-7.7) k/uL Lymphocytes # 0.9 L (1.0-4.8) k/uL ABG pH (7.35-7.45) ABG pCO2 (35-45) mmHg ABG pO2 (83-108) mmHg ABG Total CO2 (19-24) mmol/L ABG O2 Saturation (94-97) % ABG Hematocrit (34.0-46.0) % ABG Glucose (75-99) mg/dL Hemoglobin (13.0-17.5) gm/dL Chloride (98-107) mmol/L POC Glucose (mg/dL) 123 H 131 H (70-110) mg/dL Calcium (8.4-10.2) mg/dL Total Protein (6.3-8.2) g/dL Albumin (3.5-5.0) g/dL Arterial Blood Glucose (75-99) mg/dL Crossmatch 03/05/22 03/05/22 03/05/22 Range/Units 20:04 21:05 22:07 WBC (3.8-10.6) k/uL RBC (4.30-5.90) m/uL Hgb (13.0-17.5) gm/dL Hct (39.0-53.0) % Neutrophils # (1.3-7.7) k/uL Lymphocytes # (1.0-4.8) k/uL ABG pH (7.35-7.45) ABG pCO2 (35-45) mmHg ABG pO2 (83-108) mmHg ABG Total CO2 (19-24) mmol/L ABG O2 Saturation (94-97) % ABG Hematocrit (34.0-46.0) % ABG Glucose (75-99) mg/dL Hemoglobin (13.0-17.5) gm/dL Chloride (98-107) mmol/L POC Glucose (mg/dL) 130 H 138 H 161 H (70-110) mg/dL Calcium (8.4-10.2) mg/dL Total Protein (6.3-8.2) g/dL Albumin (3.5-5.0) g/dL Arterial Blood Glucose (75-99) mg/dL Crossmatch Assessment and Plan Assessment: Acute non-ST elevated MD cath Showed severe LAD proximal stenosis. Status post coronary revascularization single-vessel. Postoperative day 0. Severe single-vessel CAD involving the proximal LAD. Hyperlipidemia Hypertension Ongoing nicotine addiction Family history of premature coronary artery disease DVT prophylaxis Plan: Patient is status post CABG., Single-vessel. Intubated perioperatively. transferred to MICU postsurgery. Patient is paralyzed. Critical care team on board. Continue current management. Follow-up closely. . Time with Patient: Greater than 30
[2022-03-06] MEDS: KETOROLAC 15 MG/ML 1 ML VIAL IVP SCH ×5 (00:28→23:50)
[2022-03-06] MEDS: ACETAMINOPHEN IV (For NPO) 1,000 MG in EMPTY BAG 1 BAG IVPB SCH (00:29)
[2022-03-06] MEDS: HEPARIN SODIUM,PORCINE/PF 5,000 UNIT/0.5 ML SYRINGE SQ SCH ×4 (00:29→23:56)
[2022-03-06] MEDS: ARTIFICIAL TEARS-HYPROMELLOSE DROPS 15 ML BTL BOTH EYES SCH ×5 (00:30→16:15)
[2022-03-06] MEDS ORDERED: HYDROcodone/APAP 5-325MG 1 EACH TAB PO PRN (00:32)
[2022-03-06 01:08] LABS: Glucose,Whole Blood 140 mg/dL (70-110)
[2022-03-06 02:00] LABS: Glucose,Whole Blood 131 mg/dL (70-110)
[2022-03-06 03:13] LABS: Glucose,Whole Blood 130 mg/dL (70-110)
[2022-03-06 04:20] LABS: Glucose,Whole Blood 126 mg/dL (70-110)
[2022-03-06 04:30] LABS: Basophils % (A) 0 %; Eosinophils # (A) 0.2 k/uL (0-0.7); Eosinophils % (A) 2 %; HCT 32.6 % (39.0-53.0); HGB 11.5 gm/dL (13.0-17.5); Lymphocytes # (A) 1.4 k/uL (1.0-4.8); Lymphocytes % (A) 13 %; MCH 31.4 pg (25.0-35.0); MCHC 35.2 g/dL (31.0-37.0); MCV 89.3 fL (80.0-100.0); Mean Platelet Volume 7.9; Monocytes # (A) 0.7 k/uL (0-1.0); Monocytes % (A) 7 %; Neutrophils # (A) 8.3 k/uL (1.3-7.7); Neutrophils % (A) 77 %; Platelet Count 198 k/uL (150-450); RBC 3.65 m/uL (4.30-5.90); RDW 13.2 % (11.5-15.5); WBC 10.8 k/uL (3.8-10.6)
[2022-03-06 04:40] LABS: Ionized Calcium 4.8 mg/dL (4.5-5.3)
[2022-03-06 04:56] LABS: ALT 37 U/L (4-49); AST 41 U/L (17-59); African American GFR (CKD) >90 (>60 ml/min/1.73 sqM); Albumin 3.4 g/dL (3.5-5.0); Alkaline Phosphatase 46 U/L (38-126); Anion Gap 8 mmol/L; Blood Urea Nitrogen 8 mg/dL (9-20); Calcium 7.9 mg/dL (8.4-10.2); Carbon Dioxide 24 mmol/L (22-30); Chloride 103 mmol/L (98-107); Glucose 118 mg/dL (74-99); Magnesium 2.5 mg/dL (1.6-2.3); Non-African American GFR(CKD) >90 (>60 ml/min/1.73 sqM); Potassium 4.6 mmol/L (3.5-5.1); Sodium 135 mmol/L (137-145); Total Bilirubin 0.3 mg/dL (0.2-1.3); Total Protein 5.4 g/dL (6.3-8.2)
[2022-03-06 06:02] LABS: ABG Base Excess 1.5 mmol/L; ABG HCO3 27 mmol/L (21-25); ABG Oxygen Saturation 99.7 % (94-97); ABG PCO2 50 mmHg (35-45); ABG PH 7.35 (7.35-7.45); ABG PO2 160 mmHg (83-108); ABG TCO2 29 mmol/L (19-24); Allen Test Performed? Yes
[2022-03-06 06:26] LABS: Glucose,Whole Blood 120 mg/dL (70-110)
[2022-03-06 07:13] LABS: Glucose,Whole Blood 121 mg/dL (70-110)
[2022-03-06] MEDS: IPRATROPIUM-ALBUTEROL 3 ML NEB INHALATION SCH ×4 (07:55→19:28)
--- NOTE | 2022-03-06 07:55 | US ---
EXAMINATION TYPE: US arterial LE single level DATE OF EXAM: 03/02/2022 9:54 PM CLINICAL HISTORY: Ankle Brachial Index (PILI) . Pre-Op cardiac surgery. Current smoker. Hx hypertensio n, hyperlipidemia. Right brachial pressure deferred due to right radial heart cath approach. Doppler Waveforms: Right: Multiphasic Left: Multiphasic Ankle-Brachial Indices: Right: 1.13 Left: 1.20 Toe Brachial Indices: Right: 1.04 Left: 0.94 IMPRESSION: Normal study.
[2022-03-06 08:12] LABS: Glucose,Whole Blood 124 mg/dL (70-110)
[2022-03-06] MEDS: CLOPIDOGREL 75 MG TAB PO SCH (08:46)
[2022-03-06] MEDS: ASPIRIN 325 MG TAB PO SCH (08:46)
[2022-03-06] MEDS: ATORVASTATIN 40 MG TAB PO SCH (08:46)
--- NOTE | 2022-03-06 08:46 | XR ---
EXAMINATION TYPE: XR chest 1V portable DATE OF EXAM: 03/06/2022 COMPARISON: 03/05/2022 HISTORY: Postop TECHNIQUE: Single frontal view of the chest is obtained. FINDINGS: ET and NG tube noted. Tip of the ET tube seen approximately 4.9 cm above akil. [place]-Meaghan catheter seen with the tip overlying the proximal pulmonary outflow tract there is a mediastinal rosemarie in and chest tubes. No sizable pneumothorax. There is a diffuse interstitial pattern with small bilat eral effusions and bibasilar consolidation. Postsurgical changes noted. IMPRESSION: Postoperative changes correlate for venous congestion and small bilateral effusions. Bas ilar atelectasis versus infiltrate. Findings stable.
[2022-03-06] MEDS: MUPIROCIN 2% OINT 22 GM TUBE NASAL SCH ×2 (08:47→20:45)
[2022-03-06] MEDS: CHLORHEXIDINE GLUCONATE 15 ML CUP MUCOUS MEM SCH (08:47)
[2022-03-06] MEDS ORDERED: bisacodyL 10 MG SUPP RECTAL PRN (09:00)
[2022-03-06] MEDS ORDERED: MAGNESIUM HYDROXIDE 2,400 MG/10 ML CUP PO PRN (09:00)
[2022-03-06] MEDS ORDERED: PANTOPRAZOLE 40 MG/10 ML VIAL IVP SCH (09:00)
--- NOTE | 2022-03-06 09:18 | P.PN ---
Subjective Progress Note Date: 03/06/22 Principal diagnosis: Coronary artery disease, non-ST elevated myocardial infarction this admission. Past medical history significant for hyperlipidemia, hypertension, depression, chronic ongoing tobacco dependence and a family history of early onset coronary artery disease with his mother having a myocardial infarction at age 48. The patient also has a history of colon polyps and has recently been having episodes of diarrhea with occasional bloody stools 1-2 times per month. POD #1 off-pump coronary artery bypass grafting 1 vessel, left internal mammary artery to left anterior descending coronary artery, lysis of adhesions, graft flow measurements using the Medistim system, and intraoperative transesophageal echocardiogram completed by anesthesia. Postoperative acute blood loss anemia, expected due to hemodilution. The patient was seen and examined in follow-up today 03/06/2022 at his bedside in the intensive care unit. He remains intubated with mechanical ventilator support and is currently sedated on propofol drip at 50 mcg/kg/m. Nimbex drip is currently on hold. Bedside telemetry showing normal sinus rhythm heart rate 71 BPM. Right IJ Cordis and [place] catheter remains in place with current hemodynamic showing a cardiac output of 6.5, cardiac index 2.9, PA pressures 31/23 and CVP 13 mmHg. He remains hemodynamically stable and is currently on no inotropic or pressor support. Mediastinal, right and left pleural chest tubes remain in place to low continuous wall suction -20 cm H2O. No air leak is present. Draining thin serosanguineous drainage with mediastinal chest tube draining 105 mL output in the last 8 hours and 240 mL output since surgery. Left pleural chest tube and right Erasto drain draining thin serosanguineous drainage with 40 mL output in the last 8 hours and 440 mL output since surgery. Laboratory results show a WBC count of 10.8, hemoglobin 11.5, hematocrit 32.6, platelets 198, sodium 135, potassium 4.6, chloride 103, CO2 24, BUN 8, creatinine 0.67, glucose 118, calcium 7.9, ionized calcium 4.8, and magnesium 2.5. Oxygen saturations are 98% on current mechanical ventilator settings. Current mechanical ventilator settings are assist control 16, TV 550, FiO2 50% and a PEEP of 13. Objective - Vital Signs Vital signs: Vital Signs Temp 98.6 F 03/06/22 04:00 Pulse 73 03/06/22 08:07 Resp 16 03/06/22 07:00 BP 97/53 03/06/22 07:00 Pulse Ox 98 03/06/22 07:00 FiO2 50 03/06/22 07:51 Intake & Output 03/05/22 03/06/22 03/06/22 18:59 06:59 18:59 Intake Total 084.221 5573.109 138 Output Total 3055 1899 120 Balance -2296.916 -518.891 18 Weight 112 kg Intake: IV 613.5 990.5 138 Co/Ci 90 20 Lactated Ringers 1,000 ml 350 600 100 @ 50 mls/hr IV .Q20H [facility] Rx#:[id number] Magnesium Sulfate-D5w Pmx 200 1 gm In Dextrose/Water 1 100ml.bag @ 100 mls/hr IVPB Q1H R[facility] Rx#: [id number] Nitroglycerin-D5w Pmx 50 10.5 1.5 mg In Dextrose/Water 1 250ml.bag @ 5 MCG/MIN 1.5 mls/hr IV .Q24H RICHA Rx#: [id number] Potassium Chloride 10 meq 200 In Water For Injection 1 100ml.bag @ 100 mls/hr IVPB Q1H [facility] Rx#: [id number] ceFAZolin 2 gm In Sodium 50 Chloride 0.9% 50 ml @ 100 mls/hr IVPB Q8HR RIC[facility] Rx# :[id number] pressure bag 99 18 Intake, IV Titration 144.584 389.609 Amount Cisatracurium 200 mg In 84.007 Sodium Chloride 0.9% 180 ml @ 1 MCG/KG/MIN 6.546 mls/hr IV .Q24H [facility] Rx#: [id number] Clevidipine Butyrate 25 40.834 94.267 mg In Empty Bag 1 bag @ 1 MG/HR 2 mls/hr IV .Q24H RIC[facility] Rx#:[id number] Insulin Regular 100 unit 14.325 In Sodium Chloride 0.9% 100 ml @ Per Protocol IV .Q0M R[facility] Rx#:[id number] Nitroglycerin-D5w Pmx 50 3.75 4.275 mg In Dextrose/Water 1 250ml.bag @ 5 MCG/MIN 1.5 mls/hr IV .Q24H RIC[facility] Rx#: [id number] propofoL 1,000 mg In 100 192.735 Empty Bag 1 bag @ Titrate IV .Q0M [facility] Rx#: [id number] Output: Chest Tube Drainage 470 224 10 Chest Tube Bilateral 380 80 0 Lateral Chest Chest Tube Mediastinal 90 144 10 Urine 2285 1675 110 Estimated Blood Loss 300 Other: Voiding Method Indwelling Catheter Indwelling Catheter ABP, PAP, CO, CI - Last Documented Arterial Blood Pressure 116/58 Pulmonary Artery Pressure 32/23 Cardiac Output 6.5 Cardiac Index 2.9 - Exam CONSTITUTIONAL: Laying in bed in the intensive care unit, remained intubated with mechanical ventilator support. Remains sedated on propofol drip. No appar ent acute distress. HEENT: Neck is supple, no JVD, no lymphadenopathy. Right IJ Cordis and [place]-Behtanie z catheter in place and functioning. RESPIRATORY: Lungs sounds essentially clear throughout, diminished to his bilateral bases. Respirations are symmetrical and nonlabored with mechanical ventilator support . mechanical ventilator settings are assist control 16, TV 550, FiO2 50% and a PEEP of 13, current oxygen saturation are 98%. CARDIOVASCULAR: Regular rhythm and rate. S1 and S2 present, negative for S3, gallop or murmur. Sternum is stable. Palpable peripheral pulses bilaterally, no edema to his bilateral lower extremities. No calf pain or tenderness noted. Heart hugger in place. Knee-high RAMYA hose and sequential compression devices in place to his bilateral lower extremities. GASTROINTESTINAL: Abdomen soft, nontender, nondistended. Hypoactive bowel sounds present 4 quadrants. No guarding or rigidity. OG tube in place to low intermittent wall suction. GENITOURINARY: Rodriguez present draining clear, yellow urine. Urine output 1350 in the last 8 hours INTEGUMENTARY: Skin is warm and dry with no evidence of clubbing or cyanosis. Midline sternal incision clean dry and well approximated, covered with dry intact dressing. lower extremity EVH sites well approximated without redness or drainage. Left arm radial artery harvest sites clean, dry and approximated. No drainage or redness is present. NEUROLOGIC: Unable to accurately assess at this time as the patient remains sedated on propofol drip. MUSKULOSKELETAL: Unable to accurately assess at this time as the patient remains sedated on propofol drip. PSYCHIATRIC: Unable to accurately assess at this time as the patient remains sedated on propofol drip. INVASIVE LINES AND TUBES: Mediastinal/left pleural chest tube and right pleural Erasto drain present and connected to low continuous wall suction, no air leaks present. Mediastinal chest tube with 105 mL of thin serosanguineous drainage over night, and 240 mL since surgery. Left pleural chest tube and right pleural Erasto drain with 40 mL of thin serosanguineous drainage overnight, 440m output since surgery. - Allied health notes Allied health notes reviewed: nursing - Labs CBC & Chem 7: 03/06/22 04:21 03/06/22 04:21 Labs: Abnormal Lab Results - Last 24 Hours (Table) 03/04/22 03/05/22 03/05/22 Range/Units 05:50 08:35 10:34 WBC (3.8-10.6) k/uL RBC (4.30-5.90) m/uL Hgb (13.0-17.5) gm/dL Hct (39.0-53.0) % Neutrophils # (1.3-7.7) k/uL Lymphocytes # (1.0-4.8) k/uL ABG pH 7.34 L (7.35-7.45) ABG pCO2 (35-45) mmHg ABG pO2 192 H 118 H (83-108) mmHg ABG HCO3 (21-25) mmol/L ABG Total CO2 (19-24) mmol/L ABG O2 Saturation 99.2 H 98.2 H (94-97) % ABG Hematocrit (34.0-46.0) % ABG Glucose 109 H (75-99) mg/dL Hemoglobin 11.5 L 11.0 L (13.0-17.5) gm/dL Sodium (137-145) mmol/L Chloride (98-107) mmol/L BUN (9-20) mg/dL Glucose (74-99) mg/dL POC Glucose (mg/dL) (70-110) mg/dL Calcium (8.4-10.2) mg/dL Magnesium (1.6-2.3) mg/dL Total Protein (6.3-8.2) g/dL Albumin (3.5-5.0) g/dL Arterial Blood Glucose 109 H (75-99) mg/dL Crossmatch See Detail 03/05/22 03/05/22 03/05/22 Range/Units 10:54 12:27 12:27 WBC (3.8-10.6) k/uL RBC 3.26 L (4.30-5.90) m/uL Hgb 10.1 L (13.0-17.5) gm/dL Hct 28.5 L (39.0-53.0) % Neutrophils # (1.3-7.7) k/uL Lymphocytes # (1.0-4.8) k/uL ABG pH (7.35-7.45) ABG pCO2 (35-45) mmHg ABG pO2 (83-108) mmHg ABG HCO3 (21-25) mmol/L ABG Total CO2 25 H (19-24) mmol/L ABG O2 Saturation 98.0 H (94-97) % ABG Hematocrit 32 L (34.0-46.0) % ABG Glucose 110 H (75-99) mg/dL Hemoglobin 10.6 L (13.0-17.5) gm/dL Sodium (137-145) mmol/L Chloride 110 H (98-107) mmol/L BUN (9-20) mg/dL Glucose (74-99) mg/dL POC Glucose (mg/dL) (70-110) mg/dL Calcium 7.7 L (8.4-10.2) mg/dL Magnesium (1.6-2.3) mg/dL Total Protein 4.8 L (6.3-8.2) g/dL Albumin 3.0 L (3.5-5.0) g/dL Arterial Blood Glucose 110 H (75-99) mg/dL Crossmatch 03/05/22 03/05/22 03/05/22 Range/Units 12:40 14:09 15:16 WBC (3.8-10.6) k/uL RBC (4.30-5.90) m/uL Hgb (13.0-17.5) gm/dL Hct (39.0-53.0) % Neutrophils # (1.3-7.7) k/uL Lymphocytes # (1.0-4.8) k/uL ABG pH 7.33 L (7.35-7.45) ABG pCO2 46 H (35-45) mmHg ABG pO2 165 H 53 L* 126 H (83-108) mmHg ABG HCO3 (21-25) mmol/L ABG Total CO2 25 H 26 H 25 H (19-24) mmol/L ABG O2 Saturation 100.0 H 86.7 L 99.2 H (94-97) % ABG Hematocrit (34.0-46.0) % ABG Glucose (75-99) mg/dL Hemoglobin (13.0-17.5) gm/dL Sodium (137-145) mmol/L Chloride (98-107) mmol/L BUN (9-20) mg/dL Glucose (74-99) mg/dL POC Glucose (mg/dL) (70-110) mg/dL Calcium (8.4-10.2) mg/dL Magnesium (1.6-2.3) mg/dL Total Protein (6.3-8.2) g/dL Albumin (3.5-5.0) g/dL Arterial Blood Glucose (75-99) mg/dL Crossmatch 03/05/22 03/05/22 03/05/22 Range/Units 15:40 16:14 17:08 WBC 12.1 H (3.8-10.6) k/uL RBC 3.74 L (4.30-5.90) m/uL Hgb 11.6 L (13.0-17.5) gm/dL Hct 33.0 L (39.0-53.0) % Neutrophils # 10.0 H (1.3-7.7) k/uL Lymphocytes # (1.0-4.8) k/uL ABG pH (7.35-7.45) ABG pCO2 (35-45) mmHg ABG pO2 (83-108) mmHg ABG HCO3 (21-25) mmol/L ABG Total CO2 (19-24) mmol/L ABG O2 Saturation (94-97) % ABG Hematocrit (34.0-46.0) % ABG Glucose (75-99) mg/dL Hemoglobin (13.0-17.5) gm/dL Sodium (137-145) mmol/L Chloride (98-107) mmol/L BUN (9-20) mg/dL Glucose (74-99) mg/dL POC Glucose (mg/dL) 111 H 115 H (70-110) mg/dL Calcium (8.4-10.2) mg/dL Magnesium (1.6-2.3) mg/dL Total Protein (6.3-8.2) g/dL Albumin (3.5-5.0) g/dL Arterial Blood Glucose (75-99) mg/dL Crossmatch 03/05/22 03/05/22 03/05/22 Range/Units 18:06 18:33 19:12 WBC 14.8 H (3.8-10.6) k/uL RBC 3.77 L (4.30-5.90) m/uL Hgb 11.8 L (13.0-17.5) gm/dL Hct 33.4 L (39.0-53.0) % Neutrophils # 12.9 H (1.3-7.7) k/uL Lymphocytes # 0.9 L (1.0-4.8) k/uL ABG pH (7.35-7.45) ABG pCO2 (35-45) mmHg ABG pO2 (83-108) mmHg ABG HCO3 (21-25) mmol/L ABG Total CO2 (19-24) mmol/L ABG O2 Saturation (94-97) % ABG Hematocrit (34.0-46.0) % ABG Glucose (75-99) mg/dL Hemoglobin (13.0-17.5) gm/dL Sodium (137-145) mmol/L Chloride (98-107) mmol/L BUN (9-20) mg/dL Glucose (74-99) mg/dL POC Glucose (mg/dL) 123 H 131 H (70-110) mg/dL Calcium (8.4-10.2) mg/dL Magnesium (1.6-2.3) mg/dL Total Protein (6.3-8.2) g/dL Albumin (3.5-5.0) g/dL Arterial Blood Glucose (75-99) mg/dL Crossmatch 03/05/22 03/05/22 03/05/22 Range/Units 20:04 21:05 22:07 WBC (3.8-10.6) k/uL RBC (4.30-5.90) m/uL Hgb (13.0-17.5) gm/dL Hct (39.0-53.0) % Neutrophils # (1.3-7.7) k/uL Lymphocytes # (1.0-4.8) k/uL ABG pH (7.35-7.45) ABG pCO2 (35-45) mmHg ABG pO2 (83-108) mmHg ABG HCO3 (21-25) mmol/L ABG Total CO2 (19-24) mmol/L ABG O2 Saturation (94-97) % ABG Hematocrit (34.0-46.0) % ABG Glucose (75-99) mg/dL Hemoglobin (13.0-17.5) gm/dL Sodium (137-145) mmol/L Chloride (98-107) mmol/L BUN (9-20) mg/dL Glucose (74-99) mg/dL POC Glucose (mg/dL) 130 H 138 H 161 H (70-110) mg/dL Calcium (8.4-10.2) mg/dL Magnesium (1.6-2.3) mg/dL Total Protein (6.3-8.2) g/dL Albumin (3.5-5.0) g/dL Arterial Blood Glucose (75-99) mg/dL Crossmatch 03/05/22 03/06/22 03/06/22 Range/Units 23:03 00:12 01:07 WBC (3.8-10.6) k/uL RBC (4.30-5.90) m/uL Hgb (13.0-17.5) gm/dL Hct (39.0-53.0) % Neutrophils # (1.3-7.7) k/uL Lymphocytes # (1.0-4.8) k/uL ABG pH (7.35-7.45) ABG pCO2 (35-45) mmHg ABG pO2 (83-108) mmHg ABG HCO3 (21-25) mmol/L ABG Total CO2 (19-24) mmol/L ABG O2 Saturation (94-97) % ABG Hematocrit (34.0-46.0) % ABG Glucose (75-99) mg/dL Hemoglobin (13.0-17.5) gm/dL Sodium (137-145) mmol/L Chloride (98-107) mmol/L BUN (9-20) mg/dL Glucose (74-99) mg/dL POC Glucose (mg/dL) 134 H 137 H 140 H (70-110) mg/dL Calcium (8.4-10.2) mg/dL Magnesium (1.6-2.3) mg/dL Total Protein (6.3-8.2) g/dL Albumin (3.5-5.0) g/dL Arterial Blood Glucose (75-99) mg/dL Crossmatch 03/06/22 03/06/22 03/06/22 Range/Units 01:59 03:10 04:18 WBC (3.8-10.6) k/uL RBC (4.30-5.90) m/uL Hgb (13.0-17.5) gm/dL Hct (39.0-53.0) % Neutrophils # (1.3-7.7) k/uL Lymphocytes # (1.0-4.8) k/uL ABG pH (7.35-7.45) ABG pCO2 (35-45) mmHg ABG pO2 (83-108) mmHg ABG HCO3 (21-25) mmol/L ABG Total CO2 (19-24) mmol/L ABG O2 Saturation (94-97) % ABG Hematocrit (34.0-46.0) % ABG Glucose (75-99) mg/dL Hemoglobin (13.0-17.5) gm/dL Sodium (137-145) mmol/L Chloride (98-107) mmol/L BUN (9-20) mg/dL Glucose (74-99) mg/dL POC Glucose (mg/dL) 131 H 130 H 126 H (70-110) mg/dL Calcium (8.4-10.2) mg/dL Magnesium (1.6-2.3) mg/dL Total Protein (6.3-8.2) g/dL Albumin (3.5-5.0) g/dL Arterial Blood Glucose (75-99) mg/dL Crossmatch 03/06/22 03/06/22 03/06/22 Range/Units 04:21 04:21 06:00 WBC 10.8 H (3.8-10.6) k/uL RBC 3.65 L (4.30-5.90) m/uL Hgb 11.5 L (13.0-17.5) gm/dL Hct 32.6 L (39.0-53.0) % Neutrophils # 8.3 H (1.3-7.7) k/uL Lymphocytes # (1.0-4.8) k/uL ABG pH (7.35-7.45) ABG pCO2 50 H (35-45) mmHg ABG pO2 160 H (83-108) mmHg ABG HCO3 27 H (21-25) mmol/L ABG Total CO2 29 H (19-24) mmol/L ABG O2 Saturation 99.7 H (94-97) % ABG Hematocrit (34.0-46.0) % ABG Glucose (75-99) mg/dL Hemoglobin (13.0-17.5) gm/dL Sodium 135 L (137-145) mmol/L Chloride (98-107) mmol/L BUN 8 L (9-20) mg/dL Glucose 118 H (74-99) mg/dL POC Glucose (mg/dL) (70-110) mg/dL Calcium 7.9 L (8.4-10.2) mg/dL Magnesium 2.5 H (1.6-2.3) mg/dL Total Protein 5.4 L (6.3-8.2) g/dL Albumin 3.4 L (3.5-5.0) g/dL Arterial Blood Glucose (75-99) mg/dL Crossmatch 03/06/22 03/06/22 03/06/22 Range/Units 06:24 07:12 08:11 WBC (3.8-10.6) k/uL RBC (4.30-5.90) m/uL Hgb (13.0-17.5) gm/dL Hct (39.0-53.0) % Neutrophils # (1.3-7.7) k/uL Lymphocytes # (1.0-4.8) k/uL ABG pH (7.35-7.45) ABG pCO2 (35-45) mmHg ABG pO2 (83-108) mmHg ABG HCO3 (21-25) mmol/L ABG Total CO2 (19-24) mmol/L ABG O2 Saturation (94-97) % ABG Hematocrit (34.0-46.0) % ABG Glucose (75-99) mg/dL Hemoglobin (13.0-17.5) gm/dL Sodium (137-145) mmol/L Chloride (98-107) mmol/L BUN (9-20) mg/dL Glucose (74-99) mg/dL POC Glucose (mg/dL) 120 H 121 H 124 H (70-110) mg/dL Calcium (8.4-10.2) mg/dL Magnesium (1.6-2.3) mg/dL Total Protein (6.3-8.2) g/dL Albumin (3.5-5.0) g/dL Arterial Blood Glucose (75-99) mg/dL Crossmatch - Imaging and Cardiology Chest x-ray: report reviewed, image reviewed Assessment and Plan Assessment: 1. Coronary artery disease with a 90% stenosis to his proximal left anterior descending coronary artery, status post coronary artery bypass grafting surgery 1 2. Non-ST elevated myocardial infarction this admission 3. Hypertension 4. Hyperlipidemia 5. History of depression 6. Chronic ongoing tobacco dependence smokes 1 pack of cigarettes per day 7. Frequent episodes of diarrhea with occasional bloody stools 1-2 times per month 8. Left internal carotid artery stenosis 50-70% per carotid duplex study 9. Postoperative acute blood loss anemia, expected due to hemodilution Plan: 1. Continue to maximize medical therapy with full strength aspirin, statin, Plavix and beta shahid. We will increase metoprolol tartrate as tolerated. 2. Discontinue nitroglycerin drip. 3. Mechanical ventilator settings management and propofol drip management per pulmonary/critical care service. Once extubated encourage incentive spirometry 10 times every hour while awake. Bronchodilators per pulmonology. 4. Once extubated increase activity, ambulate as tolerated. PT/OT/cardiac rehab consulted. 5. Will monitor daily labs and chest x-ray. Electrolyte replacement per protocol. 6. Pain control with current medication regimen. Toradol added for additional pain control. 7. Insulin management per internal medicine. Patient is not diabetic, preoperative hemaglobin A1c 6.2%. 8. Once the patient is extubated we will discontinue swan, connect cordis to continuous CVP monitoring. 9. Continue chest tubes to low continuous wall suction -20 cm H2O for another 24 hours. 10. Continue rodriguez for another 24 hours for strict accurate intake and output. Daily weights. 11. More recommendations to follow based on patient's clinical course Time with Patient: Greater than 30
[2022-03-06] MEDS: VORTIOXETINE HYDROBROMIDE 10 MG TABLET PO SCH (09:42)
[2022-03-06] MEDS ORDERED: DEXMEDETOMIDINE/0.9% NACL(PMX) 400 MCG in EMPTY BAG 1 BAG IV SCH (11:00)
[2022-03-06] MEDS: ALBUMIN HUMAN 5% 250 ML in EMPTY BAG 1 BAG IVPB PRN ×2 (11:27→11:55)
--- NOTE | 2022-03-06 11:43 | P.PN ---
Subjective Progress Note Date: 03/06/22 Principal diagnosis: Status post single-vessel bypass. Coronary artery disease, scheduled for CABG in a.m. This is a 46-year-old white male, [id number] smoking history, known history of dyslipidemia, strong family history of coronary artery disease, mother had MO in her 40s, patient presented to the ER with chest discomfort. Patient felt that the pain was left-sided, radiating to upper extremities, it was associated with slight shortness of breath and nausea/diaphoresis. Patient was seen by cardiology and felt to have non-ST elevation myocardial infarction. Patient un derwent cardiac catheterization, he was found to have significant extensive LAD disease, patient was advised by cardiology to have myocardial revascularization, and this is scheduled to be done next Saturday. We were asked to see the patient on consultation for pulmonary clearance. Patient doesn't smoke, and he denies any symptoms of cough wheezing or shortness of breath. Never been diagnosed wit h COPD, not on any inhalers. Patient has been quite active able to walk a mile easily and able to climb a few flights of stairs without any difficulty. Again he had no previous documented pulmonary bedside PFT is pending Reevaluated today on 03/06/22, patient is doing great, asymptomatic, in no di stress, scheduled for myocardial revascularization in a.m. Progress note dated 03/05/2022. Today is postop day #0, status post SAHU to LAD single-vessel off-pump bypass. The patient came back to the ICU, and room 264, and initially, he was on the volume assist control, rate 16, tidal volume 550, FiO2 100%, and PEEP of 10. Initial blood gases showed a pO2 of 165, pCO2 of 40, pH is 7.38. FiO2 was dropped down to 40%. Subsequent to that, the patient's saturations dropped down into the 80s and even high 70s. A repeat blood gas showed a pO2 of 53, pCO2 of 46, and pH is 7.33. The patient was increased back up to 100%. Currently, the patient's on IV nitroglycerin at 5 mcg/m, propofol at 50 mcg/kg/m, and Cleveprex at 2 mg an hour. I was called down to the intensive care unit, because of the low saturations. I assessed the patient at the bedside. The chest x-ray initially looked better than the subsequent chest x-ray which seemed to show some bilateral infiltrates. Could relate to pulmonary edema. In addition, I felt endotracheal tube she be pushed down 1 cm. Also, I decided to paralyzed the patient, giving him 10 mg a Nimbex IV push, and then a drip at 2 mcg/kg/m, with the idea that we would keep him paralyzed, overnight, and work on getting him extubated in the morning. Additional labs today include a white count of 8.9, hemoglobin 10.1, hematocrit 28.5, and a platelet count of 289,000. Sodium 140, potassium 3.8, chlorides 110, CO2 22, with a normal anion gap, BUN, and creatinine. All x-rays from today were reviewed. Progress note dated 03/06/2022. Today is postop day #1, status post SAHU to LAD single-vessel, off pump bypass. The patient is seen today in room 264. Initially, his saturations are quite low, we had the sedating and paralyzing him, to control him over the evening. Currently, he is on the volume assist control, rate of 16, tidal volume 550, FiO2 50%, and PEEP of 13. The PEEP will be dropped from 13 to 10. Blood gases show a PaO2 of 160, pCO2 49, and a pH is 7.34. Those blood gases were done on 60%. Currently, the patient is on lactated Ringer's at 50 mL an hour, insulin drip at 0.5 units an hour, and propofol at 50 mcg/kg/m. Earlier this morning, I called the ICU and had them turn off the Nimbex. The patient's cardiac output is 7.3 with an index of 3.2. White count 10.8, hemoglobin 11.5, hematocrit 32.6, with a platelet count of 198,000. Sodium 135, potassium 4.6, chlorides 103, CO2 24, BUN 8, creatinine 0.67. Chest x-ray shows changes of venous congestion, and small bilateral effusions, with some bibasilar atelectasis. Objective - Vital Signs Vital signs: Vital Signs Temp 98.2 F 03/06/22 08:00 Pulse 87 03/06/22 11:20 Resp 22 03/06/22 11:20 BP 99/63 03/06/22 11:20 Pulse Ox 93 L 03/06/22 11:20 FiO2 70 03/06/22 11:15 Intake & Output 03/05/22 03/06/22 03/06/22 18:59 06:59 18:59 Intake Total 531.200 2763.109 327.307 Output Total 3055 1899 335 Balance -2296.916 -518.891 -7.693 Weight 112 kg 112 kg Intake: IV 613.5 990.5 326 Co/Ci 90 40 Lactated Ringers 1,000 ml 350 600 200 @ 50 mls/hr IV .Q20H RICHA Rx#:[id number] Magnesium Sulfate-D5w Pmx 200 1 gm In Dextrose/Water 1 100ml.bag @ 100 mls/hr IVPB Q1H RICHA Rx#: [id number] Nitroglycerin-D5w Pmx 50 10.5 1.5 mg In Dextrose/Water 1 250ml.bag @ 5 MCG/MIN 1.5 mls/hr IV .Q24H RICHA Rx#: [id number] Potassium Chloride 10 meq 200 In Water For Injection 1 100ml.bag @ 100 mls/hr IVPB Q1H RICHA Rx#: [id number] ceFAZolin 2 gm In Sodium 50 50 Chloride 0.9% 50 ml @ 100 mls/hr IVPB Q8HR RICHA Rx# :[id number] pressure bag 99 36 Intake, IV Titration 144.584 389.609 1.307 Amount Cisatracurium 200 mg In 84.007 Sodium Chloride 0.9% 180 ml @ 1 MCG/KG/MIN 6.546 mls/hr IV .Q24H RICHA Rx#: [id number] Clevidipine Butyrate 25 40.834 94.267 mg In Empty Bag 1 bag @ 1 MG/HR 2 mls/hr IV .Q24H RICHA Rx#:[id number] Dexmedetomidine/0.9% NaCl 1.307 (Pmx) 400 mcg In Empty Bag 1 bag @ 0.2 MCG/KG/HR 5.6 mls/hr IV .N05X29H RIC[facility] Rx#:[id number] Insulin Regular 100 unit 14.325 In Sodium Chloride 0.9% 100 ml @ Per Protocol IV .Q0M RICHA Rx#:[id number] Nitroglycerin-D5w Pmx 50 3.75 4.275 mg In Dextrose/Water 1 250ml.bag @ 5 MCG/MIN 1.5 mls/hr IV .Q24H RICHA Rx#: [id number] propofoL 1,000 mg In 100 192.735 Empty Bag 1 bag @ Titrate IV .Q0M RICHA Rx#: [id number] Output: Chest Tube Drainage 470 224 130 Chest Tube Bilateral 380 80 80 Lateral Chest Chest Tube Mediastinal 90 144 50 Urine 2285 1675 205 Estimated Blood Loss 300 Other: Voiding Method Indwelling Catheter Indwelling Catheter Indwelling Catheter ABP, PAP, CO, CI - Last Documented Arterial Blood Pressure 71/63 Pulmonary Artery Pressure 33/9 Cardiac Output 7.3 Cardiac Index 3.2 - Exam Sedated, paralyzed, with an orally placed endotracheal tube. No acute distress. HEENT examination is grossly unremarkable. Neck supple. Full range of motion. No adenopathy thyromegaly or neck vein distention. Cardiovascular examination reveals regular rhythm rate. S1-S2 normal. No S3 or S4. No discernible murmur noted. Heart rate 87 bpm. Lungs reveal scattered bilateral rhonchi. No wheezes or crackles. Breath sounds equal bilaterally. Saturations improved to 97 %. Abdomen soft bowel sounds are heard. No masses or tenderness. Extremities are intact. No cyanosis clubbing or edema. Skin is without rash or lesion. Neurologic examination cannot be adequately assessed. - Labs CBC & Chem 7: 03/06/22 04:21 03/06/22 04:21 Labs: Abnormal Lab Results - Last 24 Hours (Table) 03/04/22 03/05/22 03/05/22 Range/Units 05:50 12:27 12:27 WBC (3.8-10.6) k/uL RBC 3.26 L (4.30-5.90) m/uL Hgb 10.1 L (13.0-17.5) gm/dL Hct 28.5 L (39.0-53.0) % Neutrophils # (1.3-7.7) k/uL Lymphocytes # (1.0-4.8) k/uL ABG pH (7.35-7.45) ABG pCO2 (35-45) mmHg ABG pO2 (83-108) mmHg ABG HCO3 (21-25) mmol/L ABG Total CO2 (19-24) mmol/L ABG O2 Saturation (94-97) % Sodium (137-145) mmol/L Chloride 110 H (98-107) mmol/L BUN (9-20) mg/dL Glucose (74-99) mg/dL POC Glucose (mg/dL) (70-110) mg/dL Calcium 7.7 L (8.4-10.2) mg/dL Magnesium (1.6-2.3) mg/dL Total Protein 4.8 L (6.3-8.2) g/dL Albumin 3.0 L (3.5-5.0) g/dL Crossmatch See Detail 03/05/22 03/05/22 03/05/22 Range/Units 12:40 14:09 15:16 WBC (3.8-10.6) k/uL RBC (4.30-5.90) m/uL Hgb (13.0-17.5) gm/dL Hct (39.0-53.0) % Neutrophils # (1.3-7.7) k/uL Lymphocytes # (1.0-4.8) k/uL ABG pH 7.33 L (7.35-7.45) ABG pCO2 46 H (35-45) mmHg ABG pO2 165 H 53 L* 126 H (83-108) mmHg ABG HCO3 (21-25) mmol/L ABG Total CO2 25 H 26 H 25 H (19-24) mmol/L ABG O2 Saturation 100.0 H 86.7 L 99.2 H (94-97) % Sodium (137-145) mmol/L Chloride (98-107) mmol/L BUN (9-20) mg/dL Glucose (74-99) mg/dL POC Glucose (mg/dL) (70-110) mg/dL Calcium (8.4-10.2) mg/dL Magnesium (1.6-2.3) mg/dL Total Protein (6.3-8.2) g/dL Albumin (3.5-5.0) g/dL Crossmatch 03/05/22 03/05/22 03/05/22 Range/Units 15:40 16:14 17:08 WBC 12.1 H (3.8-10.6) k/uL RBC 3.74 L (4.30-5.90) m/uL Hgb 11.6 L (13.0-17.5) gm/dL Hct 33.0 L (39.0-53.0) % Neutrophils # 10.0 H (1.3-7.7) k/uL Lymphocytes # (1.0-4.8) k/uL ABG pH (7.35-7.45) ABG pCO2 (35-45) mmHg ABG pO2 (83-108) mmHg ABG HCO3 (21-25) mmol/L ABG Total CO2 (19-24) mmol/L ABG O2 Saturation (94-97) % Sodium (137-145) mmol/L Chloride (98-107) mmol/L BUN (9-20) mg/dL Glucose (74-99) mg/dL POC Glucose (mg/dL) 111 H 115 H (70-110) mg/dL Calcium (8.4-10.2) mg/dL Magnesium (1.6-2.3) mg/dL Total Protein (6.3-8.2) g/dL Albumin (3.5-5.0) g/dL Crossmatch 03/05/22 03/05/22 03/05/22 Range/Units 18:06 18:33 19:12 WBC 14.8 H (3.8-10.6) k/uL RBC 3.77 L (4.30-5.90) m/uL Hgb 11.8 L (13.0-17.5) gm/dL Hct 33.4 L (39.0-53.0) % Neutrophils # 12.9 H (1.3-7.7) k/uL Lymphocytes # 0.9 L (1.0-4.8) k/uL ABG pH (7.35-7.45) ABG pCO2 (35-45) mmHg ABG pO2 (83-108) mmHg ABG HCO3 (21-25) mmol/L ABG Total CO2 (19-24) mmol/L ABG O2 Saturation (94-97) % Sodium (137-145) mmol/L Chloride (98-107) mmol/L BUN (9-20) mg/dL Glucose (74-99) mg/dL POC Glucose (mg/dL) 123 H 131 H (70-110) mg/dL Calcium (8.4-10.2) mg/dL Magnesium (1.6-2.3) mg/dL Total Protein (6.3-8.2) g/dL Albumin (3.5-5.0) g/dL Crossmatch 03/05/22 03/05/22 03/05/22 Range/Units 20:04 21:05 22:07 WBC (3.8-10.6) k/uL RBC (4.30-5.90) m/uL Hgb (13.0-17.5) gm/dL Hct (39.0-53.0) % Neutrophils # (1.3-7.7) k/uL Lymphocytes # (1.0-4.8) k/uL ABG pH (7.35-7.45) ABG pCO2 (35-45) mmHg ABG pO2 (83-108) mmHg ABG HCO3 (21-25) mmol/L ABG Total CO2 (19-24) mmol/L ABG O2 Saturation (94-97) % Sodium (137-145) mmol/L Chloride (98-107) mmol/L BUN (9-20) mg/dL Glucose (74-99) mg/dL POC Glucose (mg/dL) 130 H 138 H 161 H (70-110) mg/dL Calcium (8.4-10.2) mg/dL Magnesium (1.6-2.3) mg/dL Total Protein (6.3-8.2) g/dL Albumin (3.5-5.0) g/dL Crossmatch 03/05/22 03/06/22 03/06/22 Range/Units 23:03 00:12 01:07 WBC (3.8-10.6) k/uL RBC (4.30-5.90) m/uL Hgb (13.0-17.5) gm/dL Hct (39.0-53.0) % Neutrophils # (1.3-7.7) k/uL Lymphocytes # (1.0-4.8) k/uL ABG pH (7.35-7.45) ABG pCO2 (35-45) mmHg ABG pO2 (83-108) mmHg ABG HCO3 (21-25) mmol/L ABG Total CO2 (19-24) mmol/L ABG O2 Saturation (94-97) % Sodium (137-145) mmol/L Chloride (98-107) mmol/L BUN (9-20) mg/dL Glucose (74-99) mg/dL POC Glucose (mg/dL) 134 H 137 H 140 H (70-110) mg/dL Calcium (8.4-10.2) mg/dL Magnesium (1.6-2.3) mg/dL Total Protein (6.3-8.2) g/dL Albumin (3.5-5.0) g/dL Crossmatch 03/06/22 03/06/22 03/06/22 Range/Units 01:59 03:10 04:18 WBC (3.8-10.6) k/uL RBC (4.30-5.90) m/uL Hgb (13.0-17.5) gm/dL Hct (39.0-53.0) % Neutrophils # (1.3-7.7) k/uL Lymphocytes # (1.0-4.8) k/uL ABG pH (7.35-7.45) ABG pCO2 (35-45) mmHg ABG pO2 (83-108) mmHg ABG HCO3 (21-25) mmol/L ABG Total CO2 (19-24) mmol/L ABG O2 Saturation (94-97) % Sodium (137-145) mmol/L Chloride (98-107) mmol/L BUN (9-20) mg/dL Glucose (74-99) mg/dL POC Glucose (mg/dL) 131 H 130 H 126 H (70-110) mg/dL Calcium (8.4-10.2) mg/dL Magnesium (1.6-2.3) mg/dL Total Protein (6.3-8.2) g/dL Albumin (3.5-5.0) g/dL Crossmatch 03/06/22 03/06/22 03/06/22 Range/Units 04:21 04:21 06:00 WBC 10.8 H (3.8-10.6) k/uL RBC 3.65 L (4.30-5.90) m/uL Hgb 11.5 L (13.0-17.5) gm/dL Hct 32.6 L (39.0-53.0) % Neutrophils # 8.3 H (1.3-7.7) k/uL Lymphocytes # (1.0-4.8) k/uL ABG pH (7.35-7.45) ABG pCO2 50 H (35-45) mmHg ABG pO2 160 H (83-108) mmHg ABG HCO3 27 H (21-25) mmol/L ABG Total CO2 29 H (19-24) mmol/L ABG O2 Saturation 99.7 H (94-97) % Sodium 135 L (137-145) mmol/L Chloride (98-107) mmol/L BUN 8 L (9-20) mg/dL Glucose 118 H (74-99) mg/dL POC Glucose (mg/dL) (70-110) mg/dL Calcium 7.9 L (8.4-10.2) mg/dL Magnesium 2.5 H (1.6-2.3) mg/dL Total Protein 5.4 L (6.3-8.2) g/dL Albumin 3.4 L (3.5-5.0) g/dL Crossmatch 03/06/22 03/06/22 03/06/22 Range/Units 06:24 07:12 08:11 WBC (3.8-10.6) k/uL RBC (4.30-5.90) m/uL Hgb (13.0-17.5) gm/dL Hct (39.0-53.0) % Neutrophils # (1.3-7.7) k/uL Lymphocytes # (1.0-4.8) k/uL ABG pH (7.35-7.45) ABG pCO2 (35-45) mmHg ABG pO2 (83-108) mmHg ABG HCO3 (21-25) mmol/L ABG Total CO2 (19-24) mmol/L ABG O2 Saturation (94-97) % Sodium (137-145) mmol/L Chloride (98-107) mmol/L BUN (9-20) mg/dL Glucose (74-99) mg/dL POC Glucose (mg/dL) 120 H 121 H 124 H (70-110) mg/dL Calcium (8.4-10.2) mg/dL Magnesium (1.6-2.3) mg/dL Total Protein (6.3-8.2) g/dL Albumin (3.5-5.0) g/dL Crossmatch Microbiology - Last 24 Hours (Table) 03/06/22 03:50 Sputum Culture - Preliminary Sputum Assessment and Plan Assessment: Postop day #1, status post single-vessel bypass, SAHU to LAD, off pump. Postoperative hypoxemia, which may relate to fluid overload, and/or the effects of Cleveprex, on compensatory hypoxic vasoconstriction. Chronic nicotine dependence. Family history of premature coronary disease. Hyperlipidemia. Plan: Plan dated 03/05/2022. The patient came back to the intensive care unit, with an initial blood gas showing a pO2 of 165 on 10 of PEEP. The FiO2 was dropped down to 40%. The patient saturations drop, and the repeat PaO2 was only 53. The FiO2 was then increased back up to 100%. I was called down to the ICU, to evaluate the patient. X-rays were reviewed. The patient was a bit agitated and moving his head from [id number], and probably biting down on the endotracheal tube. I decided to paralyze the patient with tendon Nimbex IV push, and immediately, the patient's saturations improved. He also placed endotracheal tube down 1 cm. The patient was placed on Nimbex drip at 2 mcg/kg/m. The patient will remain pa ralyzed overnight. Additional recommendations and suggestions are forthcoming. Labs, x-rays, and medications are reviewed. A repeat blood gas will be done in about an hour. Plan dated 03/06/2022. The patient's Nimbex was discontinued. The patient will be placed on dexmedetomidine. The PEEP levels decreased from 13, down to 10. We will eventually be decreased down to 8. Once the patient is fully awake, the patient will be placed on pressure support of 8, and CPAP of 5. Of course, we'll do a daily interruption of sedation, and a spontaneous breathing trial. The patient may be a candidate for weaning and extubation. Labs, x-rays, and medications are reviewed. Prognosis is certainly guarded. No additional recommendations are made at this time. Time with Patient: Greater than 30
[2022-03-06 11:53] LABS: Glucose,Whole Blood 135 mg/dL (70-110)
[2022-03-06 13:27] LABS: Glucose,Whole Blood 115 mg/dL (70-110)
[2022-03-06] MEDS ORDERED: FUROSEMIDE 10 MG/ML 2 ML VIAL IV STA (14:52)
[2022-03-06] MEDS: HYDROcodone/APAP 5-325MG 1 EACH TAB PO PRN ×3 (15:33→20:44)
[2022-03-06 15:49] LABS: Glucose,Whole Blood 115 mg/dL (70-110)
--- NOTE | 2022-03-06 16:04 | P.PN ---
Subjective Progress Note Date: 03/06/22 Patient is a 46-year-old male with a known history of anxiety, currently every day smoker presents to ER with complaints of chest pain. Patient says that today morning when he was getting ready to go to work he felt like heartburn- like sensation in the mid retrosternal region. He also had pain on bilateral arms associated with nausea and mild shortness of breath. He felt fuzzy and diaphoretic. Pain was getting worse which made him to come to ER. Patient states that he has been having fluttering of the heart on and off for the past couple of weeks. Chest pain did improve by the time he come to ER. Denied any complaints of fever or chills. No cough or sputum production. No leg swelling. Denied any recent illnesses or sick contacts. Family history of coronary artery disease in his mother at age 48 and patient does smoke daily. EKG showed sinus rhythm with ST-T wave abnormalities Chest x-ray showed no acute cardiopulmonary process Laboratory data showed WBC 8.0 hemoglobin 14.0 and platelets 283 D-dimer is 0.37 Sodium 138 potassium 4.7 GERD with grade bicarb is 17 BUN 14 and creatinine 0.74 A1c 6.2 LDL 102 TSH 1.43 Troponin 0.077 and 0.212. Cardiology was consulted and patient underwent catheterization today. This showed severe single-vessel coronary disease involving the proximal portion of the LAD. 03/03/2022 Patient is currently resting in the bed. Awake alert oriented 3. No further episodes of chest pain or shortness of breath. Patient did have some lightheadedness. Improved with Tylenol. Otherwise patient is Nitro Paste. Carotid Duplex Showed 50-70% stenosis in the left ICA. Echocardiogram showed ejection fraction 50-55%. Patient otherwise denied any nausea vomiting abdominal pain and diarrhea. No cough or sputum production. No other acute overnight issues. Patient is scheduled for coronary artery bypass graft on Saturday. 03/04/2022 Patient is resting in bed. Awake alert and oriented 3. No episodes of chest pain or shortness of breath overnight. No nausea vomiting or abdominal pain. No headache or dizziness or lightheadedness. No other acute overnight issues. Patient is scheduled for coronary revascularization tomorrow. Laboratory data reviewed. 03/05/2022 Patient is status post LAD/single-vessel coronary bypass graft. Postoperative day 0 Patient was transferred to MICU postsurgery. Currently intubated and on mechanical ventilator with assist control. Patient is also sedated and paralyzed. Laboratory data showed WBC 10.8 hemoglobin 11.8 and platelets 224 magnesium 1.9 Chest x-ray showed improved inspiration effort with streaky atelectasis in the left lung base postsurgical changes with lines and tubes in appropriate placement. No pneumothorax. 03/06/22. Patient seen and examined. Currently in ICU. Currently intubated and on mechanical ventilation. Vital signs stable REVIEW OF SYSTEMS: Currently intubated and sedated, detailed review of systems cannot be obtained PHYSICAL EXAMINATION: GENERAL: Currently intubated and sedated, HEENT: Pupils are round and equally reacting to light. CARDIOVASCULAR: S1 and S2 present. No murmurs, rubs, or gallops. PULMONARY: Chest is clear to auscultation, no wheezing or crackles. ABDOMEN: Soft, nontender, nondistended, normoactive bowel sounds. No palpable organomegaly. MUSCULOSKELETAL: No joint swelling or deformity. EXTREMITIES: No cyanosis, clubbing, or pedal edema. NEUROLOGICAL: Currently intubated and sedated, Assessment and plan Acute non-ST elevated AK cath Showed severe LAD proximal stenosis. Status post coronary revascularization single-vessel. Severe single-vessel CAD involving the proximal LAD. Hyperlipidemia Hypertension Ongoing nicotine addiction Family history of premature coronary artery disease DVT prophylaxis Plan: Continue postop management per cardiac surgery team Continue mechanical ventilation per ICU Continue current management. Follow-up closely. Objective - Vital Signs Vital signs: Vital Signs Temp 99.7 F H 03/06/22 12:00 Pulse 91 03/06/22 15:30 Resp 30 H 03/06/22 15:30 BP 126/78 03/06/22 15:30 Pulse Ox 94 L 03/06/22 15:30 FiO2 50 03/06/22 12:30 Intake & Output 03/05/22 03/06/22 03/06/22 18:59 06:59 18:59 Intake Total 998.831 5322.109 1247.784 Output Total 3055 1899 645 Balance -2296.916 -518.891 602.784 Weight 112 kg 112 kg Intake: IV 613.5 990.5 1165 Albumin Human 5% 250 ml 500 In Empty Bag 1 bag @ 250 mls/hr IVPB Q1HR PRN Rx#: [id number] Co/Ci 90 90 Lactated Ringers 1,000 ml 350 600 450 @ 50 mls/hr IV .Q20H RICHA Rx#:[id number] Magnesium Sulfate-D5w Pmx 200 1 gm In Dextrose/Water 1 100ml.bag @ 100 mls/hr IVPB Q1H RICHA Rx#: [id number] Nitroglycerin-D5w Pmx 50 10.5 1.5 mg In Dextrose/Water 1 250ml.bag @ 5 MCG/MIN 1.5 mls/hr IV .Q24H RICHA Rx#: [id number] Potassium Chloride 10 meq 200 In Water For Injection 1 100ml.bag @ 100 mls/hr IVPB Q1H RICHA Rx#: [id number] ceFAZolin 2 gm In Sodium 50 50 Chloride 0.9% 50 ml @ 100 mls/hr IVPB Q8HR RICHA Rx# :[id number] pressure bag 99 75 Intake, IV Titration 144.584 389.609 82.784 Amount Cisatracurium 200 mg In 84.007 78.716 Sodium Chloride 0.9% 180 ml @ 1 MCG/KG/MIN 6.546 mls/hr IV .Q24H RICHA Rx#: [id number] Clevidipine Butyrate 25 40.834 94.267 mg In Empty Bag 1 bag @ 1 MG/HR 2 mls/hr IV .Q24H RICHA Rx#:[id number] Dexmedetomidine/0.9% NaCl 1.307 (Pmx) 400 mcg In Empty Bag 1 bag @ 0.2 MCG/KG/HR 5.6 mls/hr IV .[id number] RICHA Rx#:[id number] Insulin Regular 100 unit 14.325 2.761 In Sodium Chloride 0.9% 100 ml @ Per Protocol IV .Q0M RICHA Rx#:[id number] Nitroglycerin-D5w Pmx 50 3.75 4.275 mg In Dextrose/Water 1 250ml.bag @ 5 MCG/MIN 1.5 mls/hr IV .Q24H RICHA Rx#: [id number] propofoL 1,000 mg In 100 192.735 Empty Bag 1 bag @ Titrate IV .Q0M RICHA Rx#: [id number] Output: Chest Tube Drainage 470 224 340 Chest Tube Bilateral 380 80 220 Lateral Chest Chest Tube Mediastinal 90 144 120 Urine 2285 1675 305 Estimated Blood Loss 300 Other: Voiding Method Indwelling Catheter Indwelling Catheter Indwelling Catheter ABP, PAP, CO, CI - Last Documented Arterial Blood Pressure 87/73 Pulmonary Artery Pressure 257/257 Cardiac Output 8 Cardiac Index 3.5 - Labs CBC & Chem 7: 03/06/22 04:21 03/06/22 04:21 Labs: Abnormal Lab Results - Last 24 Hours (Table) 03/04/22 03/05/22 03/05/22 Range/Units 05:50 15:40 16:14 WBC 12.1 H (3.8-10.6) k/uL RBC 3.74 L (4.30-5.90) m/uL Hgb 11.6 L (13.0-17.5) gm/dL Hct 33.0 L (39.0-53.0) % Neutrophils # 10.0 H (1.3-7.7) k/uL Lymphocytes # (1.0-4.8) k/uL ABG pCO2 (35-45) mmHg ABG pO2 (83-108) mmHg ABG HCO3 (21-25) mmol/L ABG Total CO2 (19-24) mmol/L ABG O2 Saturation (94-97) % Sodium (137-145) mmol/L BUN (9-20) mg/dL Glucose (74-99) mg/dL POC Glucose (mg/dL) 111 H (70-110) mg/dL Calcium (8.4-10.2) mg/dL Magnesium (1.6-2.3) mg/dL Total Protein (6.3-8.2) g/dL Albumin (3.5-5.0) g/dL Crossmatch See Detail 03/05/22 03/05/22 03/05/22 Range/Units 17:08 18:06 18:33 WBC 14.8 H (3.8-10.6) k/uL RBC 3.77 L (4.30-5.90) m/uL Hgb 11.8 L (13.0-17.5) gm/dL Hct 33.4 L (39.0-53.0) % Neutrophils # 12.9 H (1.3-7.7) k/uL Lymphocytes # 0.9 L (1.0-4.8) k/uL ABG pCO2 (35-45) mmHg ABG pO2 (83-108) mmHg ABG HCO3 (21-25) mmol/L ABG Total CO2 (19-24) mmol/L ABG O2 Saturation (94-97) % Sodium (137-145) mmol/L BUN (9-20) mg/dL Glucose (74-99) mg/dL POC Glucose (mg/dL) 115 H 123 H (70-110) mg/dL Calcium (8.4-10.2) mg/dL Magnesium (1.6-2.3) mg/dL Total Protein (6.3-8.2) g/dL Albumin (3.5-5.0) g/dL Crossmatch 03/05/22 03/05/22 03/05/22 Range/Units 19:12 20:04 21:05 WBC (3.8-10.6) k/uL RBC (4.30-5.90) m/uL Hgb (13.0-17.5) gm/dL Hct (39.0-53.0) % Neutrophils # (1.3-7.7) k/uL Lymphocytes # (1.0-4.8) k/uL ABG pCO2 (35-45) mmHg ABG pO2 (83-108) mmHg ABG HCO3 (21-25) mmol/L ABG Total CO2 (19-24) mmol/L ABG O2 Saturation (94-97) % Sodium (137-145) mmol/L BUN (9-20) mg/dL Glucose (74-99) mg/dL POC Glucose (mg/dL) 131 H 130 H 138 H (70-110) mg/dL Calcium (8.4-10.2) mg/dL Magnesium (1.6-2.3) mg/dL Total Protein (6.3-8.2) g/dL Albumin (3.5-5.0) g/dL Crossmatch 03/05/22 03/05/22 03/06/22 Range/Units 22:07 23:03 00:12 WBC (3.8-10.6) k/uL RBC (4.30-5.90) m/uL Hgb (13.0-17.5) gm/dL Hct (39.0-53.0) % Neutrophils # (1.3-7.7) k/uL Lymphocytes # (1.0-4.8) k/uL ABG pCO2 (35-45) mmHg ABG pO2 (83-108) mmHg ABG HCO3 (21-25) mmol/L ABG Total CO2 (19-24) mmol/L ABG O2 Saturation (94-97) % Sodium (137-145) mmol/L BUN (9-20) mg/dL Glucose (74-99) mg/dL POC Glucose (mg/dL) 161 H 134 H 137 H (70-110) mg/dL Calcium (8.4-10.2) mg/dL Magnesium (1.6-2.3) mg/dL Total Protein (6.3-8.2) g/dL Albumin (3.5-5.0) g/dL Crossmatch 03/06/22 03/06/22 03/06/22 Range/Units 01:07 01:59 03:10 WBC (3.8-10.6) k/uL RBC (4.30-5.90) m/uL Hgb (13.0-17.5) gm/dL Hct (39.0-53.0) % Neutrophils # (1.3-7.7) k/uL Lymphocytes # (1.0-4.8) k/uL ABG pCO2 (35-45) mmHg ABG pO2 (83-108) mmHg ABG HCO3 (21-25) mmol/L ABG Total CO2 (19-24) mmol/L ABG O2 Saturation (94-97) % Sodium (137-145) mmol/L BUN (9-20) mg/dL Glucose (74-99) mg/dL POC Glucose (mg/dL) 140 H 131 H 130 H (70-110) mg/dL Calcium (8.4-10.2) mg/dL Magnesium (1.6-2.3) mg/dL Total Protein (6.3-8.2) g/dL Albumin (3.5-5.0) g/dL Crossmatch 03/06/22 03/06/22 03/06/22 Range/Units 04:18 04:21 04:21 WBC 10.8 H (3.8-10.6) k/uL RBC 3.65 L (4.30-5.90) m/uL Hgb 11.5 L (13.0-17.5) gm/dL Hct 32.6 L (39.0-53.0) % Neutrophils # 8.3 H (1.3-7.7) k/uL Lymphocytes # (1.0-4.8) k/uL ABG pCO2 (35-45) mmHg ABG pO2 (83-108) mmHg ABG HCO3 (21-25) mmol/L ABG Total CO2 (19-24) mmol/L ABG O2 Saturation (94-97) % Sodium 135 L (137-145) mmol/L BUN 8 L (9-20) mg/dL Glucose 118 H (74-99) mg/dL POC Glucose (mg/dL) 126 H (70-110) mg/dL Calcium 7.9 L (8.4-10.2) mg/dL Magnesium 2.5 H (1.6-2.3) mg/dL Total Protein 5.4 L (6.3-8.2) g/dL Albumin 3.4 L (3.5-5.0) g/dL Crossmatch 03/06/22 03/06/22 03/06/22 Range/Units 06:00 06:24 07:12 WBC (3.8-10.6) k/uL RBC (4.30-5.90) m/uL Hgb (13.0-17.5) gm/dL Hct (39.0-53.0) % Neutrophils # (1.3-7.7) k/uL Lymphocytes # (1.0-4.8) k/uL ABG pCO2 50 H (35-45) mmHg ABG pO2 160 H (83-108) mmHg ABG HCO3 27 H (21-25) mmol/L ABG Total CO2 29 H (19-24) mmol/L ABG O2 Saturation 99.7 H (94-97) % Sodium (137-145) mmol/L BUN (9-20) mg/dL Glucose (74-99) mg/dL POC Glucose (mg/dL) 120 H 121 H (70-110) mg/dL Calcium (8.4-10.2) mg/dL Magnesium (1.6-2.3) mg/dL Total Protein (6.3-8.2) g/dL Albumin (3.5-5.0) g/dL Crossmatch 03/06/22 03/06/22 03/06/22 Range/Units 08:11 11:52 13:26 WBC (3.8-10.6) k/uL RBC (4.30-5.90) m/uL Hgb (13.0-17.5) gm/dL Hct (39.0-53.0) % Neutrophils # (1.3-7.7) k/uL Lymphocytes # (1.0-4.8) k/uL ABG pCO2 (35-45) mmHg ABG pO2 (83-108) mmHg ABG HCO3 (21-25) mmol/L ABG Total CO2 (19-24) mmol/L ABG O2 Saturation (94-97) % Sodium (137-145) mmol/L BUN (9-20) mg/dL Glucose (74-99) mg/dL POC Glucose (mg/dL) 124 H 135 H 115 H (70-110) mg/dL Calcium (8.4-10.2) mg/dL Magnesium (1.6-2.3) mg/dL Total Protein (6.3-8.2) g/dL Albumin (3.5-5.0) g/dL Crossmatch 03/06/22 Range/Units 15:45 WBC (3.8-10.6) k/uL RBC (4.30-5.90) m/uL Hgb (13.0-17.5) gm/dL Hct (39.0-53.0) % Neutrophils # (1.3-7.7) k/uL Lymphocytes # (1.0-4.8) k/uL ABG pCO2 (35-45) mmHg ABG pO2 (83-108) mmHg ABG HCO3 (21-25) mmol/L ABG Total CO2 (19-24) mmol/L ABG O2 Saturation (94-97) % Sodium (137-145) mmol/L BUN (9-20) mg/dL Glucose (74-99) mg/dL POC Glucose (mg/dL) 115 H (70-110) mg/dL Calcium (8.4-10.2) mg/dL Magnesium (1.6-2.3) mg/dL Total Protein (6.3-8.2) g/dL Albumin (3.5-5.0) g/dL Crossmatch Microbiology - Last 24 Hours (Table) 03/06/22 03:50 Gram Stain - Preliminary Sputum Sputum Culture - Preliminary
[2022-03-06] MEDS: METOPROLOL TARTRATE 12.5 MG TAB PO SCH ×2 (16:08→23:49)
[2022-03-06 19:02] LABS: Glucose,Whole Blood 175 mg/dL (70-110)
[2022-03-06 20:38] LABS: Glucose,Whole Blood 100 mg/dL (70-110)
[2022-03-06] MEDS: SENNOSIDES-DOCUSATE SODIUM 1 EACH TAB PO SCH (20:45)
[2022-03-06] MEDS: LACTATED RINGERS 1,000 ML IV SCH (20:47)
[2022-03-06 23:05] LABS: Glucose,Whole Blood 117 mg/dL (70-110)
[2022-03-07 01:14] LABS: Glucose,Whole Blood 131 mg/dL (70-110)
[2022-03-07] MEDS: HYDROcodone/APAP 5-325MG 1 EACH TAB PO PRN ×4 (01:16→20:08)
[2022-03-07 04:14] LABS: Glucose,Whole Blood 114 mg/dL (70-110)
[2022-03-07 04:46] LABS: Basophils % (A) 0 %; Eosinophils # (A) 0.2 k/uL (0-0.7); Eosinophils % (A) 2 %; HCT 30.1 % (39.0-53.0); HGB 10.3 gm/dL (13.0-17.5); Lymphocytes # (A) 1.4 k/uL (1.0-4.8); Lymphocytes % (A) 16 %; MCH 30.3 pg (25.0-35.0); MCHC 34.2 g/dL (31.0-37.0); MCV 88.4 fL (80.0-100.0); Monocytes # (A) 0.5 k/uL (0-1.0); Monocytes % (A) 6 %; Neutrophils # (A) 6.3 k/uL (1.3-7.7); Neutrophils % (A) 74 %; Platelet Count 157 k/uL (150-450); RDW 13.1 % (11.5-15.5); WBC 8.5 k/uL (3.8-10.6)
[2022-03-07 04:56] LABS: ALT 28 U/L (4-49); AST 36 U/L (17-59); African American GFR (CKD) >90 (>60 ml/min/1.73 sqM); Albumin 3.3 g/dL (3.5-5.0); Alkaline Phosphatase 51 U/L (38-126); Anion Gap 6 mmol/L; Blood Urea Nitrogen 10 mg/dL (9-20); Calcium 8.3 mg/dL (8.4-10.2); Carbon Dioxide 27 mmol/L (22-30); Chloride 104 mmol/L (98-107); Glucose 110 mg/dL (74-99); Non-African American GFR(CKD) >90 (>60 ml/min/1.73 sqM); Potassium 3.8 mmol/L (3.5-5.1); Sodium 137 mmol/L (137-145); Total Protein 5.3 g/dL (6.3-8.2)
[2022-03-07 04:59] LABS: Ionized Calcium 4.9 mg/dL (4.5-5.3)
[2022-03-07] MEDS: KETOROLAC 15 MG/ML 1 ML VIAL IVP SCH ×3 (06:16→18:23)
[2022-03-07] MEDS: LACTATED RINGERS 1,000 ML IV SCH (06:17)
[2022-03-07] MEDS ORDERED: POTASSIUM CHLORIDE ER 20 MEQ TAB.ER PO SCH (07:00)
--- NOTE | 2022-03-07 07:07 | XR ---
EXAMINATION TYPE: XR chest 1V portable DATE OF EXAM: 03/07/2022 6:13 AM COMPARISON: Chest radiograph from one day prior. TECHNIQUE: XR chest 1V portable Frontal view of the chest. CLINICAL INDICATION:Male, 46 years old with history of Post Operative Cardiac Surgery; FINDINGS: Lungs/Pleura: Similar multifocal airspace opacities. No evidence of pneumothorax. Mild blunting of le ft costophrenic angle which may be due to patient positioning. Pulmonary vascularity: Unremarkable. Heart/mediastinum: Cardiomediastinal silhouette is unremarkable. Musculoskeletal: No acute osseous pathology. Midline sternotomy wires are noted. Other findings: None Lines/Tubes: Interval removal of endotracheal and nasogastric tubing. Bilateral thoracotomy tubes are present without evidence of pneumothorax. Drainage tubes with tips projecting over the mediastinum. IMPRESSION: 1. Postsurgical changes with interval removal of endotracheal and nasogastric tubing. Satisfactory t horacotomy tubes without evidence of pneumothorax. 2. Possible small left pleural effusion which may just be due to patient positioning.
[2022-03-07] MEDS: IPRATROPIUM-ALBUTEROL 3 ML NEB INHALATION SCH ×4 (07:32→20:03)
[2022-03-07] MEDS ORDERED: FUROSEMIDE 10 MG/ML 2 ML VIAL IV STA (07:46)
[2022-03-07] MEDS ORDERED: POTASSIUM CHLORIDE ER 10 MEQ TAB.ER.PRT PO STA (07:47)
[2022-03-07] MEDS: HEPARIN SODIUM,PORCINE/PF 5,000 UNIT/0.5 ML SYRINGE SQ SCH ×2 (08:01→16:51)
[2022-03-07] MEDS: PANTOPRAZOLE 40 MG TABLET PO SCH (08:01)
--- NOTE | 2022-03-07 08:09 | P.PN ---
Subjective Progress Note Date: 03/07/22 Principal diagnosis: Coronary artery disease, non-ST elevated myocardial infarction this admission. Past medical history significant for hyperlipidemia, hypertension, depression, chronic ongoing tobacco dependence and a family history of early onset coronary artery disease with his mother having a myocardial infarction at age 48. The patient also has a history of colon polyps and has recently been having episodes of diarrhea with occasional bloody stools 1-2 times per month. POD #2 off-pump coronary artery bypass grafting 1 vessel, left internal mammary artery to left anterior descending coronary artery, lysis of adhesions, graft flow measurements using the Medistim system, and intraoperative transesophageal echocardiogram completed by anesthesia. Postoperative acute blood loss anemia, expected due to hemodilution. Prolonged mechanical ventilation secondary to hypoxemia, with possible secondary effects from Cleviprex drip The patient was seen and examined in follow-up today 03/07/2022 and his bedside in the intensive care unit. He was successfully extubated yesterday at 12:35 PM, he is currently on 7 L nasal cannula with oxygen saturation is 96% and he is achieving 1500 mL on his incentive spirometry with much encouragement. Denies any complaints of shortness of breath at this time although he is complaining of some surgical type pain to his chest tube insertion sites with taking a deep breath. Currently he is sitting up to bedside chair, is awake, alert, oriented 3 and is in no acute apparent distress. He remains hemodynamically stable and is currently on no inotropic or pressor support. Right IJ Cordis is in place with continuous CVP monitoring, current CVP pressures 10 mmHg. Mediastinal, left pleural chest tubes and right pleural Erasto tube remains in place to low continuous wall suction -20 cm H2O. No air leak is present. Draining thin serous drainage. Mediastinal chest tube drained 50 mL output in the last 8 hours and 200 mL output in the last 24 hours. Right pleural Erasto drain and left pleural chest tube draining thin serosanguineous drainage with 60 mL output in the last 8 hours and 380 mL output in the last 24 hours. Laboratory results this morning showing a WBC count of 8.5, hemoglobin 10.3, hematocrit 30.1, pl atelets 157, sodium 137, potassium 3.8, chloride 104, CO2 27, BUN 10, creatinine 0.75, glucose 110, calcium 8.3, and ionized calcium 4.9. Bedside telemetry showing normal sinus rhythm heart rate 81 BPM. Objective - Vital Signs Vital signs: Vital Signs Temp 97.9 F 03/07/22 04:00 Pulse 85 03/07/22 07:41 Resp 20 03/07/22 07:00 BP 128/77 03/07/22 07:00 Pulse Ox 96 03/07/22 07:35 FiO2 50 03/06/22 12:30 Intake & Output 03/06/22 03/07/22 03/07/22 18:59 06:59 18:59 Intake Total 2149.233 643.794 53 Output Total 1155 1145 80 Balance 994.233 -501.206 -27 Weight 112 kg 111.5 kg Intake: IV 1324 636 53 Albumin Human 5% 250 ml 500 In Empty Bag 1 bag @ 250 mls/hr IVPB Q1HR PRN Rx#: [id number] Co/Ci 90 Lactated Ringers 1,000 ml 600 600 50 @ 50 mls/hr IV .Q20H RICHA Rx#:[id number] ceFAZolin 2 gm In Sodium 50 Chloride 0.9% 50 ml @ 100 mls/hr IVPB Q8HR RICHA Rx# :[id number] pressure bag 84 36 3 Intake, IV Titration 85.233 7.794 Amount Cisatracurium 200 mg In 78.716 Sodium Chloride 0.9% 180 ml @ 1 MCG/KG/MIN 6.546 mls/hr IV .Q24H RCI[facility] Rx#: [id number] Dexmedetomidine/0.9% NaCl 1.307 (Pmx) 400 mcg In Empty Bag 1 bag @ 0.2 MCG/KG/HR 5.6 mls/hr IV .[id number] RICHA Rx#:[id number] Insulin Regular 100 unit 5.210 7.794 In Sodium Chloride 0.9% 100 ml @ Per Protocol IV .Q0M RICHA Rx#:[id number] Oral 740 Output: Chest Tube Drainage 420 180 30 Chest Tube Bilateral 250 110 20 Lateral Chest Chest Tube Mediastinal 170 70 10 Urine 735 965 50 Other: Voiding Method Indwelling Catheter Indwelling Catheter ABP, PAP, CO, CI - Last Documented Arterial Blood Pressure 87/73 Pulmonary Artery Pressure 36/18 Cardiac Output 9.7 Cardiac Index 4.3 - Exam CONSTITUTIONAL: Sitting up to the bedside chair in the intensive care unit, appears comfortable, cooperative, no apparent acute distress. HEENT: Neck is supple, no JVD, no lymphadenopathy. Right IJ Cordis in place and functioning. RESPIRATORY: Lungs sounds essentially clear throughout, diminished to his bilateral bases. Respirations are symmetrical and nonlabored. Currently on 7 L high flow nasal cannula with oxygen saturations 96%. Able to achieve 1500 mL on his incentive spirometry. Strong cough. CARDIOVASCULAR: Regular rhythm and rate. S1 and S2 present, negative for S3, gallop or murmur. Sternum is stable. Palpable peripheral pulses bilaterally, no edema to his bilateral lower extremities. No calf pain or tenderness noted. Heart hugger in place with patient demonstrating appropriate use. Knee-high RAMYA hose and sequential compression devices in place to his bilateral lower extremities. GASTROINTESTINAL: Abdomen soft, nontender, nondistended. Active bowel sounds present 4 quadrants. Tolerating diet. Passing flatus. No guarding or rigidity. GENITOURINARY: Rodriguez present draining clear, yellow urine. Urine output 565 mL in the last 8 hours. INTEGUMENTARY: Skin is warm and dry with no evidence of clubbing or cyanosis. Midline sternal incision clean dry and well approximated, covered with dry intact dressing. NEUROLOGIC: Cranial nerves II through XII intact. No focal deficits. MUSKULOSKELETAL: Able to move all extremities, strength equal bilaterally, generalized weakness. PSYCHIATRIC: Alert and oriented to person place and time, appropriate affect, intact judgment and insight. INVASIVE LINES AND TUBES: Mediastinal/left pleural chest tubes and right pleural Erasto drain present and connected to low continuous wall suction, no air leaks present. Mediastinal tube with 50 mL of thin serosanguineous drainage overnight, 200 mL output in the last 24 hours. Left pleural chest tube and right pleural Erasto drain with 60 mL of thin serosanguineous drainage overnight, 380 mL output in the last 24 hours. Right internal jugular Cordis, with current CVP 10 mmHg. - Allied health notes Allied health notes reviewed: nursing - Labs CBC & Chem 7: 03/07/22 04:09 03/07/22 04:09 Labs: Abnormal Lab Results - Last 24 Hours (Table) 03/06/22 03/06/22 03/06/22 Range/Units 08:11 11:52 13:26 RBC (4.30-5.90) m/uL Hgb (13.0-17.5) gm/dL Hct (39.0-53.0) % Glucose (74-99) mg/dL POC Glucose (mg/dL) 124 H 135 H 115 H (70-110) mg/dL Calcium (8.4-10.2) mg/dL Total Protein (6.3-8.2) g/dL Albumin (3.5-5.0) g/dL 03/06/22 03/06/22 03/06/22 Range/Units 15:45 19:01 23:04 RBC (4.30-5.90) m/uL Hgb (13.0-17.5) gm/dL Hct (39.0-53.0) % Glucose (74-99) mg/dL POC Glucose (mg/dL) 115 H 175 H 117 H (70-110) mg/dL Calcium (8.4-10.2) mg/dL Total Protein (6.3-8.2) g/dL Albumin (3.5-5.0) g/dL 03/07/22 03/07/22 03/07/22 Range/Units 01:11 04:09 04:09 RBC 3.40 L (4.30-5.90) m/uL Hgb 10.3 L (13.0-17.5) gm/dL Hct 30.1 L (39.0-53.0) % Glucose 110 H (74-99) mg/dL POC Glucose (mg/dL) 131 H (70-110) mg/dL Calcium 8.3 L (8.4-10.2) mg/dL Total Protein 5.3 L (6.3-8.2) g/dL Albumin 3.3 L (3.5-5.0) g/dL 03/07/22 Range/Units 04:13 RBC (4.30-5.90) m/uL Hgb (13.0-17.5) gm/dL Hct (39.0-53.0) % Glucose (74-99) mg/dL POC Glucose (mg/dL) 114 H (70-110) mg/dL Calcium (8.4-10.2) mg/dL Total Protein (6.3-8.2) g/dL Albumin (3.5-5.0) g/dL Microbiology - Last 24 Hours (Table) 10/04/22 03:50 Gram Stain - Preliminary Sputum Sputum Culture - Preliminary - Imaging and Cardiology Chest x-ray: report reviewed, image reviewed Assessment and Plan Assessment: 1. Coronary artery disease with a 90% stenosis to his proximal left anterior descending coronary artery, status post coronary artery bypass grafting surgery 1 2. Non-ST elevated myocardial infarction this admission 3. Hypertension 4. Hyperlipidemia 5. History of depression 6. Chronic ongoing tobacco dependence smokes 1 pack of cigarettes per day, with preoperative FEV1 110% predicted value of 4.5 L 7. Frequent episodes of diarrhea with occasional bloody stools 1-2 times per month 8. Left internal carotid artery stenosis 50-70% per carotid duplex study 9. Postoperative acute blood loss anemia, expected due to hemodilution 10. Prolonged mechanical ventilation, secondary to hypoxemia, possibly related to secondary effects from Cleviprex drip Plan: 1. Continue to maximize medical therapy with full strength aspirin, statin, Plavix and beta shahid. We will increase metoprolol tartrate 25 mg by mouth twice a day. 2. Lasix 20 mg IV 1 and potassium chloride 10 mEq by mouth 1. 3. Encourage use of his incentive spirometry 10 times every hour while awake. Bronchodilators per pulmonology/critical care management. 4. Increase activity, ambulate as tolerated. PT/OT/cardiac rehab following. 5. Will monitor daily labs and chest x-ray. Electrolyte replacement per protocol. 6. Pain control with current medication regimen. 7. Insulin management per internal medicine. Patient is not diabetic, preoperative hemaglobin A1c 6.2%. 8. Remove right IJ Cordis. 9. Remove mediastinal chest tube, left pleural chest tube and right pleural Erasto drain. 10. Remove rodriguez catheter. Continue to record strict and accurate I's and O's. Maybe bladder scan every 6 hours and when necessary postvoid residual. If greater than 300 mL of urine may straight cath. Daily weights. 11. We will keep in the ICU for another 24 hours. 12. More recommendations to follow based on patient's clinical course Time with Patient: Greater than 30
[2022-03-07 09:00] LABS: Glucose,Whole Blood 151 mg/dL (70-110)
[2022-03-07] MEDS: CLOPIDOGREL 75 MG TAB PO SCH (09:12)
[2022-03-07] MEDS: ASPIRIN 325 MG TAB PO SCH (09:12)
[2022-03-07] MEDS: MUPIROCIN 2% OINT 22 GM TUBE NASAL SCH ×2 (09:12→20:12)
[2022-03-07] MEDS: ATORVASTATIN 40 MG TAB PO SCH (09:12)
[2022-03-07] MEDS: METOPROLOL TARTRATE 25 MG TAB PO SCH ×2 (09:12→20:08)
[2022-03-07] MEDS: VORTIOXETINE HYDROBROMIDE 10 MG TABLET PO SCH (09:12)
[2022-03-07 11:14] LABS: Glucose,Whole Blood 118 mg/dL (70-110)
--- NOTE | 2022-03-07 11:23 | P.PN ---
Subjective Progress Note Date: 03/07/22 Principal diagnosis: Status post single-vessel bypass. Coronary artery disease, scheduled for CABG in a.m. This is a 46-year-old white male, [id number]-dwyt smoking history, known history of dyslipidemia, strong family history of coronary artery disease, mother had [facility] in her 40s, patient presented to the ER with chest discomfort. Patient felt that the pain was left-sided, radiating to upper extremities, it was associated with slight shortness of breath and nausea/diaphoresis. Patient was seen by cardiology and felt to have non-ST elevation myocardial infarction. Patient un derwent cardiac catheterization, he was found to have significant extensive LAD disease, patient was advised by cardiology to have myocardial revascularization, and this is scheduled to be done next Saturday. We were asked to see the patient on consultation for pulmonary clearance. Patient doesn't smoke, and he denies any symptoms of cough wheezing or shortness of breath. Never been diagnosed wit h COPD, not on any inhalers. Patient has been quite active able to walk a mile easily and able to climb a few flights of stairs without any difficulty. Again he had no previous documented pulmonary bedside PFT is pending Reevaluated today on 03/06/22, patient is doing great, asymptomatic, in no di stress, scheduled for myocardial revascularization in a.m. Progress note dated 03/05/2022. Today is postop day #0, status post SAHU to LAD single-vessel off-pump bypass. The patient came back to the ICU, and room 264, and initially, he was on the volume assist control, rate 16, tidal volume 550, FiO2 100%, and PEEP of 10. Initial blood gases showed a pO2 of 165, pCO2 of 40, pH is 7.38. FiO2 was dropped down to 40%. Subsequent to that, the patient's saturations dropped down into the 80s and even high 70s. A repeat blood gas showed a pO2 of 53, pCO2 of 46, and pH is 7.33. The patient was increased back up to 100%. Currently, the patient's on IV nitroglycerin at 5 mcg/m, propofol at 50 mcg/kg/m, and Cleveprex at 2 mg an hour. I was called down to the intensive care unit, because of the low saturations. I assessed the patient at the bedside. The chest x-ray initially looked better than the subsequent chest x-ray which seemed to show some bilateral infiltrates. Could relate to pulmonary edema. In addition, I felt endotracheal tube she be pushed down 1 cm. Also, I decided to paralyzed the patient, giving him 10 mg a Nimbex IV push, and then a drip at 2 mcg/kg/m, with the idea that we would keep him paralyzed, overnight, and work on getting him extubated in the morning. Additional labs today include a white count of 8.9, hemoglobin 10.1, hematocrit 28.5, and a platelet count of 289,000. Sodium 140, potassium 3.8, chlorides 110, CO2 22, with a normal anion gap, BUN, and creatinine. All x-rays from today were reviewed. Progress note dated 03/06/2022. Today is postop day #1, status post SAHU to LAD single-vessel, off pump bypass. The patient is seen today in room 264. Initially, his saturations are quite low, we had the sedating and paralyzing him, to control him over the evening. Currently, he is on the volume assist control, rate of 16, tidal volume 550, FiO2 50%, and PEEP of 13. The PEEP will be dropped from 13 to 10. Blood gases show a PaO2 of 160, pCO2 49, and a pH is 7.34. Those blood gases were done on 60%. Currently, the patient is on lactated Ringer's at 50 mL an hour, insulin drip at 0.5 units an hour, and propofol at 50 mcg/kg/m. Earlier this morning, I called the ICU and had them turn off the Nimbex. The patient's cardiac output is 7.3 with an index of 3.2. White count 10.8, hemoglobin 11.5, hematocrit 32.6, with a platelet count of 198,000. Sodium 135, potassium 4.6, chlorides 103, CO2 24, BUN 8, creatinine 0.67. Chest x-ray shows changes of venous congestion, and small bilateral effusions, with some bibasilar atelectasis. Progress note dated 03/07/2022. Postop day #2, status post SAHU to LAD single-vessel off-pump bypass. The patient is again seen in room 264. He is currently on 7 L of oxygen by nasal cannula. He is getting lactated Ringer's at 30 mL an hour. He seems much more awake and alert. He is doing hourly incentive spirometer usage. White count 8.5, hemoglobin 10.3, hematocrit 30.1, and platelet count 157,000. Sodium, potassium, chloride, CO2, anion gap, BUN, and creatinine are all normal. C alcium is 8.3. Albumin is 3.3. Chest x-ray shows bibasilar atelectasis, and small lung volumes. Objective - Vital Signs Vital signs: Vital Signs Temp 98.1 F 03/07/22 08:00 Pulse 73 03/07/22 11:00 Resp 24 03/07/22 11:00 BP 110/69 03/07/22 11:00 Pulse Ox 96 03/07/22 11:00 FiO2 50 03/06/22 12:30 Intake & Output 03/06/22 03/07/22 03/07/22 18:59 06:59 18:59 Intake Total 2149.233 643.794 639 Output Total 1155 1145 1585 Balance 994.233 -501.206 -946 Weight 112 kg 111.5 kg Intake: IV 1324 636 159 Albumin Human 5% 250 ml 500 In Empty Bag 1 bag @ 250 mls/hr IVPB Q1HR PRN Rx#: [id number] Co/Ci 90 Lactated Ringers 1,000 ml 600 600 150 @ 50 mls/hr IV .Q20H [facility] Rx#:[id number] ceFAZolin 2 gm In Sodium 50 Chloride 0.9% 50 ml @ 100 mls/hr IVPB Q8HR [facility] Rx# :[id number] pressure bag 84 36 9 Intake, IV Titration 85.233 7.794 Amount Cisatracurium 200 mg In 78.716 Sodium Chloride 0.9% 180 ml @ 1 MCG/KG/MIN 6.546 mls/hr IV .Q24H [facility] Rx#: [id number] Dexmedetomidine/0.9% NaCl 1.307 (Pmx) 400 mcg In Empty Bag 1 bag @ 0.2 MCG/KG/HR 5.6 mls/hr IV .[id number] [facility] Rx#:[id number] Insulin Regular 100 unit 5.210 7.794 In Sodium Chloride 0.9% 100 ml @ Per Protocol IV .Q0M [facility] Rx#:[id number] Oral 740 480 Output: Chest Tube Drainage 420 180 30 Chest Tube Bilateral 250 110 20 Lateral Chest Chest Tube Mediastinal 170 70 10 Urine 089 229 2270 Other: Voiding Method Indwelling Catheter Indwelling Catheter Indwelling Catheter # Voids 0 ABP, PAP, CO, CI - Last Documented Arterial Blood Pressure 87/73 Pulmonary Artery Pressure 36/18 Cardiac Output 9.7 Cardiac Index 4.3 - Exam Awake and alert, extubated, on 7 L of oxygen. No respiratory distress, use of accessory muscles, or conversational dyspnea. HEENT examination is grossly unremarkable. Neck supple. Full range of motion. No adenopathy thyromegaly or neck vein distention. Cardiovascular examination reveals regular rhythm rate. S1-S2 normal. No S3 or S4. No discernible murmur noted. Heart rate 70 bpm. Lungs reveal scattered bilateral rhonchi. No wheezes or crackles. Breath sounds equal bilaterally. Saturations improved to 96 %. Abdomen soft bowel sounds are heard. No masses or tenderness. Extremities are intact. No cyanosis clubbing or edema. Skin is without rash or lesion. Neurologic examination is brief but nonfocal. - Labs CBC & Chem 7: 03/07/22 04:09 03/07/22 04:09 Labs: Abnormal Lab Results - Last 24 Hours (Table) 03/06/22 03/06/22 03/06/22 Range/Units 11:52 13:26 15:45 RBC (4.30-5.90) m/uL Hgb (13.0-17.5) gm/dL Hct (39.0-53.0) % Glucose (74-99) mg/dL POC Glucose (mg/dL) 135 H 115 H 115 H (70-110) mg/dL Calcium (8.4-10.2) mg/dL Total Protein (6.3-8.2) g/dL Albumin (3.5-5.0) g/dL 03/06/22 03/06/22 03/07/22 Range/Units 19:01 23:04 01:11 RBC (4.30-5.90) m/uL Hgb (13.0-17.5) gm/dL Hct (39.0-53.0) % Glucose (74-99) mg/dL POC Glucose (mg/dL) 175 H 117 H 131 H (70-110) mg/dL Calcium (8.4-10.2) mg/dL Total Protein (6.3-8.2) g/dL Albumin (3.5-5.0) g/dL 03/07/22 03/07/22 03/07/22 Range/Units 04:09 04:09 04:13 RBC 3.40 L (4.30-5.90) m/uL Hgb 10.3 L (13.0-17.5) gm/dL Hct 30.1 L (39.0-53.0) % Glucose 110 H (74-99) mg/dL POC Glucose (mg/dL) 114 H (70-110) mg/dL Calcium 8.3 L (8.4-10.2) mg/dL Total Protein 5.3 L (6.3-8.2) g/dL Albumin 3.3 L (3.5-5.0) g/dL 03/07/22 03/07/22 Range/Units 08:59 11:12 RBC (4.30-5.90) m/uL Hgb (13.0-17.5) gm/dL Hct (39.0-53.0) % Glucose (74-99) mg/dL POC Glucose (mg/dL) 151 H 118 H (70-110) mg/dL Calcium (8.4-10.2) mg/dL Total Protein (6.3-8.2) g/dL Albumin (3.5-5.0) g/dL Microbiology - Last 24 Hours (Table) 03/06/22 03:50 Gram Stain - Preliminary Sputum Sputum Culture - Preliminary Assessment and Plan Assessment: Postop day #2, status post single-vessel bypass, SAHU to LAD, off pump. Routine postoperative ventilator management, with successful extubation on March 06. Postoperative hypoxemia, which may relate to fluid overload, and/or the effects of Cleveprex, on compensatory hypoxic vasoconstriction. Chronic nicotine dependence. Family history of premature coronary disease. Hyperlipidemia. Plan: Plan dated 03/05/2022. The patient came back to the intensive care unit, with an initial blood gas showing a pO2 of 165 on 10 of PEEP. The FiO2 was dropped down to 40%. The patient saturations drop, and the repeat PaO2 was only 53. The FiO2 was then increased back up to 100%. I was called down to the ICU, to evaluate the patient. X-rays were reviewed. The patient was a bit agitated and moving his head from [id number], and probably biting down on the endotracheal tube. I decided to paralyze the patient with tendon Nimbex IV push, and immediately, the patient's saturations improved. He also placed endotracheal tube down 1 cm. The patient was placed on Nimbex drip at 2 mcg/kg/m. The patient will remain paralyzed overnight. Additional recommendations and suggestions are forthcoming. Labs, x-rays, and medications are reviewed. A repeat blood gas will be done in about an hour. Plan dated 03/06/2022. The patient's Nimbex was discontinued. The patient will be placed on dexmedetomidine. The PEEP levels decreased from 13, down to 10. We will eventually be decreased down to 8. Once the patient is fully awake, the patient will be placed on pressure support of 8, and CPAP of 5. Of course, we'll do a daily interruption of sedation, and a spontaneous breathing trial. The patient may be a candidate for weaning and extubation. Labs, x-rays, and medications are reviewed. Prognosis is certainly guarded. No additional recommendations are made at this time. Plan dated 03/07/2022. The patient is postop day #2. Labs, x-rays, and medications are all reviewed. The patient was successfully extubated yesterday after a daily interruption of sedation. The patient appears to be doing relatively well. He continues to deep breathe, cough, and clear secretions. We also recommend hourly use of incentive spirometer. No additional recommendations are made. We will continue to follow the patient make recommendations along the way. Time with Patient: Greater than 30
[2022-03-07] MEDS: INSULIN ASPART (NovoLOG) 100 UNIT/ML VIAL SQ SCH ×3 (12:06→20:12)
--- NOTE | 2022-03-07 13:10 | PN ---
PROGRESS NOTE SUBJECTIVE: Mr. De Los Santos underwent aortocoronary bypass surgery off-pump with a single graft SAHU to LAD by Dr. Colby. He has developed some hypoxia. He also had a lot of adhesions over the pericardium and his pulmonary pressures were also mildly elevated. He is still on a ventilator. Weaning efforts are in progress. Hypoxia is an issue, but hemodynamically, the patient is stable with fairly decent urine output. OBJECTIVE: VITAL SIGNS: Physical exam revealed blood pressure of about 120/80, pulse rate is about 70 per minute and sinus. NECK: No JVD. HEART: S1, S2 with a pericardial rub is audible. LUNGS: Reveal bilateral ventilator-assisted breath sounds. ABDOMEN: Soft. LOWER EXTREMITIES: Reveal diminished pulses. CENTRAL NERVOUS SYSTEM: Assessment was not performed. PLAN: Plan is to continue supportive care and further management by Cardiac Surgery. Prognosis remains guarded. MMODL / IJN: [id number] /
--- NOTE | 2022-03-07 13:27 | P.PN ---
Subjective Progress Note Date: 03/07/22 Patient is a 46-year-old male with a known history of anxiety, currently every day smoker presents to ER with complaints of chest pain. Patient says that today morning when he was getting ready to go to work he felt like heartburn- like sensation in the mid retrosternal region. He also had pain on bilateral arms associated with nausea and mild shortness of breath. He felt fuzzy and diaphoretic. Pain was getting worse which made him to come to ER. Patient states that he has been having fluttering of the heart on and off for the past couple of weeks. Chest pain did improve by the time he come to ER. Denied any complaints of fever or chills. No cough or sputum production. No leg swelling. Denied any recent illnesses or sick contacts. Family history of coronary artery disease in his mother at age 48 and patient does smoke daily. EKG showed sinus rhythm with ST-T wave abnormalities Chest x-ray showed no acute cardiopulmonary process Laboratory data showed WBC 8.0 hemoglobin 14.0 and platelets 283 D-dimer is 0.37 Sodium 138 potassium 4.7 GERD with grade bicarb is 17 BUN 14 and creatinine 0.74 A1c 6.2 LDL 102 TSH 1.43 Troponin 0.077 and 0.212. Cardiology was consulted and patient underwent catheterization today. This showed severe single-vessel coronary disease involving the proximal portion of the LAD. 03/03/2022 Patient is currently resting in the bed. Awake alert oriented 3. No further episodes of chest pain or shortness of breath. Patient did have some lightheadedness. Improved with Tylenol. Otherwise patient is Nitro Paste. Carotid Duplex Showed 50-70% stenosis in the left ICA. Echocardiogram showed ejection fraction 50-55%. Patient otherwise denied any nausea vomiting abdominal pain and diarrhea. No cough or sputum production. No other acute overnight issues. Patient is scheduled for coronary artery bypass graft on Saturday. 03/04/2022 Patient is resting in bed. Awake alert and oriented 3. No episodes of chest pain or shortness of breath overnight. No nausea vomiting or abdominal pain. No headache or dizziness or lightheadedness. No other acute overnight issues. Patient is scheduled for coronary revascularization tomorrow. Laboratory data reviewed. 03/05/2022 Patient is status post LAD/single-vessel coronary bypass graft. Postoperative day 0 Patient was transferred to MICU postsurgery. Currently intubated and on mechanical ventilator with assist control. Patient is also sedated and paralyzed. Laboratory data showed WBC 10.8 hemoglobin 11.8 and platelets 224 magnesium 1.9 Chest x-ray showed improved inspiration effort with streaky atelectasis in the left lung base postsurgical changes with lines and tubes in appropriate placement. No pneumothorax. 03/06/22. Patient seen and examined. Currently in ICU. Currently intubated and on mechanical ventilation. Vital signs stable 03/07/22. Patient seen and examined. Patient extubated yesterday. Currently sitting upright in the chair. Currently on 5 L of oxygen. Complaining of shortness of breath on exertion REVIEW OF SYSTEMS: CONSTITUTIONAL: No fever, no malaise, no fatigue. CARDIOVASCULAR: Complaining of pain at site of surgery. Denies orthopnea, PND, no palpitations, no syncope. PULMONARY: no cough, no hemoptysis. GASTROINTESTINAL: No diarrhea, no nausea, no vomiting, no abdominal pain. PHYSICAL EXAMINATION: GENERAL: Alert HEENT: Pupils are round and equally reacting to light. CARDIOVASCULAR: S1 and S2 present. No murmurs, rubs, or gallops. PULMONARY: Chest is clear to auscultation, no wheezing or crackles. Sternotomy incision seen ABDOMEN: Soft, nontender, nondistended, normoactive bowel sounds. No palpable organomegaly. MUSCULOSKELETAL: No joint swelling or deformity. EXTREMITIES: No cyanosis, clubbing, or pedal edema. NEUROLOGICAL: Currently intubated and sedated, Assessment and plan Acute non-ST elevated UT cath Showed severe LAD proximal stenosis. Status post coronary revascularization single-vessel. Severe single-vessel CAD involving the proximal LAD. Hyperlipidemia Hypertension Ongoing nicotine addiction Family history of premature coronary artery disease DVT prophylaxis Plan: Continue postop management per cardiac surgery team Aggressive bronchopulmonary hygiene. Encourage use of I-S Continue current management. Follow-up closely. Pulmonology following Objective - Vital Signs Vital signs: Vital Signs Temp 98.7 F 03/07/22 12:00 Pulse 83 03/07/22 13:00 Resp 24 03/07/22 13:00 BP 106/66 03/07/22 13:00 Pulse Ox 96 03/07/22 13:00 FiO2 50 03/06/22 12:30 Intake & Output 03/06/22 03/07/22 03/07/22 18:59 06:59 18:59 Intake Total 2149.233 643.794 879 Output Total 1155 1145 1585 Balance 994.233 -501.206 -706 Weight 112 kg 111.5 kg Intake: IV 1324 636 159 Albumin Human 5% 250 ml 500 In Empty Bag 1 bag @ 250 mls/hr IVPB Q1HR PRN Rx#: [id number] Co/Ci 90 Lactated Ringers 1,000 ml 600 600 150 @ 50 mls/hr IV .Q20H [facility] Rx#:[id number] ceFAZolin 2 gm In Sodium 50 Chloride 0.9% 50 ml @ 100 mls/hr IVPB Q8HR [facility] Rx# :[id number] pressure bag 84 36 9 Intake, IV Titration 85.233 7.794 Amount Cisatracurium 200 mg In 78.716 Sodium Chloride 0.9% 180 ml @ 1 MCG/KG/MIN 6.546 mls/hr IV .Q24H [facility] Rx#: [id number] Dexmedetomidine/0.9% NaCl 1.307 (Pmx) 400 mcg In Empty Bag 1 bag @ 0.2 MCG/KG/HR 5.6 mls/hr IV .[id number] [facility] Rx#:[id number] Insulin Regular 100 unit 5.210 7.794 In Sodium Chloride 0.9% 100 ml @ Per Protocol IV .Q0M [facility] Rx#:[id number] Oral 740 720 Output: Chest Tube Drainage 420 180 30 Chest Tube Bilateral 250 110 20 Lateral Chest Chest Tube Mediastinal 170 70 10 Urine 367 704 0179 Other: Voiding Method Indwelling Catheter Indwelling Catheter Indwelling Catheter # Voids 0 ABP, PAP, CO, CI - Last Documented Arterial Blood Pressure 87/73 Pulmonary Artery Pressure 36/18 Cardiac Output 9.7 Cardiac Index 4.3 - Labs CBC & Chem 7: 03/07/22 04:09 03/07/22 04:09 Labs: Abnormal Lab Results - Last 24 Hours (Table) 03/06/22 03/06/22 03/06/22 Range/Units 13:26 15:45 19:01 RBC (4.30-5.90) m/uL Hgb (13.0-17.5) gm/dL Hct (39.0-53.0) % Glucose (74-99) mg/dL POC Glucose (mg/dL) 115 H 115 H 175 H (70-110) mg/dL Calcium (8.4-10.2) mg/dL Total Protein (6.3-8.2) g/dL Albumin (3.5-5.0) g/dL 03/06/22 03/07/22 03/07/22 Range/Units 23:04 01:11 04:09 RBC 3.40 L (4.30-5.90) m/uL Hgb 10.3 L (13.0-17.5) gm/dL Hct 30.1 L (39.0-53.0) % Glucose (74-99) mg/dL POC Glucose (mg/dL) 117 H 131 H (70-110) mg/dL Calcium (8.4-10.2) mg/dL Total Protein (6.3-8.2) g/dL Albumin (3.5-5.0) g/dL 03/07/22 03/07/22 03/07/22 Range/Units 04:09 04:13 08:59 RBC (4.30-5.90) m/uL Hgb (13.0-17.5) gm/dL Hct (39.0-53.0) % Glucose 110 H (74-99) mg/dL POC Glucose (mg/dL) 114 H 151 H (70-110) mg/dL Calcium 8.3 L (8.4-10.2) mg/dL Total Protein 5.3 L (6.3-8.2) g/dL Albumin 3.3 L (3.5-5.0) g/dL 03/07/22 Range/Units 11:12 RBC (4.30-5.90) m/uL Hgb (13.0-17.5) gm/dL Hct (39.0-53.0) % Glucose (74-99) mg/dL POC Glucose (mg/dL) 118 H (70-110) mg/dL Calcium (8.4-10.2) mg/dL Total Protein (6.3-8.2) g/dL Albumin (3.5-5.0) g/dL Microbiology - Last 24 Hours (Table) 03/06/22 03:50 Gram Stain - Preliminary Sputum Sputum Culture - Preliminary Gram Neg Bacilli
[2022-03-07] MEDS: ACETYLCYSTEINE 800 MG/4 ML VIAL INHALATION SCH ×2 (15:24→20:03)
[2022-03-07] MEDS ORDERED: PIPERACILLIN-TAZOBACTAM 3.375 GM in SODIUM CHLORIDE 0.9% 100 ML IVPB SCH (16:00)
[2022-03-07 16:32] LABS: Glucose,Whole Blood 102 mg/dL (70-110)
[2022-03-07 20:10] LABS: Glucose,Whole Blood 142 mg/dL (70-110)
[2022-03-07] MEDS: SENNOSIDES-DOCUSATE SODIUM 1 EACH TAB PO SCH (20:11)
[2022-03-08] MEDS: HEPARIN SODIUM,PORCINE/PF 5,000 UNIT/0.5 ML SYRINGE SQ SCH ×4 (00:13→23:52)
[2022-03-08] MEDS: KETOROLAC 15 MG/ML 1 ML VIAL IVP SCH ×3 (00:14→12:52)
[2022-03-08 06:31] LABS: Basophils % (A) 0 %; Eosinophils # (A) 0.2 k/uL (0-0.7); Eosinophils % (A) 2 %; HCT 30.9 % (39.0-53.0); HGB 10.6 gm/dL (13.0-17.5); Lymphocytes # (A) 1.8 k/uL (1.0-4.8); Lymphocytes % (A) 21 %; MCH 30.6 pg (25.0-35.0); MCHC 34.4 g/dL (31.0-37.0); Mean Platelet Volume 8.2; Monocytes # (A) 0.8 k/uL (0-1.0); Monocytes % (A) 9 %; Neutrophils # (A) 5.5 k/uL (1.3-7.7); Neutrophils % (A) 65 %; Platelet Count 190 k/uL (150-450); RBC 3.48 m/uL (4.30-5.90); WBC 8.5 k/uL (3.8-10.6)
[2022-03-08] MEDS: PANTOPRAZOLE 40 MG TABLET PO SCH (06:49)
[2022-03-08] MEDS: INSULIN ASPART (NovoLOG) 100 UNIT/ML VIAL SQ SCH ×4 (06:49→21:06)
[2022-03-08 06:51] LABS: Glucose,Whole Blood 117 mg/dL (70-110)
[2022-03-08] MEDS ORDERED: HYDROcodone/APAP 5-325MG 1 EACH TAB PO PRN (06:52)
[2022-03-08 06:56] LABS: ALT 22 U/L (4-49); AST 27 U/L (17-59); African American GFR (CKD) >90 (>60 ml/min/1.73 sqM); Albumin 3.3 g/dL (3.5-5.0); Alkaline Phosphatase 54 U/L (38-126); Anion Gap 8 mmol/L; Blood Urea Nitrogen 13 mg/dL (9-20); Calcium 8.3 mg/dL (8.4-10.2); Carbon Dioxide 26 mmol/L (22-30); Chloride 103 mmol/L (98-107); Glucose 104 mg/dL (74-99); Non-African American GFR(CKD) >90 (>60 ml/min/1.73 sqM); Potassium 3.9 mmol/L (3.5-5.1); Sodium 137 mmol/L (137-145); Total Bilirubin 0.7 mg/dL (0.2-1.3); Total Protein 5.3 g/dL (6.3-8.2)
[2022-03-08] MEDS ORDERED: FUROSEMIDE 10 MG/ML 2 ML VIAL IV STA (06:58)
[2022-03-08] MEDS ORDERED: POTASSIUM CHLORIDE ER 20 MEQ TAB.ER PO STA (06:58)
--- NOTE | 2022-03-08 07:36 | P.PN ---
Subjective Progress Note Date: 03/08/22 Principal diagnosis: Coronary artery disease, non-ST elevated myocardial infarction this admission. Previous medical history of hypertension, hyperlipidemia, chronic ongoing tobac co dependence, depression, frequent diarrhea with occasional bloody stools, and family history of premature coronary artery disease with his mother having a myocardial infarction at age 48. Left internal carotid artery stenosis 50-70% POD #3 off-pump coronary artery bypass grafting 1 vessel, left internal mammary artery to left anterior descending coronary artery, lysis of adhesions, graft flow measurements using the Medistim system, and intraoperative transesophageal echocardiogram completed by anesthesia. Postoperative acute blood loss anemia, expected due to hemodilution. Prolonged mechanical ventilation secondary to hypoxemia, with possible secondary effects from Cleviprex drip The patient was seen and examined this morning sitting up in a recliner in the intensive care unit in no acute distress. States pain is controlled on current medication regimen, denies shortness of breath. Remains in sinus rhythm and hemodynamically stable on no inotropes or pressors. He does remain on 5 L nasal cannula and is able to achieve 1500 mL on his incentive spirometry. He been ambulatory without difficulty. He received first postoperative shower this morning. Sputum culture preliminary demonstrating gram-negative bacilli, patient has remained afebrile, WBC 8.5. All lines and tubes were discontinued yesterday. No other new concerns. Objective - Vital Signs Vital signs: Vital Signs Temp 98.8 F 03/08/22 00:00 Pulse 79 03/08/22 07:00 Resp 21 03/08/22 07:00 BP 127/71 03/08/22 07:00 Pulse Ox 95 03/08/22 07:00 FiO2 50 03/06/22 12:30 Intake & Output 03/07/22 03/08/22 03/08/22 18:59 06:59 18:59 Intake Total 1839 200 Output Total 2360 500 0 Balance -521 -300 0 Weight 110.6 kg Intake: IV 159 Lactated Ringers 1,000 ml 150 @ 50 mls/hr IV .Q20H RICHA Rx#:[id number] pressure bag 9 Oral 1680 200 Output: Chest Tube Drainage 30 Chest Tube Bilateral 20 Lateral Chest Chest Tube Mediastinal 10 Urine 2330 500 0 Other: Voiding Method Indwelling Catheter Indwelling Catheter # Voids 0 0 0 ABP, PAP, CO, CI - Last Documented Arterial Blood Pressure 87/73 Pulmonary Artery Pressure 36/18 Cardiac Output 9.7 Cardiac Index 4.3 - Exam CONSTITUTIONAL: Appears comfortable, cooperative, no acute distress RESPIRATORY: Lungs sounds diminished bilaterally. Respirations even, nonlabored. Currently on 5 L nasal cannula with oxygen saturation 96%. Able to achieve 1500 mL on incentive spirometry. Strong productive cough. CARDIOVASCULAR: S1, S2 present. Regular rate and rhythm, sinus rhythm on telemetry. Sternum stable. Palpable peripheral pulses bilaterally. Trace generalized edema present. No calf pain or tenderness noted. Heart hugger in place with patient demonstrating appropriate use. Antiembolism stockings, SCDs present. GASTROINTESTINAL: Abdomen soft, nontender, nondistended. Active bowel sounds present 4 quadrants. Tolerating diet. Positive flatus GENITOURINARY: Loya discontinued yesterday, patient continues to void. Output 2830 mL in the last 24 hours INTEGUMENTARY: Skin is warm and dry with evidence of good perfusion. Anterior chest incision well approximated and covered with dry intact dressing. NEUROLOGIC: Cranial nerves II through XII intact MUSKULOSKELETAL: Able to move all extremities, strength equal bilaterally, gait normal PSYCHIATRIC: Alert and oriented to person place and time, appropriate affect, intact judgment and insight - Allied health notes Allied health notes reviewed: nursing - Labs CBC & Chem 7: 03/08/22 05:42 03/08/22 05:42 Labs: Abnormal Lab Results - Last 24 Hours (Table) 03/07/22 03/07/22 03/07/22 Range/Units 08:59 11:12 20:08 RBC (4.30-5.90) m/uL Hgb (13.0-17.5) gm/dL Hct (39.0-53.0) % Glucose (74-99) mg/dL POC Glucose (mg/dL) 151 H 118 H 142 H (70-110) mg/dL Calcium (8.4-10.2) mg/dL Total Protein (6.3-8.2) g/dL Albumin (3.5-5.0) g/dL 03/08/22 03/08/22 03/08/22 Range/Units 05:42 05:42 06:46 RBC 3.48 L (4.30-5.90) m/uL Hgb 10.6 L (13.0-17.5) gm/dL Hct 30.9 L (39.0-53.0) % Glucose 104 H (74-99) mg/dL POC Glucose (mg/dL) 117 H (70-110) mg/dL Calcium 8.3 L (8.4-10.2) mg/dL Total Protein 5.3 L (6.3-8.2) g/dL Albumin 3.3 L (3.5-5.0) g/dL Microbiology - Last 24 Hours (Table) 03/06/22 03:50 Gram Stain - Preliminary Sputum Sputum Culture - Preliminary Gram Neg Bacilli - Imaging and Cardiology Chest x-ray: image reviewed Assessment and Plan Assessment: 1. Coronary artery disease, non-ST elevated myocardial infarction this admission, status post single-vessel CABG 2. History of hypertension 3. Hyperlipidemia, treated, cholesterol 168, LDL 107 4. Chronic ongoing tobacco dependence, preoperative FEV1 110% of predicted 5. Depression 6. History of frequent diarrhea with occasional bloody stools 7. Family history of premature coronary artery disease with his mother having a myocardial infarction at age 48 8. Left internal carotid artery stenosis 50-70% 9. Postoperative acute blood loss anemia, expected due to hemodilution. 10. Prolonged mechanical ventilation secondary to hypoxemia, with possible secondary effects from Cleviprex drip Plan: 1. Continue to maximize medical therapy with full strength aspirin, statin, Plavix and beta shahid. Will increase beta shahid therapy as tolerated 2. Wean O2 as tolerated, encourage incentive spirometry 10 times every hour while awake. Bronchodilators per pulmonology 3. Increase activity, ambulate as tolerated. PT/OT/cardiac rehab following. 4. Will monitor daily labs and chest x-ray. Electrolyte replacement per protocol. Will give Lasix and supplemental potassium today 5. Pain control with current medication regimen. 6. Insulin management per internal medicine. Patient is not diabetic, preoperative hemaglobin A1c 6.2%. 7. Strict accurate intake and output 8. Smoking cessation counseling and education provided. Denies need for smokin g cessation medication at this time, will coordinate with outpatient primary care service for follow-up 9. Will place transfer orders for 3 S. cardiac stepdown unit. May transfer from bed available 10. Will discuss antibiotics with pulmonary medicine, may wait until cultures are finalized as patient is afebrile with no leukocytosis 11. Discharge planning in progress. Anticipate discharge to home with home care soon 12. More recommendations to follow based on patient's clinical course
[2022-03-08] MEDS: ACETYLCYSTEINE 800 MG/4 ML VIAL INHALATION SCH ×4 (07:52→20:15)
[2022-03-08] MEDS: IPRATROPIUM-ALBUTEROL 3 ML NEB INHALATION SCH ×4 (07:52→20:15)
--- NOTE | 2022-03-08 08:20 | PN ---
PROGRESS NOTE SUBJECTIVE: Mr. De Los Santos is status post aortocoronary bypass surgery off-pump. He has been extubated. He feels better. His oxygenation has improved. OBJECTIVE: VITAL SIGNS: His vitals are stable. HEART: S1, S2 heard normally. Pericardial rub is evident. LUNGS: Reveal diminished air entry. ABDOMEN: Exam unchanged. LOWER EXTREMITIES: Exam unchanged. PLAN: I am recommending a limited echo to be performed tomorrow just to check the status of his pericardial adhesions. He has audible rub and has had some pericardial adhesions intraoperatively. MMODL / IJN: [id number] /
[2022-03-08] MEDS: ATORVASTATIN 40 MG TAB PO SCH (09:03)
[2022-03-08] MEDS: METOPROLOL TARTRATE 25 MG TAB PO SCH ×2 (09:03→20:59)
[2022-03-08] MEDS: CLOPIDOGREL 75 MG TAB PO SCH (09:03)
[2022-03-08] MEDS: MUPIROCIN 2% OINT 22 GM TUBE NASAL SCH ×2 (09:04→21:06)
[2022-03-08] MEDS: ASPIRIN 325 MG TAB PO SCH (09:04)
--- NOTE | 2022-03-08 09:25 | XR ---
EXAMINATION TYPE: XR chest 2V DATE OF EXAM: 03/08/2022 COMPARISON: 03/08/2022 TECHNIQUE: PA and lateral views submitted. HISTORY: Postop CABG FINDINGS: Limited inspiration with postsurgical change, bilateral infiltrate and pleural effusion. Diffuse inte rstitial pattern. No sizable pneumothorax. Mediastinal drain and chest tubes have been removed. IMPRESSION: 1. Postoperative change persistent bilateral infiltrate, pleural effusion. Correlate for underlying v enous congestion. 2. No sizable pneumothorax.
[2022-03-08] MEDS: VORTIOXETINE HYDROBROMIDE 10 MG TABLET PO SCH (09:34)
[2022-03-08] MEDS ORDERED: AMOXIC-POT CLAV 875-125MG 1 EACH TAB PO SCH (09:45)
--- NOTE | 2022-03-08 10:08 | CA ---
Transthoracic Echo Report Name: Rambo De Los Santos Age: 46 Gender: M : 1975 Exam Date: 03/08/2022 08:03 Exam Location: [facility] Ht (in): 70 Wt (lb): 245 Ordering Physician: Rylan Cardenas MD ([id number]) Attending/Referring Phys: Hydraulics Engineer Louise Moyer RDCS Procedure CPT: Indications: pericardial Cardiac Hx: Technical Quality: Fair Contrast 1: Total Dose (mL): Contrast 2: Total Dose (mL): MEASUREMENTS (Male / Female) Normal Values 2D ECHO RV Internal Dim ED PLAX 3.3 cm FINDINGS Left Ventricle Left ventricular ejection fraction is estimated at 55-60 %. Right Ventricle Right Atrium Left Atrium Mitral Valve Aortic Valve Tricuspid Valve Pulmonic Valve Pericardium Normal pericardium. No pericardial effusion. Aorta CONCLUSIONS Limited echo. Normal left ventricle size and systolic function No pericardial effusion Previewed by: Dr. Ofelia Pearce MD (Electronically Signed) Final Date: 08 March 2022 10:07
--- NOTE | 2022-03-08 10:44 | P.PN ---
Subjective Progress Note Date: 03/08/22 Principal diagnosis: Status post single-vessel bypass. Coronary artery disease, scheduled for CABG in a.m. This is a 46-year-old white male, 67-[id number] smoking history, known history of dyslipidemia, strong family history of coronary artery disease, mother had VT in her 40s, patient presented to the ER with chest discomfort. Patient felt that the pain was left-sided, radiating to upper extremities, it was associated with slight shortness of breath and nausea/diaphoresis. Patient was seen by cardiology and felt to have non-ST elevation myocardial infarction. Patient un derwent cardiac catheterization, he was found to have significant extensive LAD disease, patient was advised by cardiology to have myocardial revascularization, and this is scheduled to be done next Saturday. We were asked to see the patient on consultation for pulmonary clearance. Patient doesn't smoke, and he denies any symptoms of cough wheezing or shortness of breath. Never been diagnosed wit h COPD, not on any inhalers. Patient has been quite active able to walk a mile easily and able to climb a few flights of stairs without any difficulty. Again he had no previous documented pulmonary bedside PFT is pending Reevaluated today on 03/06/22, patient is doing great, asymptomatic, in no di stress, scheduled for myocardial revascularization in a.m. Progress note dated 03/05/2022. Today is postop day #0, status post SAHU to LAD single-vessel off-pump bypass. The patient came back to the ICU, and room 264, and initially, he was on the volume assist control, rate 16, tidal volume 550, FiO2 100%, and PEEP of 10. Initial blood gases showed a pO2 of 165, pCO2 of 40, pH is 7.38. FiO2 was dropped down to 40%. Subsequent to that, the patient's saturations dropped down into the 80s and even high 70s. A repeat blood gas showed a pO2 of 53, pCO2 of 46, and pH is 7.33. The patient was increased back up to 100%. Currently, the patient's on IV nitroglycerin at 5 mcg/m, propofol at 50 mcg/kg/m, and Cleveprex at 2 mg an hour. I was called down to the intensive care unit, because of the low saturations. I assessed the patient at the bedside. The chest x-ray initially looked better than the subsequent chest x-ray which seemed to show some bilateral infiltrates. Could relate to pulmonary edema. In addition, I felt endotracheal tube she be pushed down 1 cm. Also, I decided to paralyzed the patient, giving him 10 mg a Nimbex IV push, and then a drip at 2 mcg/kg/m, with the idea that we would keep him paralyzed, overnight, and work on getting him extubated in the morning. Additional labs today include a white count of 8.9, hemoglobin 10.1, hematocrit 28.5, and a platelet count of 289,000. Sodium 140, potassium 3.8, chlorides 110, CO2 22, with a normal anion gap, BUN, and creatinine. All x-rays from today were reviewed. Progress note dated 03/06/2022. Today is postop day #1, status post SAHU to LAD single-vessel, off pump bypass. The patient is seen today in room 264. Initially, his saturations are quite low, we had the sedating and paralyzing him, to control him over the evening. Currently, he is on the volume assist control, rate of 16, tidal volume 550, FiO2 50%, and PEEP of 13. The PEEP will be dropped from 13 to 10. Blood gases show a PaO2 of 160, pCO2 49, and a pH is 7.34. Those blood gases were done on 60%. Currently, the patient is on lactated Ringer's at 50 mL an hour, insulin drip at 0.5 units an hour, and propofol at 50 mcg/kg/m. Earlier this morning, I called the ICU and had them turn off the Nimbex. The patient's cardiac output is 7.3 with an index of 3.2. White count 10.8, hemoglobin 11.5, hematocrit 32.6, with a platelet count of 198,000. Sodium 135, potassium 4.6, chlorides 103, CO2 24, BUN 8, creatinine 0.67. Chest x-ray shows changes of venous congestion, and small bilateral effusions, with some bibasilar atelectasis. Progress note dated 03/07/2022. Postop day #2, status post SAHU to LAD single-vessel off-pump bypass. The patient is again seen in room 264. He is currently on 7 L of oxygen by nasal cannula. He is getting lactated Ringer's at 30 mL an hour. He seems much more awake and alert. He is doing hourly incentive spirometer usage. White count 8.5, hemoglobin 10.3, hematocrit 30.1, and platelet count 157,000. Sodium, potassium, chloride, CO2, anion gap, BUN, and creatinine are all normal. C alcium is 8.3. Albumin is 3.3. Chest x-ray shows bibasilar atelectasis, and small lung volumes. Progress note dated 03/08/2022. Postop day #3, status post SAHU to LAD single-vessel, off pump bypass. The patient is again seen in room 264. He is down to 5 L of oxygen. No IV fluids. Today's postop day #3. His sputum is showing evidence of Enterobacter cloacae, and he was placed on Rocephin. Clinically he is doing much better. He is a candidate to move out of the ICU. White count 8.5, hemoglobin 10.6, hematocrit 30.9, and platelet count is normal. Sodium, potassium, chloride, CO2, anion gap, BUN, and creatinine are all normal. Albumin is 3.3. Chest x-ray shows some postoperative changes, bilateral effusions, and small lung volumes. No pneumothorax is seen. Objective - Vital Signs Vital signs: Vital Signs Temp 98.1 F 03/08/22 08:00 Pulse 92 03/08/22 09:00 Resp 16 03/08/22 09:00 BP 114/60 03/08/22 09:00 Pulse Ox 91 L 03/08/22 09:16 FiO2 50 03/06/22 12:30 Intake & Output 03/07/22 03/08/22 03/08/22 18:59 06:59 18:59 Intake Total 1839 200 Output Total 2360 500 0 Balance -521 -300 0 Weight 110.6 kg Intake: IV 159 Lactated Ringers 1,000 ml 150 @ 50 mls/hr IV .Q20H RICHA Rx#:[id number] pressure bag 9 Oral 1680 200 Output: Chest Tube Drainage 30 Chest Tube Bilateral 20 Lateral Chest Chest Tube Mediastinal 10 Urine 2330 500 0 Other: Voiding Method Indwelling Catheter Indwelling Catheter # Voids 0 0 1 # Bowel Movements 1 ABP, PAP, CO, CI - Last Documented Arterial Blood Pressure 87/73 Pulmonary Artery Pressure 36/18 Cardiac Output 9.7 Cardiac Index 4.3 - Exam Awake and alert, extubated, on 5 L of oxygen. No respiratory distress, use of accessory muscles, or conversational dyspnea. HEENT examination is grossly unremarkable. Neck supple. Full range of motion. No adenopathy thyromegaly or neck vein distention. Cardiovascular examination reveals regular rhythm rate. S1-S2 normal. No S3 or S4. No discernible murmur noted. Heart rate 92 bpm. Lungs reveal scattered bilateral rhonchi. No wheezes or crackles. Breath sounds equal bilaterally. Saturations improved to 95 %. Abdomen soft bowel sounds are heard. No masses or tenderness. Extremities are intact. No cyanosis clubbing or edema. Skin is without rash or lesion. Neurologic examination is brief but nonfocal. - Labs CBC & Chem 7: 03/08/22 05:42 03/08/22 05:42 Labs: Abnormal Lab Results - Last 24 Hours (Table) 03/07/22 03/07/22 03/08/22 Range/Units 11:12 20:08 05:42 RBC 3.48 L (4.30-5.90) m/uL Hgb 10.6 L (13.0-17.5) gm/dL Hct 30.9 L (39.0-53.0) % Glucose (74-99) mg/dL POC Glucose (mg/dL) 118 H 142 H (70-110) mg/dL Calcium (8.4-10.2) mg/dL Total Protein (6.3-8.2) g/dL Albumin (3.5-5.0) g/dL 03/08/22 03/08/22 Range/Units 05:42 06:46 RBC (4.30-5.90) m/uL Hgb (13.0-17.5) gm/dL Hct (39.0-53.0) % Glucose 104 H (74-99) mg/dL POC Glucose (mg/dL) 117 H (70-110) mg/dL Calcium 8.3 L (8.4-10.2) mg/dL Total Protein 5.3 L (6.3-8.2) g/dL Albumin 3.3 L (3.5-5.0) g/dL Microbiology - Last 24 Hours (Table) 03/06/22 03:50 Gram Stain - Final Sputum Sputum Culture - Final Enterobacter cloacae Assessment and Plan Assessment: Postop day #3, status post single-vessel bypass, SAHU to LAD, off pump. Routine postoperative ventilator management, with successful extubation on March 06. Enterobacter cloacae tracheobronchitis. Postoperative hypoxemia, which may relate to fluid overload, and/or the effects of Cleveprex, on compensatory hypoxic vasoconstriction. Chronic nicotine dependence. Family history of premature coronary disease. Hyperlipidemia. Plan: Plan dated 03/05/2022. The patient came back to the intensive care unit, with an initial blood gas showing a pO2 of 165 on 10 of PEEP. The FiO2 was dropped down to 40%. The patient saturations drop, and the repeat PaO2 was only 53. The FiO2 was then increased back up to 100%. I was called down to the ICU, to evaluate the patient. X-rays were reviewed. The patient was a bit agitated and moving his head from [id number], and probably biting down on the endotracheal tube. I decided to paralyze the patient with tendon Nimbex IV push, and immediately, the patient's saturations improved. He also placed endotracheal tube down 1 cm. The patient was placed on Nimbex drip at 2 mcg/kg/m. The patient will remain p aralyzed overnight. Additional recommendations and suggestions are forthcoming. Labs, x-rays, and medications are reviewed. A repeat blood gas will be done in about an hour. Plan dated 03/06/2022. The patient's Nimbex was discontinued. The patient will be placed on dexmedetomidine. The PEEP levels decreased from 13, down to 10. We will eventually be decreased down to 8. Once the patient is fully awake, the patient will be placed on pressure support of 8, and CPAP of 5. Of course, we'll do a daily interruption of sedation, and a spontaneous breathing trial. The patient may be a candidate for weaning and extubation. Labs, x-rays, and medications are reviewed. Prognosis is certainly guarded. No additional recommendations are made at this time. Plan dated 03/07/2022. The patient is postop day #2. Labs, x-rays, and medications are all reviewed. The patient was successfully extubated yesterday after a daily interruption of sedation. The patient appears to be doing relatively well. He continues to deep breathe, cough, and clear secretions. We also recommend hourly use of incentive spirometer. No additional recommendations are made. We will continue to follow the patient make recommendations along the way. Plan dated 03/08/2022. The patient is started on Rocephin for the Enterobacter in the sputum. Labs, x- rays, medications are reviewed. The patient has been weaned on the 5 L. The patient will likely be transferred out of the intensive care unit today. To day's postop day #3. Additional recommendations and suggestions are forthcoming. We recommend hourly use of incentive spirometer. We will continue to follow the patient make recommendations along the way. Time with Patient: Less than 30
[2022-03-08 11:07] LABS: Glucose,Whole Blood 111 mg/dL (70-110)
--- NOTE | 2022-03-08 14:04 | P.PN ---
Subjective Progress Note Date: 03/08/22 Patient is a 46-year-old male with a known history of anxiety, currently every day smoker presents to ER with complaints of chest pain. Patient says that today morning when he was getting ready to go to work he felt like heartburn- like sensation in the mid retrosternal region. He also had pain on bilateral arms associated with nausea and mild shortness of breath. He felt fuzzy and diaphoretic. Pain was getting worse which made him to come to ER. Patient states that he has been having fluttering of the heart on and off for the past couple of weeks. Chest pain did improve by the time he come to ER. Denied any complaints of fever or chills. No cough or sputum production. No leg swelling. Denied any recent illnesses or sick contacts. Family history of coronary artery disease in his mother at age 48 and patient does smoke daily. EKG showed sinus rhythm with ST-T wave abnormalities Chest x-ray showed no acute cardiopulmonary process Laboratory data showed WBC 8.0 hemoglobin 14.0 and platelets 283 D-dimer is 0.37 Sodium 138 potassium 4.7 GERD with grade bicarb is 17 BUN 14 and creatinine 0.74 A1c 6.2 LDL 102 TSH 1.43 Troponin 0.077 and 0.212. Cardiology was consulted and patient underwent catheterization today. This showed severe single-vessel coronary disease involving the proximal portion of the LAD. 03/03/2022 Patient is currently resting in the bed. Awake alert oriented 3. No further episodes of chest pain or shortness of breath. Patient did have some lightheadedness. Improved with Tylenol. Otherwise patient is Nitro Paste. Carotid Duplex Showed 50-70% stenosis in the left ICA. Echocardiogram showed ejection fraction 50-55%. Patient otherwise denied any nausea vomiting abdominal pain and diarrhea. No cough or sputum production. No other acute overnight issues. Patient is scheduled for coronary artery bypass graft on Saturday. 03/04/2022 Patient is resting in bed. Awake alert and oriented 3. No episodes of chest pain or shortness of breath overnight. No nausea vomiting or abdominal pain. No headache or dizziness or lightheadedness. No other acute overnight issues. Patient is scheduled for coronary revascularization tomorrow. Laboratory data reviewed. 03/05/2022 Patient is status post LAD/single-vessel coronary bypass graft. Postoperative day 0 Patient was transferred to MICU postsurgery. Currently intubated and on mechanical ventilator with assist control. Patient is also sedated and paralyzed. Laboratory data showed WBC 10.8 hemoglobin 11.8 and platelets 224 magnesium 1.9 Chest x-ray showed improved inspiration effort with streaky atelectasis in the left lung base postsurgical changes with lines and tubes in appropriate placement. No pneumothorax. 03/06/22. Patient seen and examined. Currently in ICU. Currently intubated and on mechanical ventilation. Vital signs stable 03/07/22. Patient seen and examined. Patient extubated yesterday. Currently sitting upright in the chair. Currently on 5 L of oxygen. Complaining of shortness of breath on exertion 03/08/22. Patient seen and examined. Currently sitting upright in the chair. Complaining productive cough. Complaining of shortness of breath. Currently on 4 L ofOxygen REVIEW OF SYSTEMS: CONSTITUTIONAL: No fever, no malaise, no fatigue. CARDIOVASCULAR: Complaining of pain at site of surgery. Denies orthopnea, PND, no palpitations, no syncope. PULMONARY: no cough, no hemoptysis. GASTROINTESTINAL: No diarrhea, no nausea, no vomiting, no abdominal pain. PHYSICAL EXAMINATION: GENERAL: Alert and oriented 3 HEENT: Pupils are round and equally reacting to light. CARDIOVASCULAR: S1 and S2 present. No murmurs, rubs, or gallops. PULMONARY: Chest is clear to auscultation, no wheezing or crackles. Sternotomy incision seen ABDOMEN: Soft, nontender, nondistended, normoactive bowel sounds. No palpable organomegaly. MUSCULOSKELETAL: No joint swelling or deformity. EXTREMITIES: No cyanosis, clubbing, or pedal edema. Assessment and plan Acute non-ST elevated MO cath Showed severe LAD proximal stenosis. Status post coronary revascularization single-vessel. Severe single-vessel CAD involving the proximal LAD. Hyperlipidemia Hypertension Ongoing nicotine addiction Family history of premature coronary artery disease DVT prophylaxis Plan: Continue postop management per cardiac surgery team Aggressive bronchopulmonary hygiene. Encourage use of I-S Sputum culture growing Enterobacter CloacE Started patient on Rocephin Continue current management. Patient being transferred out of ICU Pulmonology following Objective - Vital Signs Vital signs: Vital Signs Temp 98.8 F 03/08/22 12:00 Pulse 80 03/08/22 12:00 Resp 24 03/08/22 12:00 BP 110/67 03/08/22 12:00 Pulse Ox 94 L 03/08/22 12:00 FiO2 50 03/06/22 12:30 Intake & Output 03/07/22 03/08/22 03/08/22 18:59 06:59 18:59 Intake Total 1839 200 Output Total 2360 500 0 Balance -521 -300 0 Weight 110.6 kg Intake: IV 159 Lactated Ringers 1,000 ml 150 @ 50 mls/hr IV .Q20H RICHA Rx#:[id number] pressure bag 9 Oral 1680 200 Output: Chest Tube Drainage 30 Chest Tube Bilateral 20 Lateral Chest Chest Tube Mediastinal 10 Urine 2330 500 0 Other: Voiding Method Indwelling Catheter Indwelling Catheter # Voids 0 0 1 # Bowel Movements 1 ABP, PAP, CO, CI - Last Documented Arterial Blood Pressure 87/73 Pulmonary Artery Pressure 36/18 Cardiac Output 9.7 Cardiac Index 4.3 - Labs CBC & Chem 7: 03/08/22 05:42 03/08/22 05:42 Labs: Abnormal Lab Results - Last 24 Hours (Table) 03/07/22 03/08/22 03/08/22 Range/Units 20:08 05:42 05:42 RBC 3.48 L (4.30-5.90) m/uL Hgb 10.6 L (13.0-17.5) gm/dL Hct 30.9 L (39.0-53.0) % Glucose 104 H (74-99) mg/dL POC Glucose (mg/dL) 142 H (70-110) mg/dL Calcium 8.3 L (8.4-10.2) mg/dL Total Protein 5.3 L (6.3-8.2) g/dL Albumin 3.3 L (3.5-5.0) g/dL 03/08/22 03/08/22 Range/Units 06:46 11:05 RBC (4.30-5.90) m/uL Hgb (13.0-17.5) gm/dL Hct (39.0-53.0) % Glucose (74-99) mg/dL POC Glucose (mg/dL) 117 H 111 H (70-110) mg/dL Calcium (8.4-10.2) mg/dL Total Protein (6.3-8.2) g/dL Albumin (3.5-5.0) g/dL Microbiology - Last 24 Hours (Table) 03/06/22 03:50 Gram Stain - Final Sputum Sputum Culture - Final Enterobacter cloacae
[2022-03-08 16:16] LABS: Glucose,Whole Blood 137 mg/dL (70-110)
[2022-03-08] MEDS: SENNOSIDES-DOCUSATE SODIUM 1 EACH TAB PO SCH (20:59)
[2022-03-08] MEDS: NICOTINE 14MG/24HR PATCH TRANSDERM SCH (20:59)
[2022-03-08] MEDS: ACETAMINOPHEN TAB 500 MG TAB PO PRN (21:00)
[2022-03-08 21:01] LABS: Glucose,Whole Blood 132 mg/dL (70-110)
--- NOTE | 2022-03-09 05:38 | PN ---
PROGRESS NOTE SUBJECTIVE: Mr. De Los Santos is status post bypass surgery. He is doing better compared to yesterday. He is still on high 5 L of oxygen. Oxygenation is decent. He will have a limited echo today to assess the status of his pericardium, there were lot of adhesions apparently. His blood pressure is good. Oxygenation is fairly decent, but he is on 5 L of oxygen. OBJECTIVE: HEART: S1, S2 heard normally, but distantly. LUNGS: Reveal diminished bilateral air entry. ABDOMEN: Soft, nontender. LOWER EXTREMITIES: Reveal diminished pulses. No edema. CENTRAL NERVOUS SYSTEM: Grossly within normal limits. Clinically, the patient is not in heart failure. His chest x-ray that was performed earlier today suggests bilateral persistent infiltrates and small pleural effusions. We would continue incentive spirometry. MMODL / IJN: [id number] /
[2022-03-09 06:25] LABS: Glucose,Whole Blood 111 mg/dL (70-110)
[2022-03-09] MEDS: INSULIN ASPART (NovoLOG) 100 UNIT/ML VIAL SQ SCH ×4 (06:25→21:34)
[2022-03-09] MEDS: PANTOPRAZOLE 40 MG TABLET PO SCH (06:27)
[2022-03-09] MEDS: IPRATROPIUM-ALBUTEROL 3 ML NEB INHALATION SCH ×4 (08:07→19:32)
[2022-03-09] MEDS: ACETYLCYSTEINE 800 MG/4 ML VIAL INHALATION SCH ×4 (08:07→19:31)
--- NOTE | 2022-03-09 08:10 | P.PN ---
Subjective Progress Note Date: 03/09/22 Principal diagnosis: Coronary artery disease, non-ST elevated myocardial infarction this admission. Previous medical history of hypertension, hyperlipidemia, chronic ongoing tobac co dependence, depression, frequent diarrhea with occasional bloody stools, and family history of premature coronary artery disease with his mother having a myocardial infarction at age 48. Left internal carotid artery stenosis 50-70% POD #4 off-pump coronary artery bypass grafting 1 vessel, left internal mammary artery to left anterior descending coronary artery, lysis of adhesions, graft flow measurements using the Medistim system, and intraoperative transesophageal echocardiogram completed by anesthesia. Postoperative acute blood loss anemia, expected due to hemodilution. Prolonged mechanical ventilation secondary to hypoxemia, with possible secondary effects from Cleviprex drip Sputum culture positive for Enterobacter cloacae, WBC normal, remains afebrile The patient was seen and examined this morning sitting up in a recliner on the cardiac stepdown unit in no acute distress. States pain is controlled on current medication regimen, denies shortness of breath. States he feels much better today. Remains in sinus rhythm and hemodynamically stable. Currently on room air, able to achieve 1500 mL on his incentive spirometry. He been ambulatory without difficulty. Started on IV Rocephin yesterday. No other new concerns. Objective - Vital Signs Vital signs: Vital Signs Temp 97.9 F 03/08/22 20:00 Pulse 82 03/09/22 04:00 Resp 18 03/09/22 04:00 BP 124/83 03/09/22 04:00 Pulse Ox 91 L 03/09/22 04:00 FiO2 50 03/06/22 12:30 Intake & Output 03/08/22 03/09/22 03/09/22 18:59 06:59 18:59 Intake Total 500 Output Total 400 Balance 100 Intake: Oral 500 Output: Urine 400 Other: Voiding Method Toilet Toilet # Voids 1 2 # Bowel Movements 1 ABP, PAP, CO, CI - Last Documented Arterial Blood Pressure 87/73 Pulmonary Artery Pressure 36/18 Cardiac Output 9.7 Cardiac Index 4.3 - Exam CONSTITUTIONAL: Appears comfortable, cooperative, no acute distress RESPIRATORY: Lungs sounds diminished bilaterally. Respirations even, nonlabored. Currently on room air with oxygen saturation 91%. Able to achieve 1500 mL on incentive spirometry. Strong productive cough. CARDIOVASCULAR: S1, S2 present. Regular rate and rhythm, sinus rhythm on telemetry. Sternum stable. Palpable peripheral pulses bilaterally. No edema present. No calf pain or tenderness noted. Heart hugger in place with patient demonstrating appropriate use. Antiembolism stockings, SCDs present. GASTROINTESTINAL: Abdomen soft, nontender, nondistended. Active bowel sounds present 4 quadrants. Tolerating diet. Positive bowel movement yesterday GENITOURINARY: Continues to void INTEGUMENTARY: Skin is warm and dry with evidence of good perfusion. Anterior chest incision well approximated NEUROLOGIC: Cranial nerves II through XII intact MUSKULOSKELETAL: Able to move all extremities, strength equal bilaterally, gait normal PSYCHIATRIC: Alert and oriented to person place and time, appropriate affect, intact judgment and insight - Allied health notes Allied health notes reviewed: nursing - Labs CBC & Chem 7: 03/09/22 07:32 03/08/22 05:42 Labs: Abnormal Lab Results - Last 24 Hours (Table) 03/08/22 03/08/22 03/08/22 Range/Units 11:05 16:15 21:00 POC Glucose (mg/dL) 111 H 137 H 132 H (70-110) mg/dL 03/09/22 Range/Units 06:24 POC Glucose (mg/dL) 111 H (70-110) mg/dL Microbiology - Last 24 Hours (Table) 03/06/22 03:50 Gram Stain - Final Sputum Sputum Culture - Final Enterobacter cloacae - Imaging and Cardiology Chest x-ray: image reviewed Assessment and Plan Assessment: 1. Coronary artery disease, non-ST elevated myocardial infarction this admission, status post single-vessel CABG 2. History of hypertension 3. Hyperlipidemia, treated, cholesterol 168, LDL 107 4. Chronic ongoing tobacco dependence, preoperative FEV1 110% of predicted 5. Depression 6. History of frequent diarrhea with occasional bloody stools 7. Family history of premature coronary artery disease with his mother having a myocardial infarction at age 48 8. Left internal carotid artery stenosis 50-70% 9. Postoperative acute blood loss anemia, expected due to hemodilution. 10. Prolonged mechanical ventilation secondary to hypoxemia, with possible secondary effects from Cleviprex drip 11. Sputum culture positive for Enterobacter cloacae Plan: 1. Continue to maximize medical therapy with full strength aspirin, statin, Plavix and beta shahid. Will increase beta shahid therapy as tolerated 2. Encourage incentive spirometry 10 times every hour while awake. Bronch odilators per pulmonology 3. Increase activity, ambulate as tolerated. PT/OT/cardiac rehab following 4. Will monitor daily labs and chest x-ray. Electrolyte replacement per protocol. Will give 20 mg IVP lasix x 1 5. Pain control with current medication regimen. 6. Insulin management per internal medicine. Patient is not diabetic, preoperative hemaglobin A1c 6.2%. 7. Strict accurate intake and output 8. Smoking cessation counseling and education provided. Nicotine patch added by primary care 9. Continue IV direction of the 24 hours. Likely will discharge on oral antibiotics 10. Patient to shower today, then daily every day afterward 11. Discharge planning in progress. Anticipate discharge to home with home care in the next 24-48 hours 12. More recommendations to follow based on patient's clinical course
[2022-03-09 08:53] LABS: HCT 33.6 % (39.0-53.0); MCH 29.4 pg (25.0-35.0); MCHC 32.8 g/dL (31.0-37.0); MCV 89.5 fL (80.0-100.0); Platelet Count 272 k/uL (150-450); RBC 3.76 m/uL (4.30-5.90); RDW 13.1 % (11.5-15.5)
--- NOTE | 2022-03-09 09:11 | XR ---
EXAMINATION TYPE: XR chest 2V DATE OF EXAM: 03/09/2022 COMPARISON: 03/08/2022 TECHNIQUE: PA and lateral views submitted. HISTORY: Post CABG FINDINGS: Postsurgical changes with bilateral lower lobe infiltrate and small effusion. Biapical pleural thicke glenn. Heart size normal. Mild prominence of the interstitium. Limited inspiration. IMPRESSION: 1. Stable postsurgical changes with bilateral lower lobe infiltrate and pleural effusion. Mild venous congestion not excluded
[2022-03-09] MEDS ORDERED: FUROSEMIDE 10 MG/ML 2 ML VIAL IV STA (09:15)
[2022-03-09 09:39] LABS: African American GFR (CKD) >90 (>60 ml/min/1.73 sqM); Anion Gap 12 mmol/L; Blood Urea Nitrogen 13 mg/dL (9-20); Calcium 9.3 mg/dL (8.4-10.2); Carbon Dioxide 24 mmol/L (22-30); Chloride 104 mmol/L (98-107); Glucose 105 mg/dL (74-99); Non-African American GFR(CKD) >90 (>60 ml/min/1.73 sqM); Potassium 4.6 mmol/L (3.5-5.1); Sodium 140 mmol/L (137-145)
[2022-03-09] MEDS: ATORVASTATIN 40 MG TAB PO SCH (09:56)
[2022-03-09] MEDS: CLOPIDOGREL 75 MG TAB PO SCH (09:56)
[2022-03-09] MEDS: NICOTINE 14MG/24HR PATCH TRANSDERM SCH (09:56)
[2022-03-09] MEDS: VORTIOXETINE HYDROBROMIDE 10 MG TABLET PO SCH (09:57)
[2022-03-09] MEDS: ASPIRIN 325 MG TAB PO SCH (09:57)
[2022-03-09] MEDS: HEPARIN SODIUM,PORCINE/PF 5,000 UNIT/0.5 ML SYRINGE SQ SCH ×2 (09:57→17:27)
--- NOTE | 2022-03-09 11:45 | P.PN ---
Subjective Progress Note Date: 03/09/22 Principal diagnosis: Status post single-vessel bypass. Coronary artery disease, scheduled for CABG in a.m. This is a 46-year-old white male, 40-mort-dfkn smoking history, known history of dyslipidemia, strong family history of coronary artery disease, mother had UT in her 40s, patient presented to the ER with chest discomfort. Patient felt that the pain was left-sided, radiating to upper extremities, it was associated with slight shortness of breath and nausea/diaphoresis. Patient was seen by cardiology and felt to have non-ST elevation myocardial infarction. Patient un derwent cardiac catheterization, he was found to have significant extensive LAD disease, patient was advised by cardiology to have myocardial revascularization, and this is scheduled to be done next Saturday. We were asked to see the patient on consultation for pulmonary clearance. Patient doesn't smoke, and he denies any symptoms of cough wheezing or shortness of breath. Never been diagnosed wit h COPD, not on any inhalers. Patient has been quite active able to walk a mile easily and able to climb a few flights of stairs without any difficulty. Again he had no previous documented pulmonary bedside PFT is pending Reevaluated today on 03/06/22, patient is doing great, asymptomatic, in no di stress, scheduled for myocardial revascularization in a.m. Progress note dated 03/05/2022. Today is postop day #0, status post SAHU to LAD single-vessel off-pump bypass. The patient came back to the ICU, and room 264, and initially, he was on the volume assist control, rate 16, tidal volume 550, FiO2 100%, and PEEP of 10. Initial blood gases showed a pO2 of 165, pCO2 of 40, pH is 7.38. FiO2 was dropped down to 40%. Subsequent to that, the patient's saturations dropped down into the 80s and even high 70s. A repeat blood gas showed a pO2 of 53, pCO2 of 46, and pH is 7.33. The patient was increased back up to 100%. Currently, the patient's on IV nitroglycerin at 5 mcg/m, propofol at 50 mcg/kg/m, and Cleveprex at 2 mg an hour. I was called down to the intensive care unit, because of the low saturations. I assessed the patient at the bedside. The chest x-ray initially looked better than the subsequent chest x-ray which seemed to show some bilateral infiltrates. Could relate to pulmonary edema. In addition, I felt endotracheal tube she be pushed down 1 cm. Also, I decided to paralyzed the patient, giving him 10 mg a Nimbex IV push, and then a drip at 2 mcg/kg/m, with the idea that we would keep him paralyzed, overnight, and work on getting him extubated in the morning. Additional labs today include a white count of 8.9, hemoglobin 10.1, hematocrit 28.5, and a platelet count of 289,000. Sodium 140, potassium 3.8, chlorides 110, CO2 22, with a normal anion gap, BUN, and creatinine. All x-rays from today were reviewed. Progress note dated 03/06/2022. Today is postop day #1, status post SAHU to LAD single-vessel, off pump bypass. The patient is seen today in room 264. Initially, his saturations are quite low, we had the sedating and paralyzing him, to control him over the evening. Currently, he is on the volume assist control, rate of 16, tidal volume 550, FiO2 50%, and PEEP of 13. The PEEP will be dropped from 13 to 10. Blood gases show a PaO2 of 160, pCO2 49, and a pH is 7.34. Those blood gases were done on 60%. Currently, the patient is on lactated Ringer's at 50 mL an hour, insulin drip at 0.5 units an hour, and propofol at 50 mcg/kg/m. Earlier this morning, I called the ICU and had them turn off the Nimbex. The patient's cardiac output is 7.3 with an index of 3.2. White count 10.8, hemoglobin 11.5, hematocrit 32.6, with a platelet count of 198,000. Sodium 135, potassium 4.6, chlorides 103, CO2 24, BUN 8, creatinine 0.67. Chest x-ray shows changes of venous congestion, and small bilateral effusions, with some bibasilar atelectasis. Progress note dated 03/07/2022. Postop day #2, status post SAHU to LAD single-vessel off-pump bypass. The patient is again seen in room 264. He is currently on 7 L of oxygen by nasal cannula. He is getting lactated Ringer's at 30 mL an hour. He seems much more awake and alert. He is doing hourly incentive spirometer usage. White count 8.5, hemoglobin 10.3, hematocrit 30.1, and platelet count 157,000. Sodium, potassium, chloride, CO2, anion gap, BUN, and creatinine are all normal. C alcium is 8.3. Albumin is 3.3. Chest x-ray shows bibasilar atelectasis, and small lung volumes. Progress note dated 03/08/2022. Postop day #3, status post SAHU to LAD single-vessel, off pump bypass. The patient is again seen in room 264. He is down to 5 L of oxygen. No IV fluids. Today's postop day #3. His sputum is showing evidence of Enterobacter cloacae, and he was placed on Rocephin. Clinically he is doing much better. He is a candidate to move out of the ICU. White count 8.5, hemoglobin 10.6, hematocrit 30.9, and platelet count is normal. Sodium, potassium, chloride, CO2, anion gap, BUN, and creatinine are all normal. Albumin is 3.3. Chest x-ray shows some postoperative changes, bilateral effusions, and small lung volumes. No pneumothorax is seen. Progress note dated 03/09/2022. Postop day #4, status post SAHU to LAD single-vessel, off pump bypass. The patient is seen in room 353. He was in the intensive care unit yesterday. He's currently on 5 L of oxygen. He is not receiving any IV fluids. His sputum revealed evidence of Enterobacter cloaca, and he was placed on Rocephin. He is doing better. He continues to work on the incentive spirometer. White count 9, hemoglobin 11, hematocrit 33.6, platelet count 372,000. His electrolyte profile including sodium, potassium, chloride, CO2, anion gap, BUN, and creatinine, are all normal. Calcium was also normal. Chest x-ray shows improving pattern, but the patient does have bibasilar atelectasis, and small effusions. Objective - Vital Signs Vital signs: Vital Signs Temp 97.7 F 03/09/22 08:00 Pulse 80 03/09/22 11:40 Resp 19 03/09/22 08:00 BP 132/79 03/09/22 08:00 Pulse Ox 94 L 03/09/22 08:00 FiO2 50 03/06/22 12:30 Intake & Output 03/08/22 03/09/22 03/09/22 18:59 06:59 18:59 Intake Total 500 560 Output Total 400 Balance 100 560 Weight 107.2 kg Intake: Oral 500 560 Output: Urine 400 Other: Voiding Method Toilet Toilet # Voids 1 2 # Bowel Movements 1 ABP, PAP, CO, CI - Last Documented Arterial Blood Pressure 87/73 Pulmonary Artery Pressure 36/18 Cardiac Output 9.7 Cardiac Index 4.3 - Exam Awake and alert, extubated, on 5 L of oxygen. No respiratory distress, use of accessory muscles, or conversational dyspnea. HEENT examination is grossly unremarkable. Neck supple. Full range of motion. No adenopathy thyromegaly or neck vein distention. Cardiovascular examination reveals regular rhythm rate. S1-S2 normal. No S3 or S4. No discernible murmur noted. Heart rate 80 bpm. Lungs reveal scattered bilateral rhonchi. No wheezes or crackles. Breath sounds equal bilaterally. Saturations improved to 97 %. Abdomen soft bowel sounds are heard. No masses or tenderness. Extremities are intact. No cyanosis clubbing or edema. Skin is without rash or lesion. Neurologic examination is brief but nonfocal. - Labs CBC & Chem 7: 03/09/22 07:32 03/09/22 07:32 Labs: Abnormal Lab Results - Last 24 Hours (Table) 03/08/22 03/08/22 03/09/22 Range/Units 16:15 21:00 06:24 RBC (4.30-5.90) m/uL Hgb (13.0-17.5) gm/dL Hct (39.0-53.0) % Glucose (74-99) mg/dL POC Glucose (mg/dL) 137 H 132 H 111 H (70-110) mg/dL 03/09/22 03/09/22 Range/Units 07:32 07:32 RBC 3.76 L (4.30-5.90) m/uL Hgb 11.0 L (13.0-17.5) gm/dL Hct 33.6 L (39.0-53.0) % Glucose 105 H (74-99) mg/dL POC Glucose (mg/dL) (70-110) mg/dL Microbiology - Last 24 Hours (Table) 03/06/22 03:50 Gram Stain - Final Sputum Sputum Culture - Final Enterobacter cloacae Assessment and Plan Assessment: Postop day #4, status post single-vessel bypass, SAHU to LAD, off pump. Routine postoperative ventilator management, with successful extubation on March 06. Enterobacter cloacae tracheobronchitis. Postoperative hypoxemia, which may relate to fluid overload, and/or the effects of Cleveprex, on compensatory hypoxic vasoconstriction. Chronic nicotine dependence. Family history of premature coronary disease. Hyperlipidemia. Plan: Plan dated 03/05/2022. The patient came back to the intensive care unit, with an initial blood gas showing a pO2 of 165 on 10 of PEEP. The FiO2 was dropped down to 40%. The patient saturations drop, and the repeat PaO2 was only 53. The FiO2 was then increased back up to 100%. I was called down to the ICU, to evaluate the patient. X-rays were reviewed. The patient was a bit agitated and moving his head from [id number], and probably biting down on the endotracheal tube. I de cided to paralyze the patient with tendon Nimbex IV push, and immediately, the patient's saturations improved. He also placed endotracheal tube down 1 cm. The patient was placed on Nimbex drip at 2 mcg/kg/m. The patient will remain paralyzed overnight. Additional recommendations and suggestions are forthcoming. Labs, x-rays, and medications are reviewed. A repeat blood gas will be done in about an hour. Plan dated 03/06/2022. The patient's Nimbex was discontinued. The patient will be placed on dexmedetomidine. The PEEP levels decreased from 13, down to 10. We will eventually be decreased down to 8. Once the patient is fully awake, the patient will be placed on pressure support of 8, and CPAP of 5. Of course, we'll do a daily interruption of sedation, and a spontaneous breathing trial. The patient may be a candidate for weaning and extubation. Labs, x-rays, and medications are reviewed. Prognosis is certainly guarded. No additional recommendations are made at this time. Plan dated 03/07/2022. The patient is postop day #2. Labs, x-rays, and medications are all reviewed. The patient was successfully extubated yesterday after a daily interruption of sedation. The patient appears to be doing relatively well. He continues to deep breathe, cough, and clear secretions. We also recommend hourly use of incentive spirometer. No additional recommendations are made. We will continue to follow the patient make recommendations along the way. Plan dated 03/08/2022. The patient is started on Rocephin for the Enterobacter in the sputum. Labs, x- rays, medications are reviewed. The patient has been weaned on the 5 L. The patient will likely be transferred out of the intensive care unit today. Today's postop day #3. Additional recommendations and suggestions are forthcoming. We recommend hourly use of incentive spirometer. We will continue to follow the patient make recommendations along the way. Plan dated 03/09/2022. The patient continues to progress. He is currently on Rocephin for his Enterobacter infection in the sputum. The patient's on 5 L. He'll be assessed for home O2, tomorrow. The patient may be discharged possibly, by tomorrow. L abs, x-rays, and medications are reviewed. The patient remains on 5 L. We encourage the patient to deep breathe, cough, and clear secretions. The patient should continue using his incentive spirometer, every hour. Time with Patient: Less than 30
[2022-03-09 12:04] LABS: Glucose,Whole Blood 133 mg/dL (70-110)
[2022-03-09 13:12] VITALS: BMI 33.9
--- NOTE | 2022-03-09 13:38 | P.PN ---
Subjective Progress Note Date: 03/09/22 Patient is a 46-year-old male with a known history of anxiety, currently every day smoker presents to ER with complaints of chest pain. Patient says that today morning when he was getting ready to go to work he felt like heartburn- like sensation in the mid retrosternal region. He also had pain on bilateral arms associated with nausea and mild shortness of breath. He felt fuzzy and diaphoretic. Pain was getting worse which made him to come to ER. Patient states that he has been having fluttering of the heart on and off for the past couple of weeks. Chest pain did improve by the time he come to ER. Denied any complaints of fever or chills. No cough or sputum production. No leg swelling. Denied any recent illnesses or sick contacts. Family history of coronary artery disease in his mother at age 48 and patient does smoke daily. EKG showed sinus rhythm with ST-T wave abnormalities Chest x-ray showed no acute cardiopulmonary process Laboratory data showed WBC 8.0 hemoglobin 14.0 and platelets 283 D-dimer is 0.37 Sodium 138 potassium 4.7 GERD with grade bicarb is 17 BUN 14 and creatinine 0.74 A1c 6.2 LDL 102 TSH 1.43 Troponin 0.077 and 0.212. Cardiology was consulted and patient underwent catheterization today. This showed severe single-vessel coronary disease involving the proximal portion of the LAD. 03/03/2022 Patient is currently resting in the bed. Awake alert oriented 3. No further episodes of chest pain or shortness of breath. Patient did have some lightheadedness. Improved with Tylenol. Otherwise patient is Nitro Paste. Carotid Duplex Showed 50-70% stenosis in the left ICA. Echocardiogram showed ejection fraction 50-55%. Patient otherwise denied any nausea vomiting abdominal pain and diarrhea. No cough or sputum production. No other acute overnight issues. Patient is scheduled for coronary artery bypass graft on Saturday. 03/04/2022 Patient is resting in bed. Awake alert and oriented 3. No episodes of chest pain or shortness of breath overnight. No nausea vomiting or abdominal pain. No headache or dizziness or lightheadedness. No other acute overnight issues. Patient is scheduled for coronary revascularization tomorrow. Laboratory data reviewed. 03/05/2022 Patient is status post LAD/single-vessel coronary bypass graft. Postoperative day 0 Patient was transferred to MICU postsurgery. Currently intubated and on mechanical ventilator with assist control. Patient is also sedated and paralyzed. Laboratory data showed WBC 10.8 hemoglobin 11.8 and platelets 224 magnesium 1.9 Chest x-ray showed improved inspiration effort with streaky atelectasis in the left lung base postsurgical changes with lines and tubes in appropriate placement. No pneumothorax. 03/06/22. Patient seen and examined. Currently in ICU. Currently intubated and on mechanical ventilation. Vital signs stable 03/07/22. Patient seen and examined. Patient extubated yesterday. Currently sitting upright in the chair. Currently on 5 L of oxygen. Complaining of shortness of breath on exertion 03/08/22. Patient seen and examined. Currently sitting upright in the chair. Complaining productive cough. Complaining of shortness of breath. Currently on 4 L ofOxygen 03/09/22. Patient seen and examined. Case discussed with nursing staff. Vital signs stable. States his cough is improving. Shortness of breath Improving. Currently using I-S. REVIEW OF SYSTEMS: CONSTITUTIONAL: No fever, no malaise, no fatigue. CARDIOVASCULAR: Denies orthopnea, PND, no palpitations, no syncope. PULMONARY: Cough is improving, no hemoptysis. GASTROINTESTINAL: No diarrhea, no nausea, no vomiting, no abdominal pain. PHYSICAL EXAMINATION: GENERAL: Alert and oriented 3 HEENT: Pupils are round and equally reacting to light. CARDIOVASCULAR: S1 and S2 present. No murmurs, rubs, or gallops. PULMONARY: Chest is clear to auscultation, no wheezing or crackles. Sternotomy incision seen ABDOMEN: Soft, nontender, nondistended, normoactive bowel sounds. No palpable organomegaly. MUSCULOSKELETAL: No joint swelling or deformity. EXTREMITIES: No cyanosis, clubbing, or pedal edema. Assessment and plan Acute non-ST elevated MA cath Showed severe LAD proximal stenosis. Status post coronary revascularization single-vessel. Severe single-vessel CAD involving the proximal LAD. Hyperlipidemia Hypertension Ongoing nicotine addiction Family history of premature coronary artery disease DVT prophylaxis Plan: Continue postop management per cardiac surgery team Aggressive bronchopulmonary hygiene. Encourage use of I-S Sputum culture growing Enterobacter CloacE Continue Rocephin Continue current management. Pulmonology following Objective - Vital Signs Vital signs: Vital Signs Temp 97.7 F 03/09/22 08:00 Pulse 80 03/09/22 11:40 Resp 19 03/09/22 08:00 BP 132/79 03/09/22 08:00 Pulse Ox 94 L 03/09/22 09:16 FiO2 50 03/06/22 12:30 Intake & Output 03/08/22 03/09/22 03/09/22 18:59 06:59 18:59 Intake Total 500 610 Output Total 400 900 Balance 100 -290 Weight 107.2 kg Intake: Intake, IV Titration 50 Amount cefTRIAXone 2 gm In 50 Sodium Chloride 0.9% 50 ml @ 100 mls/hr IVPB Q12HR [facility] Rx#:[id number] Oral 500 560 Output: Urine 400 900 Other: Voiding Method Toilet Toilet Toilet # Voids 1 2 # Bowel Movements 1 1 ABP, PAP, CO, CI - Last Documented Arterial Blood Pressure 87/73 Pulmonary Artery Pressure 36/18 Cardiac Output 9.7 Cardiac Index 4.3 - Labs CBC & Chem 7: 03/09/22 07:32 03/09/22 07:32 Labs: Abnormal Lab Results - Last 24 Hours (Table) 03/08/22 03/08/22 03/09/22 Range/Units 16:15 21:00 06:24 RBC (4.30-5.90) m/uL Hgb (13.0-17.5) gm/dL Hct (39.0-53.0) % Glucose (74-99) mg/dL POC Glucose (mg/dL) 137 H 132 H 111 H (70-110) mg/dL 03/09/22 03/09/22 03/09/22 Range/Units 07:32 07:32 11:59 RBC 3.76 L (4.30-5.90) m/uL Hgb 11.0 L (13.0-17.5) gm/dL Hct 33.6 L (39.0-53.0) % Glucose 105 H (74-99) mg/dL POC Glucose (mg/dL) 133 H (70-110) mg/dL Microbiology - Last 24 Hours (Table) 03/06/22 03:50 Gram Stain - Final Sputum Sputum Culture - Final Enterobacter cloacae
[2022-03-09 16:27] LABS: Glucose,Whole Blood 116 mg/dL (70-110)
[2022-03-09] MEDS: METOPROLOL TARTRATE 25 MG TAB PO SCH ×2 (17:27→21:33)
[2022-03-09 21:31] LABS: Glucose,Whole Blood 113 mg/dL (70-110)
[2022-03-09] MEDS: SENNOSIDES-DOCUSATE SODIUM 1 EACH TAB PO SCH (21:33)
[2022-03-09] MEDS: ACETAMINOPHEN TAB 500 MG TAB PO PRN (21:33)
[2022-03-10] MEDS: HEPARIN SODIUM,PORCINE/PF 5,000 UNIT/0.5 ML SYRINGE SQ SCH ×2 (00:34→08:37)
[2022-03-10 04:20] VITALS: RESP 16
--- NOTE | 2022-03-10 04:42 | PN ---
PROGRESS NOTE SUBJECTIVE: Mr. De Los Santos is in sinus rhythm, doing better, off oxygen. O2 saturation is good. He is slightly tachycardic. OBJECTIVE: VITAL SIGNS: Stable. NECK: No JVD. HEART: S1, S2 heard normally. LUNGS: Reveal improved air entry. ABDOMEN: Exam unchanged. LOWER EXTREMITIES: Exam unchanged. PLAN: I will increase the metoprolol tartrate to 25 mg t.i.d. MMODL / IJN: [id number] /
[2022-03-10] MEDS: METOPROLOL TARTRATE 25 MG TAB PO SCH ×3 (05:03→08:37)
[2022-03-10] MEDS: SODIUM CHLORIDE 0.9% 1,000 ML in EMPTY BAG 1 BAG IV SCH (05:07)
[2022-03-10] MEDS: ASPIRIN 81 MG PO SCH (05:23)
[2022-03-10] MEDS: ATORVASTATIN 80 MG TAB PO SCH (05:23)
[2022-03-10] MEDS: MUPIROCIN 2% OINT 22 GM TUBE NASAL SCH (05:23)
[2022-03-10] MEDS: NITROGLYCERIN OINT 1 INCH/GM PACKET TOPICAL SCH (05:23)
[2022-03-10] MEDS: lisinopriL 5 MG TAB PO SCH (05:23)
[2022-03-10] MEDS: CISATRACURIUM 200 MG in SODIUM CHLORIDE 0.9% 180 ML IV SCH (05:24)
[2022-03-10] MEDS: NICOTINE 21MG/24HR PATCH TRANSDERM SCH (05:24)
--- NOTE | 2022-03-10 05:57 | P.PN ---
Subjective Progress Note Date: 03/10/22 Principal diagnosis: CAD and status post CABG This is a 46-year-old gentleman with hypertension and dyslipidemia who presented to the hospital with chest discomfort concerning for unstable angina. He underwent a heart catheterization by Dr. Stewart and attribute critical disease i nvolving the ostial LAD and severe disease involving the proximal LAD. There was also disease and underwent single-vessel bypass with SAHU to LAD. The patient was seen this morning. He is asymptomatic. He is doing overall well from a cardiovascular standpoint of view. He is on maximize medical treatment including dual antiplatelet therapy along with intermediate intensity statin which I would suggest to go to high intensity statin as soon as we can along with beta shahid which was increased yesterday. The patient potentially can be discharged home later on today Objective - Vital Signs Vital signs: Vital Signs Temp 97.6 F 03/10/22 04:20 Pulse 70 03/10/22 04:20 Resp 16 03/10/22 04:20 BP 124/80 03/10/22 04:20 Pulse Ox 95 03/10/22 04:20 FiO2 50 03/06/22 12:30 Intake & Output 03/09/22 03/09/22 03/10/22 06:59 18:59 06:59 Intake Total 1330 1670 Output Total 900 2400 Balance 430 -730 Weight 107.2 kg Intake: Intake, IV Titration 50 50 Amount cefTRIAXone 2 gm In 50 50 Sodium Chloride 0.9% 50 ml @ 100 mls/hr IVPB Q12HR [facility] Rx#:[id number] Oral 1280 1620 Output: Urine 900 2400 Other: Voiding Method Toilet Toilet Toilet # Voids 2 # Bowel Movements 1 ABP, PAP, CO, CI - Last Documented Arterial Blood Pressure 87/73 Pulmonary Artery Pressure 36/18 Cardiac Output 9.7 Cardiac Index 4.3 - Constitutional General appearance: Present: no acute distress - Respiratory Respiratory: bilateral: CTA - Cardiovascular Rhythm: regular Heart sounds: normal: S1, S2 - Labs CBC & Chem 7: 03/09/22 07:32 03/09/22 07:32 Labs: Abnormal Lab Results - Last 24 Hours (Table) 03/09/22 03/09/22 03/09/22 Range/Units 06:24 07:32 07:32 RBC 3.76 L (4.30-5.90) m/uL Hgb 11.0 L (13.0-17.5) gm/dL Hct 33.6 L (39.0-53.0) % Glucose 105 H (74-99) mg/dL POC Glucose (mg/dL) 111 H (70-110) mg/dL 03/09/22 03/09/22 03/09/22 Range/Units 11:59 16:23 21:30 RBC (4.30-5.90) m/uL Hgb (13.0-17.5) gm/dL Hct (39.0-53.0) % Glucose (74-99) mg/dL POC Glucose (mg/dL) 133 H 116 H 113 H (70-110) mg/dL Assessment and Plan Assessment: Assessment CAD and status post single-vessel bypass with SAHU to LAD Hypertension Dyslipidemia Plan Continue the current medical regimen Continue dual antiplatelet therapy Suggest increase the dose of statin to high intensity Follow-up with the patient
[2022-03-10 06:50] LABS: Glucose,Whole Blood 122 mg/dL (70-110)
[2022-03-10] MEDS: INSULIN ASPART (NovoLOG) 100 UNIT/ML VIAL SQ SCH (06:50)
[2022-03-10] MEDS: PANTOPRAZOLE 40 MG TABLET PO SCH (06:54)
--- NOTE | 2022-03-10 07:33 | XR ---
EXAMINATION TYPE: XR chest 2V DATE OF EXAM: 03/10/2022 COMPARISON: 03/09/2022 HISTORY: Postcardiac surgery TECHNIQUE: Frontal and lateral views of the chest are obtained. FINDINGS: Postsurgical CABG changes. Stable mild left lung base atelectasis and small effusion. Development of mild right lung infiltrate/ atelectasis. Normal heart size and pulmonary vasculature. No pneumothorax. IMPRESSION: Interval development of mild right lung infiltrate likely mild atelectasis. No change left lung base.
[2022-03-10] MEDS: IPRATROPIUM-ALBUTEROL 3 ML NEB INHALATION SCH ×2 (07:50→11:25)
[2022-03-10] MEDS: ACETYLCYSTEINE 800 MG/4 ML VIAL INHALATION SCH ×2 (07:50→11:25)
[2022-03-10] MEDS ORDERED: FUROSEMIDE 10 MG/ML 2 ML VIAL IV STA (07:54)
--- NOTE | 2022-03-10 08:13 | P.PN ---
Subjective Progress Note Date: 03/10/22 Principal diagnosis: Coronary artery disease, non-ST elevated myocardial infarction this admission. Previous medical history of hypertension, hyperlipidemia, chronic ongoing tobac co dependence, depression, frequent diarrhea with occasional bloody stools, and family history of premature coronary artery disease with his mother having a myocardial infarction at age 48. Left internal carotid artery stenosis 50-70% POD #5 off-pump coronary artery bypass grafting 1 vessel, left internal mammary artery to left anterior descending coronary artery, lysis of adhesions, graft flow measurements using the Medistim system, and intraoperative transesophageal echocardiogram completed by anesthesia. Postoperative acute blood loss anemia, expected due to hemodilution. Prolonged mechanical ventilation secondary to hypoxemia, with possible secondary effects from Cleviprex drip Sputum culture positive for Enterobacter cloacae, WBC normal, remains afebrile The patient was seen and examined this morning sitting up in a recliner on the cardiac stepdown unit in no acute distress. States pain is controlled on current medication regimen, denies shortness of breath. States he continues to feel better daily, wants to go home today. Remains in sinus rhythm and hemodynamically stable. Currently on room air, able to achieve 2500 mL on his incentive spirometry. He been ambulatory without difficulty, received first postoperative shower yesterday. Remains on IV Rocephin, will transition to oral antibiotic for discharge. No other new concerns. Objective - Vital Signs Vital signs: Vital Signs Temp 97.6 F 03/10/22 04:20 Pulse 83 03/10/22 07:50 Resp 16 03/10/22 04:20 BP 124/80 03/10/22 04:20 Pulse Ox 96 03/10/22 07:50 FiO2 50 03/06/22 12:30 Intake & Output 03/09/22 03/10/22 03/10/22 18:59 06:59 18:59 Intake Total 1330 1670 Output Total 900 2400 Balance 430 -730 Weight 107.2 kg Intake: Intake, IV Titration 50 50 Amount cefTRIAXone 2 gm In 50 50 Sodium Chloride 0.9% 50 ml @ 100 mls/hr IVPB Q12HR [facility] Rx#:[id number] Oral 1280 1620 Output: Urine 900 2400 Other: Voiding Method Toilet Toilet # Bowel Movements 1 ABP, PAP, CO, CI - Last Documented Arterial Blood Pressure 87/73 Pulmonary Artery Pressure 36/18 Cardiac Output 9.7 Cardiac Index 4.3 - Exam CONSTITUTIONAL: Appears comfortable, cooperative, no acute distress RESPIRATORY: Lungs sounds diminished bilaterally. Respirations even, nonlabored. Currently on room air with oxygen saturation 95%. Able to achieve 2500 mL on incentive spirometry. Strong productive cough. CARDIOVASCULAR: S1, S2 present. Regular rate and rhythm, sinus rhythm on t elemetry. Sternum stable. Palpable peripheral pulses bilaterally. No edema present. No calf pain or tenderness noted. Heart hugger in place with patient demonstrating appropriate use. Antiembolism stockings, SCDs present. GASTROINTESTINAL: Abdomen soft, nontender, nondistended. Active bowel sounds present 4 quadrants. Tolerating diet. Positive bowel movement GENITOURINARY: Continues to void, 3300 mL in the last 24 hours INTEGUMENTARY: Skin is warm and dry with evidence of good perfusion. Anterior chest incision well approximated NEUROLOGIC: Cranial nerves II through XII intact MUSKULOSKELETAL: Able to move all extremities, strength equal bilaterally, gait normal PSYCHIATRIC: Alert and oriented to person place and time, appropriate affect, intact judgment and insight - Allied health notes Allied health notes reviewed: nursing - Labs CBC & Chem 7: 03/09/22 07:32 03/09/22 07:32 Labs: Abnormal Lab Results - Last 24 Hours (Table) 03/09/22 03/09/22 03/09/22 Range/Units 07:32 07:32 11:59 RBC 3.76 L (4.30-5.90) m/uL Hgb 11.0 L (13.0-17.5) gm/dL Hct 33.6 L (39.0-53.0) % Glucose 105 H (74-99) mg/dL POC Glucose (mg/dL) 133 H (70-110) mg/dL 03/09/22 03/09/22 03/10/22 Range/Units 16:23 21:30 06:49 RBC (4.30-5.90) m/uL Hgb (13.0-17.5) gm/dL Hct (39.0-53.0) % Glucose (74-99) mg/dL POC Glucose (mg/dL) 116 H 113 H 122 H (70-110) mg/dL - Imaging and Cardiology Chest x-ray: image reviewed Assessment and Plan Assessment: 1. Coronary artery disease, non-ST elevated myocardial infarction this admission, status post single-vessel CABG 2. History of hypertension 3. Hyperlipidemia, treated, cholesterol 168, LDL 107 4. Chronic ongoing tobacco dependence, preoperative FEV1 110% of predicted 5. Depression 6. History of frequent diarrhea with occasional bloody stools 7. Family history of premature coronary artery disease with his mother having a myocardial infarction at age 48 8. Left internal carotid artery stenosis 50-70% 9. Postoperative acute blood loss anemia, expected due to hemodilution. 10. Prolonged mechanical ventilation secondary to hypoxemia, with possible secondary effects from Cleviprex drip 11. Sputum culture positive for Enterobacter cloacae Plan: 1. Continue to maximize medical therapy with full strength aspirin, statin, Plavix and beta shahid 2. Encourage incentive spirometry 10 times every hour while awake. Br onchodilators per pulmonology 3. Increase activity, ambulate as tolerated. PT/OT/cardiac rehab following 4. Will monitor daily labs and chest x-ray. Electrolyte replacement per protocol. Will give 20 mg IVP lasix x 1 5. Pain control with current medication regimen. 6. Insulin management per internal medicine. Patient is not diabetic, preoperative hemaglobin A1c 6.2%. 7. Strict accurate intake and output 8. Smoking cessation counseling and education provided. Nicotine patch added by primary care 9. Will discharge on oral antibiotics 10. Patient to shower daily 11. Discharge planning in progress. Anticipate discharge to home with home care this afternoon
[2022-03-10 08:30] LABS: Basophils % (A) 1 %; Eosinophils # (A) 0.3 k/uL (0-0.7); Eosinophils % (A) 4 %; HCT 33.9 % (39.0-53.0); HGB 11.4 gm/dL (13.0-17.5); Lymphocytes # (A) 1.6 k/uL (1.0-4.8); Lymphocytes % (A) 22 %; MCH 29.5 pg (25.0-35.0); MCHC 33.6 g/dL (31.0-37.0); MCV 87.7 fL (80.0-100.0); Mean Platelet Volume 7.8; Monocytes # (A) 0.7 k/uL (0-1.0); Monocytes % (A) 9 %; Neutrophils # (A) 4.5 k/uL (1.3-7.7); Neutrophils % (A) 61 %; Platelet Count 299 k/uL (150-450); RBC 3.87 m/uL (4.30-5.90); RDW 13.4 % (11.5-15.5); WBC 7.3 k/uL (3.8-10.6)
[2022-03-10] MEDS: ASPIRIN 325 MG TAB PO SCH (08:37)
[2022-03-10] MEDS: ATORVASTATIN 40 MG TAB PO SCH (08:37)
[2022-03-10] MEDS: VORTIOXETINE HYDROBROMIDE 10 MG TABLET PO SCH (08:37)
[2022-03-10] MEDS: CLOPIDOGREL 75 MG TAB PO SCH (08:37)
[2022-03-10] MEDS: NICOTINE 14MG/24HR PATCH TRANSDERM SCH (08:37)
[2022-03-10 08:47] LABS: ALT 34 U/L (4-49); AST 33 U/L (17-59); African American GFR (CKD) >90 (>60 ml/min/1.73 sqM); Albumin 3.9 g/dL (3.5-5.0); Alkaline Phosphatase 58 U/L (38-126); Anion Gap 10 mmol/L; Blood Urea Nitrogen 15 mg/dL (9-20); Calcium 9.1 mg/dL (8.4-10.2); Carbon Dioxide 24 mmol/L (22-30); Chloride 105 mmol/L (98-107); Glucose 107 mg/dL (74-99); Non-African American GFR(CKD) >90 (>60 ml/min/1.73 sqM); Potassium 4.8 mmol/L (3.5-5.1); Sodium 139 mmol/L (137-145); Total Bilirubin 0.6 mg/dL (0.2-1.3); Total Protein 6.3 g/dL (6.3-8.2)
--- NOTE | 2022-03-10 10:24 | P.DS ---
Providers Date of admission: 03/02/22 10:10 Expected date of discharge: 03/10/22 Attending physician: Angel Colby Consults: 03/02/22 10:10 Consult Physician Urgent Consulting Provider: Dustin Candelaria Consult Reason/Comments: NSTEMI Do you want consulting provider notified?: Yes 03/02/22 12:37 Consult Physician Urgent Consulting Provider: Angel Colby Consult Reason/Comments: CABG evaluation Do you want consulting provider notified?: Already Contacted 03/02/22 14:17 Consult Physician Routine Consulting Provider: Diya Vargas Consult Reason/Comments: Pulmonary management, preop CABG Do you want consulting provider notified?: Yes 03/03/22 08:00 Consult to Anesthesia Routine Consulting Provider: Anesthesia,Services Consult Reason/Comments: Cardiac Surgery Pre-Op 03/05/22 11:15 Consult Physician Routine Consulting Provider: Pedro Ascencio Consult Reason/Comments: medical management Do you want consulting provider notified?: Already Contacted 03/05/22 12:40 Consult Physician Routine Consulting Provider: Pedro Ascencio Consult Reason/Comments: medical management Do you want consulting provider notified?: Already Contacted Primary care physician: Karissa Whitten [facility] Course: FINAL DIAGNOSIS: 1. Coronary artery disease, non-STEMI this admission 2. History of hypertension 3. Hyperlipidemia, treated, cholesterol 168, LDL 107 4. Chronic ongoing tobacco dependence, preoperative FEV1 110% of predicted 5. Depression 6. History of frequent diarrhea with occasional bloody stools 7. Family history of premature coronary artery disease 8. Left internal carotid artery stenosis 50-70% 9. Postoperative acute blood loss anemia, expected 10. Prolonged mechanical ventilation secondary to hypoxemia, possible secondary effects from Cleviprex 11. Sputum culture positive for Enterobacter cloacae PRINCIPAL PROCEDURE: 1. Off-pump coronary artery bypass grafting 1 vessel, left internal mammary artery to the left anterior descending artery 2. Lysis of adhesions 3. Graft flow measurements using the Medistim system 4. Intraoperative transesophageal echocardiogram completed by anesthesia HISTORY OF PRESENT ILLNESS: This is a 46-year-old active gentleman who follows on an outpatient basis with Dr. Whitten for primary care. He presented to the emergency room at [facility] with complaints of chest pain associated with shortness of breath and nausea. 12-lead EKG demonstrated sinus rhythm with nonspecific STT wave abnormalities. Troponins were elevated and the patient was ruled in for non-STEMI. He underwent heart catheterization demonstrating 90% stenosis to the proximal LAD. Workup included a transthoracic echocardiogram which demonstrated normal left ventricular systolic function with EF 50-55%, no regional wall motion abnormalities, mild mitral and tricuspid regurgitation. Consultation was placed to Dr. Colby from cardiothoracic surgery. He was recommended to undergo coronary artery bypass surgery. The usual perioperative course was discussed in detail with the patient and his family, all risks and benefits were explained, all questions were answered, and consent was obtained to proceed with surgery. The patient was kept inpatient due to the nature of his disease process. HOSPITAL COURSE: The patient was brought to the preoperative area 03/05/2022, prepared in the usual fashion, and subsequently taken to the operating room where Dr. Colby performed single vessel off-pump CABG. Upon completion of surgery the patient was transferred to the cardiovascular intensive care unit where he was recovered and monitored hemodynamically. He did experience prolonged mechanical ventilation due to hypoxemia, thought to be secondary effects of shunting from Cleviprex. He was eventually extubated, all lines, tubes, and drips were discontinued when appropriate, and he was transferred to 3 S. cardiac stepdown unit for further monitoring and rehabilitation. His sputum culture while intubated did grow Enterobacter species and the patient was placed on antibiotics. His oxygen was titrated down, he continued to work with physical and occupational therapy, he was tolerating oral diet, his pain was controlled, and he was ready to be discharged to home with [facility] on postoperative day #5. He received written and verbal instruction regarding his medications, activity restrictions, signs and symptoms requiring physician notification, and follow-up appointments. Patient Condition at Discharge: Stable Plan - Discharge Summary Discharge Rx Participant: No New Discharge Prescriptions: New Nicotine 14Mg/24Hr Patch [Habitrol] 1 patch TRANSDERM DAILY #14 patch Furosemide [Lasix] 20 mg PO DAILY #5 tab Levofloxacin [Levaquin] 750 mg PO DAILY 7 Days #1 tab Metoprolol Tartrate [Lopressor] 25 mg PO TID #90 tab Clopidogrel [Plavix] 75 mg PO DAILY #30 tab Pantoprazole [Protonix] 40 mg PO AC-BRKFST #30 tab Sennosides-Docusate Sodium [Senokot-S] 2 each PO HS PRN tab PRN Reason: Constipation Acetaminophen Tab [Tylenol] 1,000 mg PO Q6HR PRN tab PRN Reason: Fever And/ Or Pain Aspirin 325 mg PO DAILY #30 tab Continue Rosuvastatin [Crestor] 20 mg PO DAILY Vortioxetine Hydrobromide [Trintellix] 10 mg PO DAILY Discharge Medication List Rosuvastatin [Crestor] 20 mg PO DAILY 03/02/22 [History] Vortioxetine Hydrobromide [Trintellix] 10 mg PO DAILY 03/02/22 [History] Acetaminophen Tab [Tylenol] 1,000 mg PO Q6HR PRN tab 03/10/22 [Rx] Aspirin 325 mg PO DAILY #30 tab 03/10/22 [Rx] Clopidogrel [Plavix] 75 mg PO DAILY #30 tab 03/10/22 [Rx] Furosemide [Lasix] 20 mg PO DAILY #5 tab 03/10/22 [Rx] Levofloxacin [Levaquin] 750 mg PO DAILY 7 Days #1 tab 03/10/22 [Rx] Metoprolol Tartrate [Lopressor] 25 mg PO TID #90 tab 03/10/22 [Rx] Nicotine 14Mg/24Hr Patch [Habitrol] 1 patch TRANSDERM DAILY #14 patch 03/10/22 [Rx] Pantoprazole [Protonix] 40 mg PO AC-BRKFST #30 tab 03/10/22 [Rx] Sennosides-Docusate Sodium [Senokot-S] 2 each PO HS PRN tab 03/10/22 [Rx] Follow up Appointment(s)/Referral(s): Diya Vagras MD [STAFF PHYSICIAN] - 04/03/22 1:00 pm [facility] ,Cardiac [NON-STAFF] - 4 Weeks (You will receive a phone call in approximately 4-6 weeks for evaluation for cardiac rehab) Laurie Young MD [STAFF PHYSICIAN] - 6 Weeks (Call to set up colonoscopy) Kj Kaba NPC [Nurse Practitioner] - 03/16/22 1:00 pm (You will be seen in the surgeon's office behind the hospital in [facility], [address] Office phone number is ) Angel Colby MD [STAFF PHYSICIAN] - 04/05/22 2:30 pm Karissa Whitten MD [Primary Care Provider] - 2 Weeks (Office is closed Saturday', will call Saturday to get appointment ) Jose Young MD [STAFF PHYSICIAN] - 03/27/22 2:15 pm [facility] Vis[facility] Nurse, [NON-STAFF] - 1-2 Days (To visit/open case day after discharge, then 2-3 times per week for 4 weeks) Ambulatory/Diagnostic Orders: Complete Blood Count w/diff [LAB.AMB] Time Frame: 3 Days, Location: None Selected Comprehensive Metabolic Panel [LAB.AMB] Time Frame: 3 Days, Location: None Selected Activity/Diet/Wound Care/Special Instructions: DISCHARGE INSTRUCTIONS: 1. No driving for 4 weeks, or until physician gives their ok. 2. The patient should sleep in their own bed, no medical bed needed. 3. Stairs are not an issue. If the bedroom is upstairs, it is advised that the patient go up at night and down in the morning for the first week. Go slowly, using handrail and take 1 step at a time. 4. RAMYA hose are to be worn for 30 days post surgery or until physician discon tinues. 5. Heart hugger is to be worn 100% of the time until physician discontinues.(except when showering) 6. No lifting, pushing, or pulling more than 10 pounds for 12 weeks. The physician will advise of any restriction changes. 7. The patient is expected to continue the prescribed walking program. 8. Continue pain control per as needed orders. 9. Continue with incentive spirometry and splinting/heart hugger until otherwise directed by the physician. 10. Must shower daily using liquid antibacterial soap 11. Routine sternal incision care. No powders, lotions, ointments on incisions. No dressings are necessary on incisions unless they are draining. Dermabond tape is to remain on sternal incision until surgeon follow-up. 12. Please call surgeon/DECONTAMINATOR for temp greater than 101 F or purulent drainage from incisions. 13. You should weigh yourself daily, record and bring log with you to follow up appointments. 14. All prescriptions given by surgeon for 30 days. Refills need to be filled through data entry manager/primary care physician. 15. A Red armband has been placed on the patient. It should be worn for 30 days post discharge from surgery and will be removed by the cardiac surgeons. If an ER visit is necessary, please make sure the number on the Red armband is called before going to ER. 16. You have been referred to and are expected to begin Cardiac Rehab in approximately 4-6 weeks. HOME HEALTH SERVICES TO PROVIDE: RN SKILLED HOME CARE SERVICES FOR POST-OP SURGICAL PATIENTS WITH THE FOLLOWING: Coronary Artery Bypass Surgery (CABG), Mitral Valve Replacement/Repair ( MVR), Aortic Valve Replacement/Repair (AVR) RN TO CONTINUE EDUCATION FROM ``ROAD TO A HEALTH HEART PATIENT EDUCATION MANUAL (GIVEN TO PATIENT IN THE HOSPITAL) MEDICATION RECONCILIATION WITH EDUCATION NEEDED ON FIRST HOME VISIT EMPHASIZE IMPORTANCE OF WEARING BREAST SUPPORT/HEART HUGGER ENCOURAGE USE OF INCENTIVE SPIROMETER 10 X EVERY HOUR WHILE AWAKE ENCOURAGE UTILIZATION OF LOWER EXTREMITY COMPRESSION STOCKINGS/RAMYA HOSE and ELEVATE LEGS ABOVE LEVEL OF HEART WHILE AT REST. ENCOURAGE AMBULATION 3-5x/day INCREASING TOLERATES, WHILE AVOIDING EXTREMES IN TEMPERATURE FREQUENCY: RN TO OPEN THE PATIENT WITHIN 24 HOURS OF DISCHARGE FROM THE HOSPITAL WITH TELEHEALTH INSTALLED AT [facility] [place], RN TO VISIT 2-3 X A WEEK FOR 4 WEEKS ESTABLISHED BY PATIENT NEEDS. LABORATORY: CBC, CMP TO BE DRAWN ON THE THIRD DAY HOME, (RAN STAT) FAX RESULTS TO [phone]. TELEHEALTH PARAMETERS: WEIGHT: NOTIFY MD OF WEIGHT GAIN OF 2 LBS IN 24 HOURS OR 5 LBS IN ONE WEEK HR: NOTIFY MD OF HR <55 BPM OR HR>100 BPM BP: NOTIFY MD IF BP <90/55 OR BP>140/100 O2 SAT: NOTIFY MD IF PO2<93% ON ROOM AIR SEND TELEHEALTH REPORT TO SPOOLING SUPERVISOR AND CARDIOVASCULAR SURGEON THE FIRST WEEK OF CARE AND THEN BI-WEEKLY. PLEASE ADDITIONALLY COMMUNICATE ANY ABNORMALS AND NEW FINDINGS TO THE SURGEONS OFFICE. Discharge Disposition: HOME WITH HOME HEALTH SERVICES
--- NOTE | 2022-03-10 11:17 | P.PN ---
Subjective Progress Note Date: 03/10/22 Principal diagnosis: Status post single-vessel bypass. Coronary artery disease, scheduled for CABG in a.m. This is a 46-year-old white male, [id number] smoking history, known history of dyslipidemia, strong family history of coronary artery disease, mother had [facility] in her 40s, patient presented to the ER with chest discomfort. Patient felt that the pain was left-sided, radiating to upper extremities, it was associated with slight shortness of breath and nausea/diaphoresis. Patient was seen by cardiology and felt to have non-ST elevation myocardial infarction. Patient un derwent cardiac catheterization, he was found to have significant extensive LAD disease, patient was advised by cardiology to have myocardial revascularization, and this is scheduled to be done next Saturday. We were asked to see the patient on consultation for pulmonary clearance. Patient doesn't smoke, and he denies any symptoms of cough wheezing or shortness of breath. Never been diagnosed wit h COPD, not on any inhalers. Patient has been quite active able to walk a mile easily and able to climb a few flights of stairs without any difficulty. Again he had no previous documented pulmonary bedside PFT is pending Reevaluated today on 03/06/22, patient is doing great, asymptomatic, in no di stress, scheduled for myocardial revascularization in a.m. Progress note dated 03/05/2022. Today is postop day #0, status post SAHU to LAD single-vessel off-pump bypass. The patient came back to the ICU, and room 264, and initially, he was on the volume assist control, rate 16, tidal volume 550, FiO2 100%, and PEEP of 10. Initial blood gases showed a pO2 of 165, pCO2 of 40, pH is 7.38. FiO2 was dropped down to 40%. Subsequent to that, the patient's saturations dropped down into the 80s and even high 70s. A repeat blood gas showed a pO2 of 53, pCO2 of 46, and pH is 7.33. The patient was increased back up to 100%. Currently, the patient's on IV nitroglycerin at 5 mcg/m, propofol at 50 mcg/kg/m, and Cleveprex at 2 mg an hour. I was called down to the intensive care unit, because of the low saturations. I assessed the patient at the bedside. The chest x-ray initially looked better than the subsequent chest x-ray which seemed to show some bilateral infiltrates. Could relate to pulmonary edema. In addition, I felt endotracheal tube she be pushed down 1 cm. Also, I decided to paralyzed the patient, giving him 10 mg a Nimbex IV push, and then a drip at 2 mcg/kg/m, with the idea that we would keep him paralyzed, overnight, and work on getting him extubated in the morning. Additional labs today include a white count of 8.9, hemoglobin 10.1, hematocrit 28.5, and a platelet count of 289,000. Sodium 140, potassium 3.8, chlorides 110, CO2 22, with a normal anion gap, BUN, and creatinine. All x-rays from today were reviewed. Progress note dated 03/06/2022. Today is postop day #1, status post SAHU to LAD single-vessel, off pump bypass. The patient is seen today in room 264. Initially, his saturations are quite low, we had the sedating and paralyzing him, to control him over the evening. Currently, he is on the volume assist control, rate of 16, tidal volume 550, FiO2 50%, and PEEP of 13. The PEEP will be dropped from 13 to 10. Blood gases show a PaO2 of 160, pCO2 49, and a pH is 7.34. Those blood gases were done on 60%. Currently, the patient is on lactated Ringer's at 50 mL an hour, insulin drip at 0.5 units an hour, and propofol at 50 mcg/kg/m. Earlier this morning, I called the ICU and had them turn off the Nimbex. The patient's cardiac output is 7.3 with an index of 3.2. White count 10.8, hemoglobin 11.5, hematocrit 32.6, with a platelet count of 198,000. Sodium 135, potassium 4.6, chlorides 103, CO2 24, BUN 8, creatinine 0.67. Chest x-ray shows changes of venous congestion, and small bilateral effusions, with some bibasilar atelectasis. Progress note dated 03/07/2022. Postop day #2, status post SAHU to LAD single-vessel off-pump bypass. The patient is again seen in room 264. He is currently on 7 L of oxygen by nasal cannula. He is getting lactated Ringer's at 30 mL an hour. He seems much more awake and alert. He is doing hourly incentive spirometer usage. White count 8.5, hemoglobin 10.3, hematocrit 30.1, and platelet count 157,000. Sodium, potassium, chloride, CO2, anion gap, BUN, and creatinine are all normal. C alcium is 8.3. Albumin is 3.3. Chest x-ray shows bibasilar atelectasis, and small lung volumes. Progress note dated 03/08/2022. Postop day #3, status post SAHU to LAD single-vessel, off pump bypass. The patient is again seen in room 264. He is down to 5 L of oxygen. No IV fluids. Today's postop day #3. His sputum is showing evidence of Enterobacter cloacae, and he was placed on Rocephin. Clinically he is doing much better. He is a candidate to move out of the ICU. White count 8.5, hemoglobin 10.6, hematocrit 30.9, and platelet count is normal. Sodium, potassium, chloride, CO2, anion gap, BUN, and creatinine are all normal. Albumin is 3.3. Chest x-ray shows some postoperative changes, bilateral effusions, and small lung volumes. No pneumothorax is seen. Progress note dated 03/09/2022. Postop day #4, status post SAHU to LAD single-vessel, off pump bypass. The patient is seen in room 353. He was in the intensive care unit yesterday. He's currently on 5 L of oxygen. He is not receiving any IV fluids. His sputum revealed evidence of Enterobacter cloaca, and he was placed on Rocephin. He is doing better. He continues to work on the incentive spirometer. White count 9, hemoglobin 11, hematocrit 33.6, platelet count 372,000. His electrolyte profile including sodium, potassium, chloride, CO2, anion gap, BUN, and creatinine, are all normal. Calcium was also normal. Chest x-ray shows improving pattern, but the patient does have bibasilar atelectasis, and small effusions. Progress note dated 03/10/2022. Postop day #5, status post ASHU to LAD single-vessel off-pump bypass. The patient is again seen in room 353. The patient's doing much better. Currently he is on room air. The patient is not requiring any supplemental fluids. The patient may be discharged home today. The patient's sputum revealed evidence of Enterobacter cloacae. He was placed on Rocephin and likely will be discharged home on Levaquin. White count 7.3, hemoglobin 11.4, hematocrit 33.9, with a normal platelet count. The patient's electrolyte profile is completely normal. Glucose 107. Chest x-ray shows a mid right lung infiltrate and some atelectasis. Objective - Vital Signs Vital signs: Vital Signs Temp 97.6 F 03/10/22 04:20 Pulse 87 03/10/22 08:05 Resp 16 03/10/22 04:20 BP 124/80 03/10/22 04:20 Pulse Ox 96 03/10/22 07:50 FiO2 50 03/06/22 12:30 Intake & Output 03/09/22 03/10/22 03/10/22 18:59 06:59 18:59 Intake Total 1330 1670 Output Total 900 2400 Balance 430 -730 Weight 107.2 kg Intake: Intake, IV Titration 50 50 Amount cefTRIAXone 2 gm In 50 50 Sodium Chloride 0.9% 50 ml @ 100 mls/hr IVPB Q12HR RICHA Rx#:[id number] Oral 1280 1620 Output: Urine 900 2400 Other: Voiding Method Toilet Toilet # Bowel Movements 1 ABP, PAP, CO, CI - Last Documented Arterial Blood Pressure 87/73 Pulmonary Artery Pressure 36/18 Cardiac Output 9.7 Cardiac Index 4.3 - Exam Awake and alert, extubated, on room air. Saturations are 96%. No respiratory distress, use of accessory muscles, or conversational dyspnea. HEENT examination is grossly unremarkable. Neck supple. Full range of motion. No adenopathy thyromegaly or neck vein distention. Cardiovascular examination reveals regular rhythm rate. S1-S2 normal. No S3 or S4. No discernible murmur noted. Heart rate 87 bpm. Lungs reveal scattered bilateral rhonchi. No wheezes or crackles. Breath sounds equal bilaterally. Saturations are 96 %. Abdomen soft bowel sounds are heard. No masses or tenderness. Extremities are intact. No cyanosis clubbing or edema. Skin is without rash or lesion. Neurologic examination is brief but nonfocal. - Labs CBC & Chem 7: 03/10/22 07:58 03/10/22 07:58 Labs: Abnormal Lab Results - Last 24 Hours (Table) 03/09/22 03/09/22 03/09/22 Range/Units 11:59 16:23 21:30 RBC (4.30-5.90) m/uL Hgb (13.0-17.5) gm/dL Hct (39.0-53.0) % Glucose (74-99) mg/dL POC Glucose (mg/dL) 133 H 116 H 113 H (70-110) mg/dL 03/10/22 03/10/22 03/10/22 Range/Units 06:49 07:58 07:58 RBC 3.87 L (4.30-5.90) m/uL Hgb 11.4 L (13.0-17.5) gm/dL Hct 33.9 L (39.0-53.0) % Glucose 107 H (74-99) mg/dL POC Glucose (mg/dL) 122 H (70-110) mg/dL Assessment and Plan Assessment: Postop day #5, status post single-vessel bypass, SAHU to LAD, off pump. Routine postoperative ventilator management, with successful extubation on March 06. Enterobacter cloacae tracheobronchitis. Postoperative hypoxemia, which may relate to fluid overload, and/or the effects of Cleveprex, on compensatory hypoxic vasoconstriction. Chronic nicotine dependence. Family history of premature coronary disease. Hyperlipidemia. Plan: Plan dated 03/05/2022. The patient came back to the intensive care unit, with an initial blood gas showing a pO2 of 165 on 10 of PEEP. The FiO2 was dropped down to 40%. The pat ient saturations drop, and the repeat PaO2 was only 53. The FiO2 was then increased back up to 100%. I was called down to the ICU, to evaluate the patient. X-rays were reviewed. The patient was a bit agitated and moving his head from [id number], and probably biting down on the endotracheal tube. I decided to paralyze the patient with tendon Nimbex IV push, and immediately, the patient's saturations improved. He also placed endotracheal tube down 1 cm. The patient was placed on Nimbex drip at 2 mcg/kg/m. The patient will remain paralyzed overnight. Additional recommendations and suggestions are forthcoming. Labs, x-rays, and medications are reviewed. A repeat blood gas will be done in about an hour. Plan dated 03/06/2022. The patient's Nimbex was discontinued. The patient will be placed on dexmedetomidine. The PEEP levels decreased from 13, down to 10. We will eventually be decreased down to 8. Once the patient is fully awake, the patient will be placed on pressure support of 8, and CPAP of 5. Of course, we'll do a daily interruption of sedation, and a spontaneous breathing trial. The patient may be a candidate for weaning and extubation. Labs, x-rays, and medications are reviewed. Prognosis is certainly guarded. No additional recommendations are made at this time. Plan dated 03/07/2022. The patient is postop day #2. Labs, x-rays, and medications are all reviewed. The patient was successfully extubated yesterday after a daily interruption of sedation. The patient appears to be doing relatively well. He continues to deep breathe, cough, and clear secretions. We also recommend hourly use of incentive spirometer. No additional recommendations are made. We will continue to follow the patient make recommendations along the way. Plan dated 03/08/2022. The patient is started on Rocephin for the Enterobacter in the sputum. Labs, x- rays, medications are reviewed. The patient has been weaned on the 5 L. The patient will likely be transferred out of the intensive care unit today. Today's postop day #3. Additional recommendations and suggestions are forthcoming. We recommend hourly use of incentive spirometer. We will continue to follow the patient make recommendations along the way. Plan dated 03/09/2022. The patient continues to progress. He is currently on Rocephin for his Enterobacter infection in the sputum. The patient's on 5 L. He'll be assessed for home O2, tomorrow. The patient may be discharged possibly, by tomorrow. Labs, x-rays, and medications are reviewed. The patient remains on 5 L. We encourage the patient to deep breathe, cough, and clear secretions. The patient should continue using his incentive spirometer, every hour. Plan dated 03/10/2022. The patient continues to improve. Room air saturations are excellent. The patient will be discharged home on antibiotic. Labs, x-rays, and medications are reviewed. The patient is not requiring any IV fluids. We encourage him to deep breathe, cough, and clear secretions, and continue to use the incentive spirometer, hourly. The patient will follow-up in our office. A chest x-ray will be done. The patient will likely be discharged home today. Time with Patient: Less than 30
[2022-03-10 11:47] VITALS: BP 140/81; PULSE 85; TEMP 98.7
== END 2022-03-10 11:14 | disposition home health service (06) | DRG 234 ==
LOC: EC 08:08 → 3SCARD 10:10 → 2SICU 03-05 06:27 → 3SCARD 03-08 13:15
PROVIDERS: ADMIT Surgery; ATTEND Surgery
PROC: 4A023N7 Measurement of Cardiac Sampling and Pressure, Left Heart, Percutaneous Approach (ICD-10-PCS; 2022-03-02)
PROC: B2111ZZ Fluoroscopy of Multiple Coronary Arteries using Low Osmolar Contrast (ICD-10-PCS; 2022-03-02)
PROC: 4A0335C Measurement of Arterial Flow, Coronary, Percutaneous Approach (ICD-10-PCS; principal; 2022-03-05 07:30)
PROC: 5A1935Z Respiratory Ventilation, Less than 24 Consecutive Hours (ICD-10-PCS; principal; 2022-03-05 07:30)
PROC: 0W9C30Z Drainage of Mediastinum with Drainage Device, Percutaneous Approach (ICD-10-PCS; principal; 2022-03-05 07:30)
PROC: 6A550Z2 Pheresis of Platelets, Single (ICD-10-PCS; principal; 2022-03-05 07:30)
PROC: 0JH63VZ Insertion of Infusion Pump into Chest Subcutaneous Tissue and Fascia, Percutaneous Approach (ICD-10-PCS; principal; 2022-03-05 07:30)
PROC: B246ZZ4 Ultrasonography of Right and Left Heart, Transesophageal (ICD-10-PCS; principal; 2022-03-05 07:30)
PROC: 0210099 Bypass Coronary Artery, One Artery from Left Internal Mammary with Autologous Venous Tissue, Open Approach (ICD-10-PCS; principal; 2022-03-05 07:30)
PROC: 0W9B30Z Drainage of Left Pleural Cavity with Drainage Device, Percutaneous Approach (ICD-10-PCS; principal; 2022-03-05 07:30)
PROC: 02NN0ZZ Release Pericardium, Open Approach (ICD-10-PCS; principal; 2022-03-05 07:30)
PROC: 0PB00ZZ Excision of Sternum, Open Approach (ICD-10-PCS; principal; 2022-03-05 07:30)
PROC: 30233N1 Transfusion of Nonautologous Red Blood Cells into Peripheral Vein, Percutaneous Approach (ICD-10-PCS; principal; 2022-03-05 07:30)
PROC: 5A1221Z Performance of Cardiac Output, Continuous (ICD-10-PCS; principal; 2022-03-05 07:30)
DX: I21.4 Non-ST elevation (NSTEMI) myocardial infarction (principal); D62 Acute posthemorrhagic anemia; J81.1 Chronic pulmonary edema; J98.11 Atelectasis; I31.0 Chronic adhesive pericarditis; I25.10 Atherosclerotic heart disease of native coronary artery without angina pectoris; R09.02 Hypoxemia; E78.5 Hyperlipidemia, unspecified; F17.210 Nicotine dependence, cigarettes, uncomplicated; I65.22 Occlusion and stenosis of left carotid artery; J44.9 Chronic obstructive pulmonary disease, unspecified; E87.70 Fluid overload, unspecified; Z28.310 Unvaccinated for COVID-19; K21.9 Gastro-esophageal reflux disease without esophagitis; K63.5 Polyp of colon; R19.7 Diarrhea, unspecified; J40 Bronchitis, not specified as acute or chronic; B96.89 Other specified bacterial agents as the cause of diseases classified elsewhere; K64.9 Unspecified hemorrhoids; F32.A Depression, unspecified; F41.9 Anxiety disorder, unspecified; I10 Essential (primary) hypertension; Z71.6 Tobacco abuse counseling; I25.2 Old myocardial infarction; Z79.82 Long term (current) use of aspirin; Z79.899 Other long term (current) drug therapy; Z87.19 Personal history of other diseases of the digestive system; Z82.49 Family history of ischemic heart disease and other diseases of the circulatory system; Z86.010 Personal history of colon polyps
CPT/HCPCS: 36415; 36600; 71045; 71046; 80048; 80053; 80061; 80074; 81003; 82330; 82805; 83036; 83690; 83735; 84132; 84443; 84484; 85025; 85027; 85379; 85520; 85610; 85730; 86850; 86891; 86900; 86901; 86920; 87070; 87077; 87186; 87205; 93005; 93306; 93308; 93458; 93880; 93922; 93970; 94002; 94003; 94150; 94640; 94760; 96374; 99291

== ENCOUNTER 2023-01-28 13:51 | Observation (INO) | payer BC ==
[2023-01-28] MEDS ORDERED: NITROGLYCERIN OINT 1 INCH/GM PACKET TOPICAL STA (15:05)
[2023-01-28] MEDS ORDERED: ASPIRIN 81 MG PO STA (15:05)
--- NOTE | 2023-01-28 15:08 | ED ---
General Adult HPI - General Chief complaint: Chest Pain Stated complaint: Chest tightness, dizziness, nausea Time Seen by Provider: 01/28/23 14:55 Source: patient, family, RN notes reviewed Mode of arrival: wheelchair Limitations: no limitations - History of Present Illness Initial comments: Patient is a pleasant 47-year-old male presenting to the emergency department with concerns with chest discomfort. Onset of symptoms was around 9 AM this morning while moving heavy bags. Patient did have tightness in his chest that was somewhat severe. Patient did have associated nausea, dyspnea, diaphoresis. Patient was also lightheaded. Those associated symptoms have resolved. Patient only has mild tightness at this time rated 3/10. Patient does have history of similar symptoms previously prior to his CABG. - Related Data Home Medications Medication Instructions Recorded Confirmed Rosuvastatin [Crestor] 20 mg PO DAILY 03/02/22 03/02/22 Vortioxetine Hydrobromide 10 mg PO DAILY 03/02/22 03/02/22 [Trintellix] Previous Rx's Medication Instructions Recorded Acetaminophen Tab [Tylenol] 1,000 mg PO Q6HR PRN tab 03/10/22 Aspirin 325 mg PO DAILY #30 tab 03/10/22 Clopidogrel [Plavix] 75 mg PO DAILY #30 tab 03/10/22 Furosemide [Lasix] 20 mg PO DAILY #5 tab 03/10/22 Levofloxacin [Levaquin] 750 mg PO DAILY 7 Days #1 tab 03/10/22 Metoprolol Tartrate [Lopressor] 25 mg PO TID #90 tab 03/10/22 Nicotine 14Mg/24Hr Patch [Habitrol] 1 patch TRANSDERM DAILY #14 patch 03/10/22 Pantoprazole [Protonix] 40 mg PO AC-BRKFST #30 tab 03/10/22 Sennosides-Docusate Sodium 2 each PO HS PRN tab 03/10/22 [Senokot-S] Allergies Allergy/AdvReac Type Severity Reaction Status Date / Time No Known Allergies Allergy Verified 03/05/22 06:36 Review of Systems ROS Statement: Those systems with pertinent positive or pertinent negative responses have been documented in the HPI. ROS Other: All systems not noted in ROS Statement are negative. Constitutional: Denies: fever Eyes: Denies: eye pain ENT: Denies: ear pain Respiratory: Reports: as per HPI Cardiovascular: Reports: as per HPI, chest pain Endocrine: Denies: fatigue Gastrointestinal: Denies: abdominal pain Genitourinary: Denies: dysuria Past Medical History Past Medical History: Hyperlipidemia, Hypertension Last Myocardial Infarction Date:: 03/02/2022 History of Any Multi-Drug Resistant Organisms: None Reported Past Surgical History: Appendectomy, Coronary Bypass/CABG Additional Past Surgical History / Comment(s): Colonoscopy 15 years ago with findings of polyps Past Anesthesia/Blood Transfusion Reactions: No Reported Reaction Past Psychological History: Anxiety, Depression Smoking Status: Former smoker Past Alcohol Use History: Rare Past Drug Use History: None Reported - Past Family History Mother Family Medical History: Diabetes Mellitus, Myocardial Infarction (ND) (At age 48) Father Family Medical History: No Reported History General Exam Limitations: no limitations General appearance: alert, in no apparent distress Head exam: Present: normocephalic Eye exam: Present: normal appearance Neck exam: Present: normal inspection Respiratory exam: Present: normal lung sounds bilaterally Cardiovascular Exam: Present: regular rate, normal rhythm, normal heart sounds Expanded Peripheral pulses: 2+: Radial (R), Radial (L), Dorsalis Pedis (R), Dorsalis Pedis (L) GI/Abdominal exam: Present: soft. Absent: tenderness Extremities exam: Present: normal inspection. Absent: pedal edema, calf tenderness Neurological exam: Present: alert Psychiatric exam: Present: normal affect, normal mood Skin exam: Present: normal color Course Vital Signs 01/28/23 14:10 Temperature 97.9 F Pulse Rate 79 Respiratory 16 Rate Blood Pressure 120/80 O2 Sat by Pulse 97 Oximetry EKG Findings - EKG Results: EKG: interpreted by ERMD (Right axis. Nonspecific ST-T. Previous EKG reviewed) , sinus rhythm, normal QRS Medical Decision Making - Medical Decision Making Was pt. sent in by a medical professional or institution (, PA, TRAFFIC I MANAGER, urgent care, hospital, or intermediate...) When possible be specific @ -No Did you speak to anyone other than the patient for history (EMS, parent, family, police, friend...)? What history was obtained from this source @ -Family is present and helped provide history including previous surgery Did you review nursing and triage notes (agree or disagree)? Why? @ -I reviewed and agree with nursing and triage notes Were old charts reviewed (outside hosp., previous admission, EMS record, old EKG, old radiological studies, urgent care reports/EKG's, intermediate records)? Report findings @ -No old charts were reviewed Differential Diagnosis (chest pain, altered mental status, abdominal pain women, abdominal pain men, vaginal bleeding, weakness, fever, dyspnea, syncope, headache, dizziness, GI bleed, back pain, seizure, CVA, palpatations, mental health, musculoskeletal)? @ -Differential Chest Pain: Stable Angina, Unstable Angina, STEMI, NSTEMI Aortic Dissection, Pneumothorax, Musculoskeletal, Esophageal Spasm GERD, Cholecystitis, Pancreatitis, Zoster, this is not meant to be an all-inclusive list. EKG interpreted by me (3pts min.). @ -As above X-rays interpreted by me (1pt min.). @ -Chest x-ray shows no acute process CT interpreted by me (1pt min.). @ -None done U/S interpreted by me (1pt. min.). @ -None done What testing was considered but not performed or refused? (CT, X-rays, U/S, labs)? Why? @ -None What meds were considered but not given or refused? Why? @ -None Did you discuss the management of the patient with other professionals (professionals i.e. , PA, TRAFFIC I MANAGER, lab, RT, psych nurse, manager social media, lawyer real estate, teacher, medical officer psychiatry, case management associate)? Give summary @ -Case was discussed with Dr. Keane, who will admit covering for Dr. Whitten. Was smoking cessation discussed for >3mins.? @ -No Was critical care preformed (if so, how long)? @ -No Were there social determinants of health that impacted care today? How? (Homelessness, low income, unemployed, alcoholism, drug addiction, transportation, low edu. Level, literacy, decrease access to med. care, penitentiary, rehab)? @ -No Was there de-escalation of care discussed even if they declined (Discuss DNR or withdrawal of care, Hospice)? DNR status @ -No What co-morbidities impacted this encounter? (DM, HTN, Smoking, COPD, CAD, Cancer, CVA, ARF, Chemo, Hep., AIDS, mental health diagnosis, sleep apnea, morbid obesity)? @ -None Was patient admitted / discharged? Hospital course, mention meds given and route, prescriptions, significant lab abnormalities, going to OR and other pertinent info. @ -Patient reevaluated and resting comfortably in bed. Patient and family updated on results and plan. Patient will be admitted. Orders written. Cardiac consult will be placed. Undiagnosed new problem with uncertain prognosis? @ -No Drug Therapy requiring intensive monitoring for toxicity (Heparin, Nitro, Insulin, Cardizem)? @ -No Were any procedures done? @ -No Diagnosis/symptom? @ -Chest pain Acute, or Chronic, or Acute on Chronic? @ -Acute Uncomplicated (without systemic symptoms) or Complicated (systemic symptoms)? @ -default Side effects of treatment? @ -No Exacerbation, Progression, or Severe Exacerbation? @ -No Poses a threat to life or bodily function? How? (Chest pain, USA, ND, pneumonia, PE, COPD, DKA, ARF, appy, cholecystitis, CVA, Diverticulitis, Homicidal, Suicidal, threat to staff... and all critical care pts) @ -No - Lab Data Result diagrams: 01/28/23 15:08 01/28/23 15:09 Lab Results 01/28/23 01/28/23 01/28/23 Range/Units 15:08 15:08 15:08 WBC 7.3 (3.8-10.6) k/uL RBC 4.81 (4.30-5.90) m/uL Hgb 14.6 (13.0-17.5) gm/dL Hct 41.9 (39.0-53.0) % MCV 87.2 (80.0-100.0) fL MCH 30.4 (25.0-35.0) pg MCHC 34.9 (31.0-37.0) g/dL RDW 13.8 (11.5-15.5) % Plt Count 236 (150-450) k/uL MPV 7.3 Neutrophils % 60 % Lymphocytes % 29 % Monocytes % 7 % Eosinophils % 2 % Basophils % 0 % Neutrophils # 4.4 (1.3-7.7) k/uL Lymphocytes # 2.1 (1.0-4.8) k/uL Monocytes # 0.5 (0-1.0) k/uL Eosinophils # 0.2 (0-0.7) k/uL Basophils # 0.0 (0-0.2) k/uL PT 9.8 (9.0-12.0) sec INR 0.9 (<1.2) APTT 22.1 (22.0-30.0) sec Sodium (137-145) mmol/L Potassium (3.5-5.1) mmol/L Chloride (98-107) mmol/L Carbon Dioxide (22-30) mmol/L Anion Gap mmol/L BUN (9-20) mg/dL Creatinine (0.66-1.25) mg/dL Est GFR (CKD-EPI)AfAm (>60 ml/min/1.73 sqM) Est GFR (CKD-EPI)NonAf (>60 ml/min/1.73 sqM) Glucose (74-99) mg/dL Calcium (8.4-10.2) mg/dL Magnesium (1.6-2.3) mg/dL Total Bilirubin (0.2-1.3) mg/dL AST (17-59) U/L ALT (4-49) U/L Alkaline Phosphatase (38-126) U/L Troponin I <0.012 (0.000-0.034) ng/mL Total Protein (6.3-8.2) g/dL Albumin (3.5-5.0) g/dL 01/28/23 Range/Units 15:09 WBC (3.8-10.6) k/uL RBC (4.30-5.90) m/uL Hgb (13.0-17.5) gm/dL Hct (39.0-53.0) % MCV (80.0-100.0) fL MCH (25.0-35.0) pg MCHC (31.0-37.0) g/dL RDW (11.5-15.5) % Plt Count (150-450) k/uL MPV Neutrophils % % Lymphocytes % % Monocytes % % Eosinophils % % Basophils % % Neutrophils # (1.3-7.7) k/uL Lymphocytes # (1.0-4.8) k/uL Monocytes # (0-1.0) k/uL Eosinophils # (0-0.7) k/uL Basophils # (0-0.2) k/uL PT (9.0-12.0) sec INR (<1.2) APTT (22.0-30.0) sec Sodium 138 (137-145) mmol/L Potassium 4.4 (3.5-5.1) mmol/L Chloride 108 H (98-107) mmol/L Carbon Dioxide 21 L (22-30) mmol/L Anion Gap 9 mmol/L BUN 21 H (9-20) mg/dL Creatinine 1.09 (0.66-1.25) mg/dL Est GFR (CKD-EPI)AfAm >90 (>60 ml/min/1.73 sqM) Est GFR (CKD-EPI)NonAf 82 (>60 ml/min/1.73 sqM) Glucose 112 H (74-99) mg/dL Calcium 9.8 (8.4-10.2) mg/dL Magnesium 2.1 (1.6-2.3) mg/dL Total Bilirubin 0.4 (0.2-1.3) mg/dL AST 33 (17-59) U/L ALT 32 (4-49) U/L Alkaline Phosphatase 55 (38-126) U/L Troponin I (0.000-0.034) ng/mL Total Protein 7.0 (6.3-8.2) g/dL Albumin 4.2 (3.5-5.0) g/dL Disposition Clinical Impression: Chest pain Disposition: ADMITTED IP TO THIS HOSP Is patient prescribed a controlled substance at d/c from ED?: No Referrals: Karissa Whitten MD [Primary Care Provider] - 1-2 days Time of Disposition: 17:10
[2023-01-28 15:39] LABS: Basophils % (A) 0 %; Eosinophils # (A) 0.2 k/uL (0-0.7); Eosinophils % (A) 2 %; HCT 41.9 % (39.0-53.0); HGB 14.6 gm/dL (13.0-17.5); Lymphocytes # (A) 2.1 k/uL (1.0-4.8); Lymphocytes % (A) 29 %; MCH 30.4 pg (25.0-35.0); MCHC 34.9 g/dL (31.0-37.0); MCV 87.2 fL (80.0-100.0); Mean Platelet Volume 7.3; Monocytes # (A) 0.5 k/uL (0-1.0); Monocytes % (A) 7 %; Neutrophils # (A) 4.4 k/uL (1.3-7.7); Neutrophils % (A) 60 %; Platelet Count 236 k/uL (150-450); RBC 4.81 m/uL (4.30-5.90); RDW 13.8 % (11.5-15.5); WBC 7.3 k/uL (3.8-10.6)
--- NOTE | 2023-01-28 15:48 | XR ---
EXAMINATION TYPE: XR chest 2V DATE OF EXAM: 01/28/2023 COMPARISON: 03/10/2022 HISTORY: Chest pain TECHNIQUE: Frontal and lateral views of the chest are obtained. FINDINGS: There is no focal air space opacity. No evidence for pneumothorax. No pleural effusion. The cardiac silhouette size is within normal limits. The osseous structures are grossly intact. IMPRESSION: 1. No acute cardiopulmonary process.
[2023-01-28 15:58] LABS: INR 0.9 (<1.2); Partial Thromboplastin Time 22.1 sec (22.0-30.0); Prothrombin Time 9.8 sec (9.0-12.0)
[2023-01-28 16:09] LABS: ALT 32 U/L (4-49); AST 33 U/L (17-59); African American GFR (CKD) >90 (>60 ml/min/1.73 sqM); Albumin 4.2 g/dL (3.5-5.0); Alkaline Phosphatase 55 U/L (38-126); Anion Gap 9 mmol/L; Blood Urea Nitrogen 21 mg/dL (9-20); Calcium 9.8 mg/dL (8.4-10.2); Carbon Dioxide 21 mmol/L (22-30); Chloride 108 mmol/L (98-107); Glucose 112 mg/dL (74-99); Magnesium 2.1 mg/dL (1.6-2.3); Non-African American GFR(CKD) 82 (>60 ml/min/1.73 sqM); Sodium 138 mmol/L (137-145); Total Bilirubin 0.4 mg/dL (0.2-1.3)
[2023-01-28 16:16] LABS: Potassium 4.4 mmol/L (3.5-5.1)
[2023-01-28 17:11] VITALS: TEMP 98.3
[2023-01-28] MEDS ORDERED: NITROGLYCERIN SL TABS 0.4 MG TAB SUBLINGUAL PRN (17:11)
[2023-01-28] MEDS: NITROGLYCERIN OINT 1 INCH/GM PACKET TOPICAL SCH (18:08)
[2023-01-28 20:13] VITALS: RESP 17
[2023-01-28 23:59] VITALS: BP 112/60
[2023-01-29 02:26] VITALS: PULSE 56
[2023-01-29] MEDS: NITROGLYCERIN OINT 1 INCH/GM PACKET TOPICAL SCH ×2 (05:01)
[2023-01-29] MEDS ORDERED: ASPIRIN 325 MG TAB PO SCH (09:00)
[2023-01-29] MEDS ORDERED: VORTIOXETINE HYDROBROMIDE 20 MG TABLET PO SCH (09:00)
[2023-01-29] MEDS ORDERED: METOPROLOL SUCCINATE (ER) 25 MG TAB.ER.24H PO SCH (09:00)
[2023-01-29] MEDS ORDERED: ATORVASTATIN 40 MG TAB PO SCH (09:00)
[2023-01-29] MEDS ORDERED: CLOPIDOGREL 75 MG TAB PO SCH (09:00)
== END 2023-01-29 04:00 | disposition left against medical advice (07) ==
LOC: EC 13:51 → 6NMEDSUR 17:12
PROVIDERS: ADMIT Internal Medicine; ATTEND Internal Medicine
DX: R07.89 Other chest pain (principal); R42 Dizziness and giddiness; R11.2 Nausea with vomiting, unspecified; E78.5 Hyperlipidemia, unspecified; F10.20 Alcohol dependence, uncomplicated; F17.200 Nicotine dependence, unspecified, uncomplicated; I25.2 Old myocardial infarction; Z79.02 Long term (current) use of antithrombotics/antiplatelets; Z79.82 Long term (current) use of aspirin; Z82.49 Family history of ischemic heart disease and other diseases of the circulatory system; Z83.3 Family history of diabetes mellitus; Z95.1 Presence of aortocoronary bypass graft
CPT/HCPCS: 99284; 36415; 93005; 80053; 83735; 84484; 85025; 85610; 85730; 71046; G0378 ×2